=== PATIENT | female | born 1945 | race Caucasian/White ===

== ENCOUNTER → 2017-03-29 | Day surgery (SDC) | payer MEDICARE, BC ==
[~2017-03-29] MED LIST: AMLODIPINE BESYL5 MG PO; AZITHROMYCIN250 MG PO; BENADRYL25 M1 PO; BENZONATATE100 MG PO; BUPIVACAINE 0.25% 30ML SDV INJ ONE; CALCIUM 500+D1 EACH PO; CEFDINIR300 MG PO; CELEBREX100 MG PO; CHLORTHALIDONE25 MG; CLARITIN10 MG PO; CRESTOR10 MG PO; CYMBALTA60 MG PO; FENTANYL CITRATE/PF 100MCG/2 ML INJ ONE; GRALISE600 MG PO; HYDROCHLOROTHIA25 MG PO; HYDROCODON-ACE1 EA12 PO; IOPAMIDOL 200 MG/ML 20 ML VIAL IT ONE; IRON18 MG PO; LIDOCAINE HCL 1% 30ML-PF VIAL ONE; LISINOPRIL40 MG PO; LYRICA75 MG PO; MELOXICAM7.5 MG PO; METFORMIN HCL1000 MG PO; METHOCARBAMOL750 MG PO; MIDAZOLAM HCL 2 MG/2 ML VIAL ONE; MULTI-VITAMIN1 EACH PO; MULTIVITAMINS1 EAC8 PO; NEXIUM; NORCO 10-325 T1 EACH PO; NORCO 10MG-325MG1 EA PO; PANTOPRAZOLE SO40 MG PO; POTASSIUM GLUCONATE PO; PROPOFOL IV EMULSION 10 MG/ML 20 ML VIAL ONE; RANITIDINE HCL300 MG PO; REFLUX MEDICATION PO; ROPINIROLE HC0.25 MG PO; ROPINIROLE HCL1 MG PO; STOOL SOFTENER50 MG PO; SUCRALFATE1 GM PO; TIZANIDINE HCL4 MG PO; VITAMIN B12-FO1 EACH PO; VITAMIN C PO; VITAMIN D400 UNIT PO; VITAMIN D5000 UNIT PO; VOLTAREN100 GM TP; Z-PAK
--- OUTSIDE RECORDS SUMMARY | 2017-03-29 05:43 | XMS REPORT | Clinical Summary ---
Author Author [facility] Address Unknown Phone Unavailable Care Team Providers Care Regional Maintenance Manager Name Role Phone Peña Vela MD PCP Allergies Active Allergy Reactions Severity Noted Date Comments Sulfa (Sulfonamide Rash High 05/05/2015 Antibiotics) Tramadol Rash High 05/05/2015 Current Medications Prescription Sig. Disp. Refills Start End Date Status Date HYDROcodone-acetaminophen Take 1 tablet by mouth 4 0 05/17/19 Active (NORCO 10-325) 10-325 mg (four) times a day. 16 per tablet rOPINIRole (REQUIP) 1 MG Take 1 tablet by mouth 1 04/25/19 Active tablet daily. 16 multivitamin (THERAGRAN) Take 1 tablet by mouth Active tablet daily. rOPINIRole (REQUIP) 0.25 as needed. 1 05/02/19 Active MG tablet 17 ERGOCALCIFEROL, VITAMIN Take by mouth. 5,000 Active D2, (VITAMIN D2 ORAL) POTASSIUM ACETATE MISC 599 mg. Active esomeprazole (NexIUM) 40 Take 1 capsule by mouth 0 09/09/19 Active MG capsule daily. 17 LYRICA 75 mg capsule Take 1 capsule by mouth 2 1 08/15/19 Active (two) times a day. 17 tiZANidine (ZANAFLEX) 4 Take 1 tablet by mouth 2 0 11/03/19 Active MG tablet (two) times a day. 17 nystatin-triamcinolone 1 10/30/19 Active (MYCOLOG) 100,000-0.1 17 unit/gram-% ointment mupirocin (BACTROBAN) 2 % 1 10/06/19 Active ointment 17 rosuvastatin (CRESTOR) 10 Take 1 tablet (10 mg 90 tablet 1 11/08/19 Active MG tablet total) by mouth daily. 17 metFORMIN XR Take 1 tablet (750 mg 180 tablet 1 11/08/19 Active (GLUCOPHAGE-XR) 750 mg 24 total) by mouth 2 (two) 17 hr tablet times a day. lisinopril Take 1 tablet (40 mg 90 tablet 1 11/08/19 Active (PRINIVIL,ZESTRIL) 40 mg total) by mouth daily. 17 tablet VOLTAREN 1 % gel Apply topically 4 (four) 500 g 11 11/08/19 Active times a day. 17 chlorthalidone (HYGROTEN) Take 1 tablet (25 mg 90 tablet 0 01/18/20 01/18/20 Active 25 MG tablet total) by mouth daily. 17 18 fluocinolone acetonide 0 01/11/20 Active oil 0.01 % drops 17 ipratropium (ATROVENT) 0 01/10/20 Active 0.03 % nasal spray 17 amLODIPine (NORVASC) 5 mg TAKE ONE TABLET BY MOUTH 90 tablet 1 Active tabletIndications: ONCE DAILY 18 Essential hypertension DULoxetine (CYMBALTA) 60 TAKE ONE CAPSULE BY MOUTH 90 capsule 1 Active MG capsule TWICE DAILY 18 meloxicam (MOBIC) 15 mg Take 1 tablet (15 mg 90 tablet 1 03/16/19 Active tablet total) by mouth daily for 18 18 90 days. VOLTAREN 1 % gel 1 04/29/19 11/08/19 Discontin 16 17 ued lidocaine (XYLOCAINE) 5 % 0 10/25/19 11/08/19 Discontin ointment 16 17 ued baclofen (LIORESAL) 20 MG 0 10/21/19 11/08/19 Discontin tablet 16 17 ued PREGABALIN (LYRICA ORAL) Take 75 mg by mouth 2 11/08/19 Discontin (two) times a day. 17 ued amLODIPine (NORVASC) 5 MG Take 1 tablet (5 mg 90 tablet 1 11/18/19 05/16/19 Discontin tabletIndications: total) by mouth daily. 16 17 ued Essential hypertension DULoxetine (CYMBALTA) 60 Take 1 capsule (60 mg 90 capsule 1 11/18/19 05/16/19 Discontin MG capsule total) by mouth daily. 16 17 ued hydrochlorothiazide Take 1 tablet (25 mg 90 tablet 1 11/18/19 Discontin (HYDRODIURIL) 25 MG total) by mouth daily. 16 17 ued tabletIndications: Essential hypertension lisinopril Take 1 tablet (40 mg 90 tablet 1 11/18/19 05/16/19 Discontin (PRINIVIL,ZESTRIL) 40 MG total) by mouth daily. 16 17 ued tablet loratadine (CLARITIN) 10 Take 1 tablet (10 mg 90 tablet 1 11/18/19 11/08/19 Discontin mg tablet total) by mouth daily. 16 17 ued metFORMIN XR Take 1 tablet (750 mg 180 tablet 1 11/18/19 05/16/19 Discontin (GLUCOPHAGE-XR) 750 MG 24 total) by mouth 2 (two) 16 17 ued hr tablet times a day. rosuvastatin (CRESTOR) 10 Take 1 tablet (10 mg 90 tablet 1 11/18/19 05/16/19 Discontin MG tablet total) by mouth daily. 16 17 ued meloxicam (MOBIC) 7.5 MG Take 1 tablet (7.5 mg 180 tablet 1 11/18/19 05/19/19 Discontin tabletIndications: total) by mouth 2 (two) 16 17 ued Arthritis times a day. ranitidine (ZANTAC) 300 Take 1 tablet (300 mg 90 tablet 3 11/18/19 05/16/19 Discontin MG tablet total) by mouth nightly. 16 17 ued methocarbamol (ROBAXIN) Take 750 mg by mouth 11/08/19 Discontin 750 MG tablet daily. 17 ued amLODIPine (NORVASC) 2.5 Take 1 tablet (2.5 mg 90 tablet 1 05/16/19 11/08/19 Discontin mg tabletIndications: total) by mouth daily. 17 17 ued Essential hypertension hydroCHLOROthiazide Take 1 tablet (12.5 mg 90 tablet 1 05/16/1904/24 Discontin (HYDRODIURIL) 12.5 MG total) by mouth daily. 17 17 ued tabletIndications: Essential hypertension DULoxetine (CYMBALTA) 60 Take 1 capsule (60 mg 90 capsule 1 05/16/19 09/09/19 Discontin MG capsule total) by mouth 2 (two) 17 17 ued times a day. lisinopril Take 1 tablet (40 mg 90 tablet 1 05/16/19 05/19/19 Discontin (PRINIVIL,ZESTRIL) 40 mg total) by mouth daily. 17 17 ued tablet metFORMIN XR Take 1 tablet (750 mg 180 tablet 1 05/16/19 11/08/19 Discontin (GLUCOPHAGE-XR) 750 mg 24 total) by mouth 2 (two) 17 17 ued hr tablet times a day. rosuvastatin (CRESTOR) 10 Take 1 tablet (10 mg 90 tablet 1 05/16/19 11/08/19 Discontin MG tablet total) by mouth daily. 17 17 ued ranitidine (ZANTAC) 300 Take 1 tablet (300 mg 90 tablet 1 05/16/19 01/10/20 Discontin MG tablet total) by mouth nightly. 17 17 ued lisinopril Take 1 tablet (40 mg 90 tablet 1 05/23/19 11/08/19 Discontin (PRINIVIL,ZESTRIL) 40 mg total) by mouth daily. 17 17 ued tablet meloxicam (MOBIC) 7.5 mg Take 1 tablet (7.5 mg 180 tablet 1 05/23/19 11/08/19 Discontin tabletIndications: total) by mouth 2 (two) 17 17 ued Arthritis times a day. loratadine (CHILDREN'S Chew 1 tablet (5 mg 30 tablet 11 05/23/1904/24 Discontin CLARITIN) 5 mg chewable total) daily. 17 17 ued tablet meloxicam (MOBIC) 7.5 mg TAKE ONE TABLET BY MOUTH 180 tablet 0 11/08/19 Discontin tabletIndications: TWICE DAILY 17 17 ued Arthritis DULoxetine (CYMBALTA) 60 TAKE ONE CAPSULE BY MOUTH 90 capsule 1 11/08/19 Discontin MG capsule TWICE DAILY 17 17 ued cetirizine (ZyrTEC) 10 MG Take 10 mg by mouth 03/16/19 Discontin tablet daily. 18 ued hydroCHLOROthiazide Take 1 tablet (12.5 mg 90 tablet 1 11/08/1906/24 Discontin (HYDRODIURIL) 12.5 MG total) by mouth daily. 17 17 ued tabletIndications: Essential hypertension amLODIPine (NORVASC) 2.5 Take 1 tablet (2.5 mg 90 tablet 1 11/08/19 01/10/20 Discontin mg tabletIndications: total) by mouth daily. 17 17 ued Essential hypertension meloxicam (MOBIC) 7.5 mg Take 1 tablet (7.5 mg 180 tablet 1 11/08/19 11/25/19 Discontin tabletIndications: total) by mouth 2 (two) 17 17 ued Arthritis times a day. DULoxetine (CYMBALTA) 60 Take 1 capsule (60 mg 90 capsule 1 11/08/19 03/02/19 Discontin MG capsule total) by mouth 2 (two) 17 18 ued times a day. celecoxib (CeleBREX) 200 Take 1 capsule (200 mg 30 capsule 5 11/25/19 12/25/19 MG capsule total) by mouth daily for 17 17 30 days. celecoxib (CeleBREX) 200 2 01/10/20 02/23/19 Discontin MG capsule 17 18 ued QUEtiapine (SEROquel) 25 0 01/10/20 02/23/19 Discontin MG tablet 17 18 ued amLODIPine (NORVASC) 5 mg Take 1 tablet (5 mg 30 tablet 0 01/10/20 02/23/19 Discontin tablet total) by mouth daily. 17 18 ued hydroCHLOROthiazide Take 1 tablet (25 mg 30 tablet 0 01/10/20 Discontin (HYDRODIURIL) 25 MG total) by mouth daily. 17 17 ued tablet meloxicam (MOBIC) 7.5 mg Take 1 tablet (7.5 mg 90 tablet 0 02/23/19 03/16/19 Discontin tablet total) by mouth daily. 18 18 ued Active Problems Problem Noted Date BMI 30.0-30.9,adult 03/18/2017 Influenza vaccination administered at current visit 11/07/2016 Arthritis 11/07/2016 Overview: cont prn tx Mixed hyperlipidemia 05/14/2012 Recurrent major depressive episodes, in full remission 12/12/2010 Diabetes mellitus 10/25/2010 Essential hypertension 10/25/2010 Encounters Date Type Specialty Care Team Description 03/16/2017 Clinical Family Medicine Peña Vlea MD Blood pressure check Support (Primary Dx); BMI 30.0-30.9,adult 03/02/2017 Refill Family Medicine Peña Vela MD 02/23/2017 Office Visit Family Medicine Haley Sylvester NP Trigeminal neuralgia (Primary Dx) 02/22/2017 Telephone Family Medicine Merced Sumner MA 02/17/2017 Refill [facility] Peña Vela MD Essential hypertension 01/26/2017 Clinical [facility] Peña Vela MD Blood pressure check Support (Primary Dx) 01/17/2017 Office Visit [facility] Haley Sylvester, YAMEL Essential hypertension 01/17/2017 Telephone [facility] Peña Vela MD 01/09/2017 Office Visit [facility] Haley Sylvester, YAMEL Essential hypertension 11/27/2016 Office Visit [facility] Peña Vela MD Blood pressure check (Primary Dx) 11/24/2016 Clinical [facility] Peña Vela MD Essential hypertension Support (Primary Dx) 11/10/2016 Refill [facility] Alicia Biggs MA 11/07/2016 Office Visit [facility] Peña Vela MD Mixed hyperlipidemia (Primary Dx); Essential hypertension; Arthritis; Recurrent major depressive episodes, in full remission; Type 2 diabetes mellitus without complication, without long-term current use of insulin; Influenza vaccination administered at current visit; Elevated platelet count 09/08/2016 Refill [facility] Peña Gray MD 05/18/2016 Refill [facility] Peña Vela MD Arthritis 05/15/2016 Office Visit [facility] Peña Vela MD Type 2 diabetes mellitus without complication, without long-term current use of insulin (Primary Dx); Essential hypertension; Recurrent major depressive episodes, in full remission; Mixed hyperlipidemia; Arthritis after 03/28/2016 Immunizations Name Dates Previously Given Next Due DTaP 09/11/2014 FLUZONE HIGH-DOSE PF 11/07/2016, 11/18/2015 Influenza Trivalent 11/24/2014, 11/24/2012, 11/16/2011 Pneumococcal Conjugate 05/26/2014 13-Valent Family History Medical History Relation Name Comments Alzheimer's disease Father Arthritis Mother Heart disease Mother Relation Name Status Comments Father Mother Social History Tobacco Use Types Packs/Day Years Used Date Former Smoker Quit: 2001 Smokeless Tobacco: Never Used Alcohol Use Drinks/Week oz/Week Comments No Sex Assigned at Date Recorded Not on file Last Filed Vital Signs Vital Sign Reading Time Taken Blood Pressure 130/80 03/16/2017 1:22 PM [employer]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 Pulse 68 03/16/2017 1:22 PM [employer]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 Temperature 36.6 C (97.8 F) 03/16/2017 1:22 PM [employer]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 Respiratory Rate 18 02/23/2017 10:05 AM [employer]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 Oxygen Saturation 97% 03/16/2017 1:22 PM [employer]ART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 Inhaled Oxygen - - Concentration Weight 76.3 kg (168 lb 3.2 oz) 03/16/2017 1:22 PM [employer]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 Height 158.8 cm (5' 2.5") 03/16/2017 1:22 PM [employer]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 Body Mass Index 30.27 03/16/2017 1:22 PM [employer]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 Plan of Treatment Date Type Specialty Care Team Description 05/08/2017 Office Visit Family Medicine Peña Vela MD [address] [place] [address] [phone] Health Maintenance Due Date Last Done Comments FOOT EXAM 1957 OPHTHALMOLOGY EXAM 1957 COLONOSCOPY 1997 MAMMOGRAM 1997 ZOSTER VACCINE 2007 PNEUMOCOCCAL 02/04/2012 POLYSACCHARIDE VACCINE AGE 65 AND OVER URINE MICROALBUMIN 05/08/2017 05/08/2016, 11/08/2015, 05/06/2015 PNEUMOCOCCAL-13 Completed 05/26/2014 INFLUENZA VACCINE Completed 11/07/2016, 11/18/2015, 11/24/2014, Additional history exists Results * Urinalysis, automated with microscopy (10/31/2016 8:15 AM) Only the most recent of 2 results within the time period is included. Component Value Ref Range Color, UA YELLOW YELLOW Appearance CLEAR CLEAR Specific gravity, urine 1.015 1.001 - 1.035 pH, urine 5.5 5.0 - 8.0 Glucose, urine NEGATIVE NEGATIVE Bilirubin, UA NEGATIVE NEGATIVE Ketones, UA NEGATIVE NEGATIVE Occult blood, urine NEGATIVE NEGATIVE Protein, UA NEGATIVE NEGATIVE Nitrite, UA NEGATIVE NEGATIVE Leukocyte esterase, UA TRACE (A) NEGATIVE WBC, UA NONE SEEN < OR=5 /HPF RBC, UA NONE SEEN < OR=2 /HPF Squamous epithelial NONE SEEN < OR=5 /HPF cells, UA Bacteria, UA NONE SEEN NONE SEEN /HPF Hyaline casts, UA NONE SEEN NONE SEEN /LPF Specimen Performing Laboratory [facility] Narrative FASTING:YES * CBC with platelet and differential (10/31/2016 8:15 AM) Only the most recent of 2 results within the time period is included. Component Value Ref Range WBC 7.8 3.8 - 10.8 Thousand/uL RBC 4.34 3.80 - 5.10 Million/uL HGB 12.1 11.7 - 15.5 g/dL HCT 37.7 35.0 - 45.0 % MCV 86.9 80.0 - 100.0 fL MCH 27.9 27.0 - 33.0 pg MCHC 32.1 32.0 - 36.0 g/dL RDW 12.4 11.0 - 15.0 % Platelet count 412 (H) 140 - 400 Thousand/uL MPV 9.4 7.5 - 12.5 fL Neutrophils, absolute 3,463 1,500 - 7,800 cells/uL Lymphocytes, absolute 3,299 850 - 3,900 cells/uL Monocytes, absolute 757 200 - 950 cells/uL Eosinophils, absolute 211 15 - 500 cells/uL Basophils, absolute 70 0 - 200 cells/uL Neutrophils 44.4 % Lymphocytes 42.3 % Monocytes 9.7 % Eosinophils 2.7 % Basophils + RC 0.9 % Specimen Performing Laboratory Blood [facility] Narrative FASTING:YES * Hemoglobin A1c (10/31/2016 8:15 AM) Only the most recent of 2 results within the time period is included. Component Value Ref Range Hemoglobin A1C 6.2 (H) <5.7 % of total Hgb Comment: For someone without known diabetes, a hemoglobin A1c value between 5.7% and 6.4% is consistent with prediabetes and should be confirmed with a follow-up test. For someone with known diabetes, a value <7% indicates that their diabetes is well controlled. A1c targets should be individualized based on duration of diabetes, age, comorbid conditions, and other considerations. This assay result is consistent with an increased risk of diabetes. Currently, no consensus exists regarding use of hemoglobin A1c for diagnosis of diabetes for children. Specimen Performing Laboratory [facility] Narrative FASTING:YES * Hepatic function panel (10/31/2016 8:15 AM) Component Value Ref Range Protein 6.2 6.1 - 8.1 g/dL Albumin, S 4.0 3.6 - 5.1 g/dL Globulin, total 2.2 1.9 - 3.7 g/dL (calc) Albumin/globulin ratio 1.8 1.0 - 2.5 (calc) Total bilirubin 0.3 0.2 - 1.2 mg/dL Bilirubin direct 0.1 < OR=0.2 mg/dL Bilirubin, indirect 0.2 0.2 - 1.2 mg/dL (calc) Alkaline phosphatase 63 33 - 130 U/L AST 13 10 - 35 U/L ALT 11 6 - 29 U/L Specimen Performing Laboratory [facility] Narrative FASTING:YES * Lipid panel (10/31/2016 8:15 AM) Component Value Ref Range Cholesterol, total 132 <200 mg/dL HDL cholesterol 65 >50 mg/dL Triglycerides 114 <150 mg/dL LDL cholesterol 47 mg/dL (calc) calculated Comment: Reference range: <100 Desirable range <100 mg/dL for patients with CHD or diabetes and <70 mg/dL for diabetic patients with known heart disease. LDL-C is now calculated using the Francia calculation, which is a validated novel method providing better accuracy than the Friedewald equation in the estimation of LDL-C. Eduar SS et al. BRIAN. 2013;310(17): 8521-9874 (http://education.[employer]/faq/QAO750) Cholesterol/HDL ratio 2.0 <5.0 (calc) Non-HDL cholesterol 67 <130 mg/dL (calc) Comment: For patients with diabetes plus 1 major ASCVD risk factor, treating to a non-HDL-C goal of <100 mg/dL (LDL-C of <70 mg/dL) is considered a therapeutic option. Specimen Performing Laboratory [facility] Narrative FASTING:YES * Basic metabolic panel (10/31/2016 8:15 AM) Only the most recent of 2 results within the time period is included. Component Value Ref Range Glucose 116 (H) 65 - 99 mg/dL Comment: Fasting reference interval For someone without known diabetes, a glucose value between 100 and 125 mg/dL is consistent with prediabetes and should be confirmed with a follow-up test. BUN, whole blood 11 7 - 25 mg/dL Creatinine 0.84 0.50 - 0.99 mg/dL Comment: For patients >49 years of age, the reference limit for Creatinine is approximately 13% higher for people identified as -Cuban. EGFR Non-Afr. Cuban 71 > OR=60 mL/min/1.73m2 EGFR 82 > OR=60 mL/min/1.73m2 BUN/creatinine ratio NOT APPLICABLE 6 - 22 (calc) Sodium 137 135 - 146 mmol/L Potassium 4.6 3.5 - 5.3 mmol/L Chloride 96 (L) 98 - 110 mmol/L CO2 32 (H) 20 - 31 mmol/L Calcium 10.0 8.6 - 10.4 mg/dL Specimen Performing Laboratory [facility] Narrative FASTING:YES * Microalbumin / creatinine urine ratio (05/08/2016 10:17 AM) Component Value Ref Range Creatinine, urine, random 35 20 - 320 mg/dL Microalbumin, urine 0.2 See Note: mg/dL Comment: Reference Range: Reference Range Not established Microalbumin/creatinine 6 <30 mcg/mg creat ratio Comment: The ADA defines abnormalities in albumin excretion as follows: Category Result (mcg/mg creatinine) Normal <30 Microalbuminuria 30-299 Clinical albuminuria > [id number] The ADA recommends that at least two of three specimens collected within a 3-6 month period be abnormal before considering a patient to be within a diagnostic category. Specimen Performing Laboratory Urine [facility] Narrative FASTING:YES after 03/28/2016 Insurance Payer Benefit Subscriber ID Type Phone Address Plan / Group MEDICARE MEDICARE xxxxxxxxxx Medicare [place], [place] PART A AND B BCBS BCBS xxxxxxxxxxxx PPO CHOICE PPO/[place] [address]
--- OUTSIDE RECORDS SUMMARY | 2017-03-29 05:43 | XMS REPORT ---
Author Author [facility] Address Unknown Phone Unavailable Care Team Providers Care [place] [place] Name Role Phone RAMY MARK PP Unavailable DARIUS SKINNER Unavailable Unavailable Problems This patient has no known problems. Allergies, Adverse Reactions, Alerts This patient has no known allergies or adverse reactions. Medications This patient has no known medications. Encounters Start Date/Time End Date/Time Encounter Type Admission Type Attending Clinicians Care Facility Care Department Encounter ID 2016-08-01 11:05:00 2016-08-01 11:05:00 Outpatient C [facility] [id number] Results Test Description Test Time Test Comments Text Results Atomic Results Result Comments MRI SPINE CERVICAL WO [place] [address] Patient Name: ZAIDA GARZA MR #: [id number] : 1945 Age/Sex: 71/F Req #: [id number] Adm Physician: Ordered by: DARIUS SKINNER MD Report #: [id number] Location: MRI Room/Bed: Procedure: [id number] MRI/MRI SPINE CERVICAL WO Exam Date: 01/10/17 Exam Time: 909 REPORT STATUS: Signed EXAMINATION: MRI of the cervical spine without contrast HISTORY: Neck and shoulder pain, cervical radiculopathy COMPARISON: None available TECHNIQUE: Sagittal T1, T2 , STIR; axial T2, gradient echo. FINDINGS: Curvature: Normal lordosis. Vertebrae: No evidence of neoplasm, infection, or fracture. Diffuse increased T1 bone marrow signal intensity, likely related to osteopenia. Foramen magnum: No mass, Chiari malformation, or basilar invagination. Spinal Cord: Normal size and signal intensity. Soft Tissues: Unremarkable. Incidentally noted prominent perineural cysts along the bilateral C8 nerve root sleeves. Degenerative changes: C1-C2: Small amount of fluid in the right C1-C2 articular space. No canal or foraminal stenosis. C2-C3: Prominent facet arthrosis on the left. No canal or foraminal stenoses C3-C4: Facet arthrosis minimally on the left. No canal or foraminal stenoses C4-C5: Mild bilateral facet arthrosis without canal or foraminal stenoses C5-C6: Mild symmetric disc bulge and facet arthrosis without stenoses C6-C7: Unremarkable. C7-T1: Unremarkable. IMPRESSION: 1. Small amount of fluid in the right C1- C2 articular space, likely related to degenerative changes. 2. Multilevel mild facet arthrosis without canal or foraminal stenosis. Signed by: Dr. Zandra Sherman M.D. on 01/11/2017 7:09 AM Dictated By: ZANDRA SHERMAN MD 8 Transcribed By: HERSON on 01/11/17708 COPY TO: DARIUS SKINNER MD MRI BRAIN WO [place] [address] Patient Name: ZAIDA GARZA MR #: [id number] : 1945 Age/Sex: 71/F Req #: [id number] Adm Physician: Ordered by: DARIUS SKINNER MD Report #: [id number] Location: MRI Room/Bed: Procedure: [id number] MRI/MRI BRAIN WO Exam Date: 11/13/16 Exam Time: 1115 REPORT STATUS: Signed History: Trigeminal neuralgia, left facial pain and memory loss. Headaches Comparison studies: None Technique: Sagittal T2; axial DWI, FLAIR, MPGR, T1, Coronal FLAIR. Intravenous contrast: None Findings: Scalp: Normal in signal . No masses . Bone marrow: Normal in signal intensity. Extra-axial: No masses, no fluid collections. Normal appearance of the arts education teacher, Meckel's caves, and cavernous sinuses. Brain sulci: Appropriate for age. Ventricles: Normal in size . No hydrocephalus . Parenchyma: Scattered T2/FLAIR hyperintensities of the periventricular and the white matter. Similar changes at the level of the cristiane No masses, hemorrhage, acute or chronic vascular insults. Age expected volume loss at the level of the hippocampi and temporal lobes. Suprasellar region: No abnormalities. Craniocervical junction: No abnormalities. Patent foramen magnum. No Chiari one malformation. Vessels: Normal flow-voids in the arteries and sinuses. IMPRESSION: 1. No acute intracranial abnormalities. 2. Mild chronic microvascular ischemic changes of the white matter Signed by: DR Jason Harvey M.D. on 11/13/2016 1:47 PM Dictated By: JASON VIZCARRA MD 46 Transcribed By: HERSON on 11/13/161346 COPY TO: DARIUS SKINNER MD MRI SPINE LUMBAR WOW [place] [address] Patient Name: ZAIDA GARZA MR #: [id number] : 1945 Age/Sex: 71/F Req #: [id number] Adm Physician: Ordered by: DARIUS SKINNER MD Report #: [id number] Location: MRI Room/Bed: Procedure: [id number] MRI/MRI SPINE LUMBAR WOW Exam Date: Exam Time: REPORT STATUS: Signed History: Back pain. Comparison studies: None Technique: Sagittal, coronal and axial T2 , sagittal T1 and IR, axial spin density oblique. Intravenous contrast: None Findings: Number of lumbar vertebral bodies:5 Alignment: Normal lordosis.No scoliosis. Soft tissues: No T2 hyperintense inflammatory changes. 2.5 cm cortical renal cyst in the posterior aspect of the right interpolar region. 1 cm cortical renal cyst is seen in the lateral aspect of the right interpolar region. Paraspinal muscles: Mild fatty infiltration. Lower thoracic cord:Normal in signal and morphology. The tip of the conus is at L1. Cauda equina: No masses. No arachnoiditis. Vertebrae: Normal in height and signal intensity. No compression fractures, infection or neoplasm. Degenerative changes: L1-L2: Bilateral foraminal perineural cysts measuring up to 8 mm on the left side. Patent canal and foramina. L2-L3: Bilateral perineural cysts measuring up to 6 mm on the right side. Patent canal and foramina. L3-L4: Disc degeneration with loss of T2 signal. Mild bilateral facet hypertrophy with patent canal and foramina. Nonvisualization of the ligamentum flavum, could be related to previous intervention. L4-L5: Disc degeneration with loss of T2 signal. Moderate bilateral facet hypertrophy with patent canal and foramina. Trace of fluid of the bilateral facet joints. Nonvisualization of the ligamentum flavum secondary to previous intervention. L5-S1: Disc degeneration with loss of T2 signal. Right foraminal perineural cyst measuring 1 cm in transverse diameter. Patent canal and moderate left foraminal narrowing. Severe bilateral facet. Additional findings: Perineural cysts at the bilateral sacral nerve roots the largest one at the S3 on the right measuring 3 cm in transverse diameter. No abnormal enhancement. IMPRESSION: Laminectomy changes at L4-L5. Moderate left foraminal narrowing at L5-S1 secondary to severe facet hypertrophy. Moderate to severe facet hypertrophy at the lower lumbar spine without other significant areas of canal stenosis or foraminal narrowing. Multiple perineural cysts at the lumbar and sacral spine foramens the largest one at the right S3 nerve root. Signed by: DR Jason Harvey M.D. on 11/13/2016 1:37 PM Dictated By: JASON VIZCARRA MD 36 Transcribed By: HERSON on 11/13/161336 COPY TO: DARIUS SKINNER MD
[2017-03-29 06:36] LABS: BASOPHILS # (AUTO) 0.1 (0.0-0.1); BASOPHILS % 1.2 % (0.0-1.0); EOSINOPHILS # (AUTO) 0.2 (0.0-0.4); EOSINOPHILS % 2.6 % (0.0-6.0); HEMATOCRIT 35.6 % (34.2-44.1); HEMOGLOBIN 12.4 g/dL (12.0-16.0); LYMPHOCYTES # (AUTO) 2.6 (1.0-3.2); LYMPHOCYTES % 28.4 % (18.0-39.1); MEAN CORPUSCULAR HEMOGLOBIN 28.6 pg (28-32); MEAN CORPUSCULAR HGB CONC 34.8 g/dL (31-35); MEAN CORPUSCULAR VOLUME 82.2 fL (81-99); MONOCYTES # (AUTO) 0.9 (0.2-0.8); MONOCYTES % 10.1 % (4.4-11.3); NEUTROPHILS # (AUTO) 5.2 (2.1-6.9); NEUTROPHILS % 57.2 % (38.7-80.0); PLATELET COUNT 406 x10e3/uL (140-360); RED BLOOD COUNT 4.33 x10e6/uL (3.6-5.1); RED CELL DISTRIBUTION WIDTH 12.4 % (11.7-14.4)
== END | disposition home or self-care (01) ==
LOC: OR 05:38
PROVIDERS: ATTEND Physical Medicine & Rehabilitation Pain Medicine
DX: G50.0 Trigeminal neuralgia (principal); M54.81 Occipital neuralgia; M47.22 Other spondylosis with radiculopathy, cervical region; M54.16 Radiculopathy, lumbar region; M46.1 Sacroiliitis, not elsewhere classified; M70.61 Trochanteric bursitis, right hip; M70.62 Trochanteric bursitis, left hip; I10 Essential (primary) hypertension; K21.9 Gastro-esophageal reflux disease without esophagitis; E11.9 Type 2 diabetes mellitus without complications; Z79.82 Long term (current) use of aspirin; Z68.33 Body mass index [BMI] 33.0-33.9, adult; Z87.891 Personal history of nicotine dependence
CPT/HCPCS: 36415; 64510; 82948; 85025; 93005; J2001; J2250; Q9966; 77003

== ENCOUNTER → 2017-04-12 | Day surgery (SDC) | payer MEDICARE, BC ==
[~2017-04-12] MED LIST changes: -BUPIVACAINE 0.25% 30ML SDV INJ ONE; -IOPAMIDOL 200 MG/ML 20 ML VIAL IT ONE; -LIDOCAINE HCL 1% 30ML-PF VIAL ONE; +LIDOCAINE HCL 2% LOCAL INJ 5 ML SDV VIAL INJ ONE; +METOCLOPRAMIDE HCL 10 MG/2ML VIAL ONE; -NEXIUM; +NEXIUM PO; +ONDANSETRON HCL INJ 2 MG/ML VIAL ONE; +ROCURONIUM BROMIDE 10 MG/ML 5ML VIAL ONE; +SUCCINYLCHOLINE 200 MG/10 ML SYR ONE
--- OUTSIDE RECORDS SUMMARY | 2017-04-12 06:11 | XMS REPORT | Clinical Summary ---
Author Author [facility] Organization [facility] Address Unknown Phone Unavailable Care Team Providers Care Vp Clinical Name Role Phone Peña Vela MD PCP [...] 11 11/08/19 Active times a day. 17 fluocinolone acetonide 0 01/11/20 Active oil 0.01 [...] mouth daily for 18 18 90 days. chlorthalidone (HYGROTEN) TAKE ONE TABLET BY MOUTH 90 tablet 0 Active 25 MG tablet ONCE DAILY 18 sucralfate (CARAFATE) 1 Take 1 tablet (1 g total) 120 tablet 0 04/07/19 Active gram tablet by mouth 4 (four) times a 18 19 day. VOLTAREN 1 % gel 1 04/29/19 11/08/19 [...] by mouth daily. 17 17 ued tablet chlorthalidone (HYGROTEN) Take 1 tablet (25 mg 90 tablet 0 01/18/20 04/02/19 Discontin 25 MG tablet total) by mouth daily. 17 18 ued meloxicam (MOBIC) 7.5 mg Take 1 tablet [...] Encounters Date Type Specialty Care Team Description 04/06/2017 Office Visit Family Medicine Peña Vela MD Costochondritis (Primary Dx); Closed fracture of anatomical neck of left humerus, sequela 04/02/2017 Refill [facility] Haley Kent, YAMEL 03/16/2017 Clinical [facility] Peña Gray MD Blood pressure check Support (Primary Dx); BMI 30.0-30.9,adult 03/02/2017 Refill Peña Alaniz MD 02/23/2017 Office Visit [facility] Medicine Haley Sylvester, YAMEL Trigeminal neuralgia (Primary Dx) 02/22/2017 Telephone [facility] Merced Sumner MA 02/17/2017 Refill [facility] Peña Gray MD Essential hypertension 01/26/2017 Clinical [facility] Peña Gray MD Blood pressure check Support (Primary Dx) 01/17/2017 Office Visit [facility] Haley Kent NP Essential hypertension 01/17/2017 Telephone [facility] Peña Gray MD 01/09/2017 Office Visit [facility] Haley Kent, YAMEL Essential hypertension 11/27/2016 Office Visit [facility] Peña Gray MD Blood pressure check (Primary Dx) 11/24/2016 Clinical [facility] Peña Gray MD Essential hypertension Support (Primary Dx) 11/10/2016 Refill [facility] Alicia Biggs MA 11/07/2016 Office Visit [facility] Peña Gray MD Mixed hyperlipidemia (Primary Dx); Essential hypertension; Arthritis; Recurrent major depressive episodes, in full remission; Type 2 diabetes mellitus without complication, without long-term current use of insulin; Influenza vaccination administered at current visit; Elevated platelet count 09/08/2016 Peña Love MD 05/18/2016 Refill Peña Alaniz MD Arthritis 05/15/2016 Office Visit [facility] Peña Gray MD Type 2 diabetes mellitus without complication, without long-term current use of insulin (Primary Dx); Essential hypertension; Recurrent major depressive episodes, in full remission; Mixed hyperlipidemia; Arthritis after 04/11/2016 Immunizations Name Dates Previously Given Next Due [...] Vital Sign Reading Time Taken Blood Pressure 130/84 04/06/2017 11:29 AM EQUIP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 TECH Pulse 87 04/06/2017 11:29 AM EQUIP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 TECH Temperature 36.8 C (98.3 F) 04/06/2017 11:29 AM EQUIP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 TECH Respiratory Rate 18 02/23/2017 10:05 AM EQUIP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 TECH Oxygen Saturation 94% 04/06/2017 11:29 AM EQUIP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 TECH Inhaled Oxygen - - Concentration Weight 77.3 kg (170 lb 6.4 oz) 04/06/2017 11:29 AM EQUIP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 TECH Height 158.8 cm (5' 2.5") 04/06/2017 11:29 AM EQUIP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 TECH Body Mass Index 30.67 04/06/2017 11:29 AM EQUIP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 TECH Plan of Treatment Date Type Specialty Care Team Description 04/16/2017 Office Visit Physical Therapy Peña Vela MD [address] [place] [address] [phone] Katie Roth, PT 05/08/2017 Office Visit Family Medicine Peña Vela MD [address] [place] [address] [phone] Health Maintenance Due Date Last Done Comments [...] disease. LDL-C is now calculated using the Eduar-Zuniga calculation, which is a validated novel method providing better accuracy than the Friedewald equation in the estimation of LDL-C. Eduar GARZA et al. BRIAN. 2013;310(19): 5664-2021 (http://education.[employer]/faq/QJB849) Cholesterol/HDL ratio 2.0 <5.0 (calc) Non-HDL cholesterol [...] approximately 13% higher for people identified as -Panamanian. EGFR Non-Afr. Panamanian 71 > OR=60 mL/min/1.73m2 EGFR 82 > [...] Normal <30 Microalbuminuria 30-299 Clinical albuminuria > [place]=580 The ADA recommends that at least two of three specimens collected within a 3-6 month period be abnormal before considering a patient to be within a diagnostic category. Specimen Performing Laboratory Urine [facility] Narrative FASTING:YES after 04/11/2016 Insurance Payer Benefit Subscriber ID Type Phone Address Plan / Group MEDICARE MEDICARE xxxxxxxxxx Medicare [place], [place] PART A AND B BCBS BCBS xxxxxxxxxxxx PPO CHOICE PPO/[place] [address]
== END | disposition home or self-care (01) ==
LOC: OR 06:08
PROVIDERS: ATTEND Physical Medicine & Rehabilitation Pain Medicine
DX: M47.816 Spondylosis without myelopathy or radiculopathy, lumbar region (principal); M47.817 Spondylosis without myelopathy or radiculopathy, lumbosacral region; M47.812 Spondylosis without myelopathy or radiculopathy, cervical region; M54.16 Radiculopathy, lumbar region; M54.12 Radiculopathy, cervical region; M54.81 Occipital neuralgia; M46.1 Sacroiliitis, not elsewhere classified; M70.62 Trochanteric bursitis, left hip; M70.61 Trochanteric bursitis, right hip; I10 Essential (primary) hypertension; E11.9 Type 2 diabetes mellitus without complications; K21.9 Gastro-esophageal reflux disease without esophagitis; K27.9 Peptic ulcer, site unspecified, unspecified as acute or chronic, without hemorrhage or perforation; Z68.33 Body mass index [BMI] 33.0-33.9, adult; Z91.81 History of falling
CPT/HCPCS: 36415; 64493; 64494; 64495; 82948; J2001; J2250; J2405; J2765; 77003

== ENCOUNTER → 2017-04-26 | Day surgery (SDC) | payer MEDICARE, BC ==
[~2017-04-26] MED LIST changes: +IOPAMIDOL 200 MG/ML 20 ML VIAL IT ONE; +LIDOCAINE HCL 1% 30ML-PF VIAL ONE; -METOCLOPRAMIDE HCL 10 MG/2ML VIAL ONE; -ONDANSETRON HCL INJ 2 MG/ML VIAL ONE; -ROCURONIUM BROMIDE 10 MG/ML 5ML VIAL ONE; -SUCCINYLCHOLINE 200 MG/10 ML SYR ONE; +TRIAMCINOLONE ACET 40 MG/ML VIAL ONE
--- OUTSIDE RECORDS SUMMARY | 2017-04-26 05:29 | XMS REPORT | Clinical Summary ---
Author Author Alan [facility] Organization [facility] Address Unknown Phone Unavailable Care Team Providers Care Ticket Manager Name Role Phone Peña Vela MD [...] neck of left humerus, sequela 04/02/2017 Refill [facility] Haley Kent, YAMEL 03/16/2017 Clinical [facility] Peña Gray MD Blood pressure check Support (Primary Dx); BMI 30.0-30.9,adult 03/02/2017 Refill Peña Alaniz MD 02/23/2017 Office Visit [facility] Medicine Haley Sylvester, YAMEL Trigeminal neuralgia (Primary Dx) 02/22/2017 Telephone [facility] Merced Sumner MA 02/17/2017 Refill [facility] Peña Gray MD Essential hypertension 01/26/2017 Clinical [facility] Peña Gray MD Blood pressure check Support (Primary Dx) 01/17/2017 Office Visit [facility] Haley Kent NP Essential hypertension 01/17/2017 Telephone [facility] Peña Gray MD 01/09/2017 Office Visit [facility] Haley Kent, YAMEL Essential hypertension 11/27/2016 Office Visit [facility] Peña Gray MD Blood pressure check (Primary Dx) 11/24/2016 Clinical [facility] Peña Gray MD Essential hypertension Support (Primary Dx) 11/10/2016 Refill [facility] Alicia Biggs MA 11/07/2016 Office Visit [facility] Peña Gray MD Mixed hyperlipidemia (Primary Dx); Essential hypertension; Arthritis; Recurrent major depressive episodes, in full remission; Type 2 diabetes mellitus without complication, without long-term current use of insulin; Influenza vaccination administered at current visit; Elevated platelet count 09/08/2016 Peña Love MD 05/18/2016 Refill Peña Alaniz MD Arthritis 05/15/2016 Office Visit [facility] Peña Gray MD Type 2 diabetes mellitus without complication, without long-term current use of insulin (Primary Dx); Essential hypertension; Recurrent major depressive episodes, in full remission; Mixed hyperlipidemia; Arthritis after 04/25/2016 Immunizations Name Dates Previously Given Next Due [...] Taken Blood Pressure 130/84 04/06/2017 11:29 AM CAREER TECHNICAL EDUCATION INSTRUCTOR Pulse 87 04/06/2017 11:29 AM CAREER TECHNICAL EDUCATION INSTRUCTOR Temperature 36.8 C (98.3 F) 04/06/2017 11:29 AM CAREER TECHNICAL EDUCATION INSTRUCTOR Respiratory Rate 18 02/23/2017 10:05 AM CAREER TECHNICAL EDUCATION INSTRUCTOR Oxygen Saturation 94% 04/06/2017 11:29 AM CAREER TECHNICAL EDUCATION INSTRUCTOR Inhaled Oxygen - - Concentration Weight 77.3 kg (170 lb 6.4 oz) 04/06/2017 11:29 AM CAREER TECHNICAL EDUCATION INSTRUCTOR Height 158.8 cm (5' 2.5") 04/06/2017 11:29 AM CAREER TECHNICAL EDUCATION INSTRUCTOR Body Mass Index 30.67 04/06/2017 11:29 AM CAREER TECHNICAL EDUCATION INSTRUCTOR Plan of Treatment Date Type Specialty Care Team Description 05/08/2017 Office Visit Family Medicine Peña Vela MD [address] [place] [address] [phone] Health Maintenance Due Date Last Done Comments [...] of LDL-C. Eduar SS et al. BRIAN. 2013;310(19): 4533-8575 (http://education.[employer]/faq/ZME093) Cholesterol/HDL ratio 2.0 <5.0 (calc) Non-HDL cholesterol [...] approximately 13% higher for people identified as -English. EGFR Non-Afr. English 71 > OR=60 mL/min/1.73m2 EGFR 82 > [...] Normal <30 Microalbuminuria 30-299 Clinical albuminuria > IR=049 The ADA recommends that at least two of three specimens collected within a 3-6 month period be abnormal before considering a patient to be within a diagnostic category. Specimen Performing Laboratory Urine [facility] Narrative FASTING:YES after 04/25/2016 Insurance Payer Benefit Subscriber ID Type Phone Address Plan / Group MEDICARE MEDICARE xxxxxxxxxx Medicare [place], [place] PART A AND B BCBS BCBS xxxxxxxxxxxx PPO CHOICE PPO/[place] [address]
== END | disposition home or self-care (01) ==
LOC: OR 05:26
PROVIDERS: ATTEND Physical Medicine & Rehabilitation Pain Medicine
DX: M47.816 Spondylosis without myelopathy or radiculopathy, lumbar region (principal); M47.817 Spondylosis without myelopathy or radiculopathy, lumbosacral region; M47.812 Spondylosis without myelopathy or radiculopathy, cervical region; M54.16 Radiculopathy, lumbar region; M54.12 Radiculopathy, cervical region; M46.1 Sacroiliitis, not elsewhere classified; G50.0 Trigeminal neuralgia; M54.81 Occipital neuralgia; M70.62 Trochanteric bursitis, left hip; M70.61 Trochanteric bursitis, right hip; I45.2 Bifascicular block; I10 Essential (primary) hypertension; E11.9 Type 2 diabetes mellitus without complications; K21.9 Gastro-esophageal reflux disease without esophagitis; Z68.33 Body mass index [BMI] 33.0-33.9, adult; Z91.81 History of falling
CPT/HCPCS: 36415; 64493; 64494; 64495; 82948; J2001 ×2; J2250; J3301; Q9966; 77003

== ENCOUNTER → 2017-07-05 | Day surgery (SDC) | payer MEDICARE, BC ==
[2017-07-04 16:04] LABS: BASOPHILS # (AUTO) 0.1 (0.0-0.1); BASOPHILS % 1.3 % (0.0-1.0); EOSINOPHILS # (AUTO) 0.3 (0.0-0.4); EOSINOPHILS % 3.4 % (0.0-6.0); HEMATOCRIT 34.8 % (34.2-44.1); HEMOGLOBIN 11.5 g/dL (12.0-16.0); LYMPHOCYTES # (AUTO) 2.9 (1.0-3.2); LYMPHOCYTES % 38.6 % (18.0-39.1); MEAN CORPUSCULAR HEMOGLOBIN 28.1 pg (28-32); MEAN CORPUSCULAR VOLUME 85.1 fL (81-99); MONOCYTES # (AUTO) 0.9 (0.2-0.8); MONOCYTES % 12.1 % (4.4-11.3); NEUTROPHILS # (AUTO) 3.4 (2.1-6.9); NEUTROPHILS % 44.1 % (38.7-80.0); PLATELET COUNT 357 x10e3/uL (140-360); RED BLOOD COUNT 4.09 x10e6/uL (3.6-5.1); RED CELL DISTRIBUTION WIDTH 12.9 % (11.7-14.4)
[~2017-07-05] MED LIST changes: +FLUOCINOLONE AC20 ML EACH EAR; -IOPAMIDOL 200 MG/ML 20 ML VIAL IT ONE; +IPRATROPIUM BRO15 ML; -MIDAZOLAM HCL 2 MG/2 ML VIAL ONE
--- OUTSIDE RECORDS SUMMARY | 2017-07-05 07:24 | XMS REPORT | Clinical Summary ---
Author Author [facility] Organization [facility] Address Unknown Phone Unavailable Care Team Providers Care Manager Infusion Name Role Phone Peña Vela MD PCP [...] ORAL) POTASSIUM ACETATE MISC 599 mg. Active LYRICA 75 mg capsule Take 1 capsule by mouth 2 1 08/15/19 Active (two) times a day. 17 tiZANidine (ZANAFLEX) 4 Take 1 tablet by mouth 2 0 11/03/19 Active MG tablet (two) times a day. 17 nystatin-triamcinolone 1 10/30/19 Active (MYCOLOG) 100,000-0.1 17 unit/gram-% ointment mupirocin (BACTROBAN) 2 % 1 10/06/19 Active ointment 17 VOLTAREN 1 % gel Apply topically 4 (four) 500 g 11 11/08/19 Active times a day. 17 fluocinolone acetonide 0 01/11/20 Active oil 0.01 % drops 17 ipratropium (ATROVENT) 0 01/10/20 Active 0.03 % nasal spray 17 sucralfate (CARAFATE) 1 Take 1 tablet (1 g total) 120 tablet 0 04/07/19 Active gram tablet by mouth 4 (four) times a 18 19 day. ipratropium (ATROVENT) 42 0 05/08/19 Active mcg (0.06 %) nasal spray 18 amLODIPine (NORVASC) 5 mg Take 1 tablet (5 mg 90 tablet 1 05/09/19 Active tabletIndications: total) by mouth daily. 18 Essential hypertension DULoxetine (CYMBALTA) 60 Take 1 capsule (60 mg 90 capsule 1 05/09/19 Active MG capsule total) by mouth 2 (two) 18 times a day. esomeprazole (NexIUM) 40 Take 1 capsule (40 mg 90 capsule 3 05/09/19 Active MG capsule total) by mouth daily. 18 lisinopril Take 1 tablet (40 mg 90 tablet 1 05/09/19 Active (PRINIVIL,ZESTRIL) 40 mg total) by mouth daily. 18 tablet meloxicam (MOBIC) 15 mg Take 1 tablet (15 mg 90 tablet 1 05/09/19 Active tablet total) by mouth daily for 18 18 90 days. metFORMIN XR Take 1 tablet (750 mg 180 tablet 1 05/09/19 Active (GLUCOPHAGE-XR) 750 mg 24 total) by mouth 2 (two) 18 hr tablet times a day. rosuvastatin (CRESTOR) 10 Take 1 tablet (10 mg 90 tablet 1 05/09/19 Active MG tablet total) by mouth daily. 18 VOLTAREN 1 % gel 1 04/29/19 11/08/19 Discontin 16 17 ued lidocaine (XYLOCAINE) 5 % 0 10/25/19 11/08/19 Discontin ointment 16 17 ued baclofen (LIORESAL) 20 MG 0 10/21/19 11/08/19 Discontin tablet 16 17 ued PREGABALIN (LYRICA ORAL) Take 75 mg by mouth 2 11/08/19 Discontin (two) times a day. 17 ued loratadine (CLARITIN) 10 Take 1 tablet (10 mg 90 tablet 1 11/18/19 11/08/19 Discontin mg tablet total) by mouth daily. 16 17 ued methocarbamol (ROBAXIN) Take 750 [...] (two) 17 17 ued times a day. metFORMIN XR Take 1 tablet (750 mg [...] mouth 03/16/19 Discontin tablet daily. 18 ued esomeprazole (NexIUM) 40 Take 1 capsule by mouth 0 09/09/19 05/09/19 Discontin MG capsule daily. 17 18 ued rosuvastatin (CRESTOR) 10 Take 1 tablet (10 mg 90 tablet 1 11/08/19 05/09/19 Discontin MG tablet total) by mouth daily. 17 18 ued metFORMIN XR Take 1 tablet (750 mg 180 tablet 1 11/08/19 05/09/19 Discontin (GLUCOPHAGE-XR) 750 mg 24 total) by mouth 2 (two) 17 18 ued hr tablet times a day. lisinopril Take 1 tablet (40 mg 90 tablet 1 11/08/19 05/09/19 Discontin (PRINIVIL,ZESTRIL) 40 mg total) by mouth daily. 17 18 ued tablet hydroCHLOROthiazide Take 1 tablet (12.5 mg 90 [...] total) by mouth daily. 17 18 ued amLODIPine (NORVASC) 5 mg TAKE ONE TABLET BY MOUTH 90 tablet 1 05/09/19 Discontin tabletIndications: ONCE DAILY 18 18 ued Essential hypertension meloxicam (MOBIC) 7.5 mg Take 1 tablet (7.5 mg 90 tablet 0 02/23/19 03/16/19 Discontin tablet total) by mouth daily. 18 18 ued DULoxetine (CYMBALTA) 60 TAKE ONE CAPSULE BY MOUTH 90 capsule 1 05/09/19 Discontin MG capsule TWICE DAILY 18 18 ued meloxicam (MOBIC) 15 mg Take 1 tablet (15 mg 90 tablet 1 03/16/19 Discontin tablet total) by mouth daily for 18 18 ued 90 days. chlorthalidone (HYGROTEN) TAKE ONE TABLET BY MOUTH 90 tablet 0 05/09/19 Discontin 25 MG tablet ONCE DAILY 18 18 ued Active Problems Problem Noted Date Pneumococcal vaccination administered at current visit 05/10/2017 Hyponatremia 05/08/2017 BMI 30.0-30.9,adult 03/18/2017 Influenza vaccination administered at current visit 11/07/2016 Arthritis 11/07/2016 Overview: cont prn tx Mixed hyperlipidemia 05/14/2012 Recurrent major depressive episodes, in full remission 12/12/2010 Diabetes mellitus 10/25/2010 Essential hypertension 10/25/2010 Encounters Date Type Specialty Care Team Description 06/22/2017 Telephone Family Medicine Alicia Biggs MA 06/21/2017 Orders Only Family Medicine Haley Sylvester NP Perineural cysts (Primary Dx) 06/21/2017 Documentation Family Medicine Haley Sylvester NP 06/20/2017 Telephone Family Medicine Alicia Biggs MA 06/18/2017 Orders Only Family Medicine Haley Sylvester NP 06/18/2017 Orders Only Family Medicine Alicia Biggs MA 06/15/2017 [facility] Peña Vela MD Abnormal CT scan, neck Encounter 06/12/2017 Procedure Pass Radiology 06/12/2017 Orders Only Family Medicine Alicia Biggs MA Abnormal CT scan, neck (Primary Dx) 06/12/2017 Orders Only Family Medicine Haley Sylvester NP Abnormal CT scan, neck (Primary Dx) 06/08/2017 [facility] Haley Sylvestre NP Fall, initial encounter; Encounter Concussion without loss of consciousness, initial encounter; Acute post-traumatic headache, not intractable; Neck pain 06/08/2017 [facility] Peña Vela MD Fall, initial encounter; Encounter Concussion without loss of consciousness, initial encounter; Acute post-traumatic headache, not intractable; Neck pain 06/06/2017 Office Visit Family Haley Kent NP Fall , initial encounter (Primary Dx); Concussion without loss of consciousness, initial encounter; Acute post-traumatic headache, not intractable; Neck pain 05/16/2017 Clinical Family Haley Kent NP Essential hypertension Support (Primary Dx); Tachycardia 05/08/2017 Office Visit Family Peña Gray MD Mixed hyperlipidemia (Primary Dx); Recurrent major depressive episodes, in full remission; Type 2 diabetes mellitus without complication, without long-term current use of insulin; Essential hypertension; Hyponatremia; Essential hypertension; Pneumococcal vaccination administered at current visit 04/06/2017 Office Visit Family Peña Gray MD Costochondritis (Primary Dx); Closed fracture of anatomical neck of left humerus, sequela 04/02/2017 Refill Family Haley Kent NP 03/16/2017 Clinical Family Peña Gray MD Blood pressure check Support (Primary Dx); BMI 30.0-30.9,adult 03/02/2017 Refill Family Peña Gray MD 02/23/2017 Office Visit Family Haley Kent NP Trigeminal neuralgia (Primary Dx) 02/22/2017 Telephone Family Medicine Merced Sumner MA 02/17/2017 Refill [facility] Peña Vela MD Essential hypertension 01/26/2017 Clinical [facility] Peña Vela MD Blood pressure check Support (Primary Dx) 01/17/2017 Office Visit [facility] Haley Sylvester, YAMEL Essential hypertension 01/17/2017 Telephone [facility] Peña Vela MD 01/09/2017 Office Visit [facility] Haley Sylvester, YAMEL Essential hypertension 11/27/2016 Office Visit [facility] Peña Vela MD Blood pressure check (Primary Dx) 11/24/2016 Clinical [facility] Peña Vela MD Essential hypertension Support (Primary Dx) 11/10/2016 Refill [facility] Alicia Biggs MA 11/07/2016 Office Visit [facility] Peña Vela MD Mixed hyperlipidemia (Primary Dx); Essential hypertension; Arthritis; Recurrent major depressive episodes, in full remission; Type 2 diabetes mellitus without complication, without long-term current use of insulin; Influenza vaccination administered at current visit; Elevated platelet count 09/08/2016 Refill [facility] Peña Vela MD after 07/04/2016 Immunizations Name Dates Previously Given Next Due DTaP 09/11/2014 FLUZONE HIGH-DOSE PF 11/07/2016, 11/18/2015 Influenza Trivalent 11/24/2014, 11/24/2012, 11/16/2011 Pneumococcal Conjugate 05/26/2014 13-Valent Pneumococcal 05/08/2017 Polysaccharide Family History Medical History Relation Name Comments Alzheimer's disease Father Arthritis Mother Heart disease Mother Relation Name Status Comments Father Mother Social History Tobacco Use Types Packs/Day Years Used Date Former Smoker Quit: 2001 Smokeless Tobacco: Never Used Alcohol Use Drinks/Week oz/Week Comments No Sex Assigned at Date Recorded Not on file Last Filed Vital Signs Vital Sign Reading Time Taken Blood Pressure 130/82 06/06/2017 3:50 PM CDT Pulse 87 06/06/2017 3:50 PM CDT Temperature 36.7 C (98 F) 06/06/2017 3:50 PM CDT Respiratory Rate 18 05/16/2017 1:31 PM CDT Oxygen Saturation 98% 06/06/2017 3:50 PM CDT Inhaled Oxygen - - Concentration Weight 77.6 kg (171 lb) 06/06/2017 3:50 PM CDT Height 158.8 cm (5' 2.5") 06/06/2017 3:50 PM CDT Body Mass Index 30.78 06/06/2017 3:50 PM CDT Plan of Treatment Date Type Specialty Care Team Description 11/12/2017 Office Visit Family Medicine Peña Vela MD [address] [place] [address] [phone] Health Maintenance Due Date Last Done Comments BREAST CANCER SCREENING 1997 SHINGRIX VACCINE (#1) 1997 ZOSTER VACCINE 2007 INFLUENZA VACCINE 09/05/2017 11/07/2016, 11/18/2015, 11/24/2014, Additional history exists URINE MICROALBUMIN 05/01/2018 05/01/2017, 05/08/2016, 11/08/2015, Additional history exists DIABETIC FOOT EXAM 05/08/2018 05/08/2017, 05/08/2017 DIABETIC RETINAL EYE EXAM 05/09/2018 05/09/2016 COLON CANCER SCREENING 01/05/2021 01/05/2011 PNEUMOCOCCAL-13 Completed 05/26/2014 PNEUMOCOCCAL Completed 05/08/2017, 05/08/2017 POLYSACCHARIDE VACCINE AGE 65 AND OVER Results * MRI Cervical Spine W Wo Contrast (06/15/2017 1:39 PM) Specimen Performing Laboratory [address] [address] Narrative EXAMINATION:MRI CERVICAL SPINE W WO CONTRAST CLINICAL HISTORY:R93.8 Abnormal findings on diagnostic imaging of other specified body structures, Abnormal CT Neck Prominent Soft Tissue Density T1-T2 COMPARISON:June 08, 2017 FINDINGS: Cervical spine alignment is within normal limits. Disc spaces are preserved. No suspicious focal bone marrow lesions. Visualized spinal cord is normal in appearance. C2-3: No central canal or foraminal narrowing. C3-4: No central canal or foraminal narrowing. C4-5: Bilateral facet arthropathy and uncal arthrosis causes mild left foraminal narrowing. No central canal narrowing. Small posterior central disc fusion. C5-C6: Mild facet and uncal arthrosis. No canal or foraminal narrowing. C6-C7: No canal or foraminal narrowing. C7-T1: No canal or foraminal narrowing. Bilateral perineural sleeve cysts. Nerve roots are seen within the cysts. No abnormal postcontrast enhancement. T1-T2: Prominent bilateral perineural sleeve cysts without postcontrast enhancement. Nerve roots are present within the cysts. No abnormal postcontrast enhancement. IMPRESSION: No canal narrowing. Mild left C4-5 foraminal narrowing. 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 [facility]-[id number] Procedure Note Hm Interface, Radiology Results Incoming - 06/15/2017 4:08 PM CDT EXAMINATION: MRI CERVICAL SPINE W WO CONTRAST CLINICAL HISTORY: R93.8 Abnormal findings on diagnostic imaging of other specified body structures, Abnormal CT Neck Prominent Soft Tissue Density T1-T2 COMPARISON: June 08, 2017 FINDINGS: Cervical spine alignment is within normal limits. Disc spaces are preserved. No suspicious focal bone marrow lesions. Visualized spinal cord is normal in appearance. C2-3: No central canal or foraminal narrowing. C3-4: No central canal or foraminal narrowing. C4-5: Bilateral facet arthropathy and uncal arthrosis causes mild left foraminal narrowing. No central canal narrowing. Small posterior central disc fusion. C5-C6: Mild facet and uncal arthrosis. No canal or foraminal narrowing. C6-C7: No canal or foraminal narrowing. C7-T1: No canal or foraminal narrowing. Bilateral perineural sleeve cysts. Nerve roots are seen within the cysts. No abnormal postcontrast enhancement. T1-T2: Prominent bilateral perineural sleeve cysts without postcontrast enhancement. Nerve roots are present within the cysts. No abnormal postcontrast enhancement. IMPRESSION: No canal narrowing. Mild left C4-5 foraminal narrowing. 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 [facility]-[id number] * POC creatinine (06/15/2017 12:45 PM) Component Value Ref Range POC creatinine 0.8 0.5 - 0.9 mg/dl Specimen Performing Laboratory Blood [facility] OF [facility]OLOGY [facility] GENOMIC MEDICINE [address] [place] [address] * CT Cervical Spine Wo Contrast (06/08/2017 2:20 PM) Specimen Performing Laboratory [facility] [address] [place] [address] Narrative EXAMINATION: CT CERVICAL SPINE WO CONTRAST CLINICAL HISTORY: W19.XXXA Unspecified fallinitial encounter, S06.0X0A Concussion without loss of consciousnessinitial encounter, fall neck pain headache COMPARISON:None TECHNIQUE: Axial noncontrast enhanced images of the cervical spine were obtained with coronal and sagittal reconstructed algorithms. CT imaging was performed with iterative reconstruction technique and/or automated exposure control to reduce radiation dose. FINDINGS: No fracture identified. Craniocervical junction appears intact. Metallic plate noted posterior to the right mastoid. Alignment is within normal limits without evidence of acute subluxation. No suspicious osseous lesion identified. Axial images through the disc spaces demonstrate the following: C1-C2: No significant spinal canal stenosis. C2-C3: No significant posterior disc disease, spinal canal or neural foraminal stenosis. Moderate bilateral facet arthrosis, left greater than right. C3-C4: No significant posterior disc disease or spinal canal stenosis. Marked right and moderate left facet arthrosis with mild right neural foraminal narrowing. Patent left neural foramen. C4-C5: Bulky left facet arthrosis indents the lateral aspect of the thecal sac contributing to mild left lateral recess narrowing. Patent bilateral foramina. No significant posterior disc disease or spinal canal stenosis. C5-C6: No significant posterior disc disease or spinal canal stenosis. Left- sided uncovertebral facet hypertrophy injury to mild left neural foraminal narrowing. Patent right neural foramen. C6-C7: No significant posterior disc disease, spinal canal or neural foraminal stenosis. C7-T1: No significant posterior disc disease, spinal canal or neural foraminal stenosis. Question of bilateral perineural root sleeve cysts, left greater than right. Prominent soft tissue density extending from the bilateral neural foramina at T1 -T2 which may reflect masses or perineural root sleeve cysts. Enlargement of the thyroid with calcifications noted laterally on the right. Arteriosclerosis of the carotid bifurcations. IMPRESSION: 1. No CT evidence of acute traumatic injury to the cervical spine. 2. Prominent soft tissue density extending from the bilateral neural foramina at T1-T2 which may reflect masses or perineural root sleeve cysts. Clarification could be obtained with contrast-enhanced MRI. [id number] Procedure Note Hm Interface, Radiology Results 06/08/2017 6:38 PM CDT EXAMINATION: CT CERVICAL SPINE WO CONTRAST CLINICAL HISTORY: W19.XXXA Unspecified fall initial encounter, S06.0X0A Concussion without loss of consciousness initial encounter, fall neck pain headache COMPARISON: None TECHNIQUE: Axial noncontrast enhanced images of the cervical spine were obtained with coronal and sagittal reconstructed algorithms. CT imaging was performed with iterative reconstruction technique and/or automated exposure control to reduce radiation dose. FINDINGS: No fracture identified. Craniocervical junction appears intact. Metallic plate noted posterior to the right mastoid. Alignment is within normal limits without evidence of acute subluxation. No suspicious osseous lesion identified. Axial images through the disc spaces demonstrate the following: C1-C2: No significant spinal canal stenosis. C2-C3: No significant posterior disc disease, spinal canal or neural foraminal stenosis. Moderate bilateral facet arthrosis, left greater than right. C3-C4: No significant posterior disc disease or spinal canal stenosis. Marked right and moderate left facet arthrosis with mild right neural foraminal narrowing. Patent left neural foramen. C4-C5: Bulky left facet arthrosis indents the lateral aspect of the thecal sac contributing to mild left lateral recess narrowing. Patent bilateral foramina. No significant posterior disc disease or spinal canal stenosis. C5-C6: No significant posterior disc disease or spinal canal stenosis. Left- sided uncovertebral facet hypertrophy injury to mild left neural foraminal narrowing. Patent right neural foramen. C6-C7: No significant posterior disc disease, spinal canal or neural foraminal stenosis. C7-T1: No significant posterior disc disease, spinal canal or neural foraminal stenosis. Question of bilateral perineural root sleeve cysts, left greater than right. Prominent soft tissue density extending from the bilateral neural foramina at T1 -T2 which may reflect masses or perineural root sleeve cysts. Enlargement of the thyroid with calcifications noted laterally on the right. Arteriosclerosis of the carotid bifurcations. IMPRESSION: 1. No CT evidence of acute traumatic injury to the cervical spine. 2. Prominent soft tissue density extending from the bilateral neural foramina at T1-T2 which may reflect masses or perineural root sleeve cysts. Clarification could be obtained with contrast-enhanced MRI. [id number] * CT Head Wo Contrast (06/08/2017 2:20 PM) Specimen Performing Laboratory [address] [address] Narrative EXAMINATION: CT HEAD WO CONTRAST COMPARISON: None CLINICAL HISTORY W19.XXXA Unspecified fallinitial encounter, S06.0X0A Concussion without loss of consciousnessinitial encounter, fall headache. TECHNIQUE: Non-contrast CT scan of the head with thin-section contiguous transaxial images from the skull base to the vertex. CT scans are performed using radiation dose reduction techniques. Technical factors are evaluated and adjusted to ensure appropriate moderation of exposure. Automated dose management technology is applied to adjust radiation exposure while achieving a highly diagnostic quality image. FINDINGS: Nonenhanced emergency cranial CT was performed at approximately 1401 hours. There is generalized atrophic ventricular and sulcal dilatation. There are chronic microvascular ischemic changes in the centrum semiovale and basal ganglia bilaterally and in the cristiane bilaterally. There is no acute hemorrhage or extra-axial mass or fluid collection. IMPRESSION: Generalized involutional changes with dilated ventricles and sulci and chronic microvascular disease in the deep white matter. No acute hemorrhage or hyperdense vessels. [facility]-[id number] Procedure Note Hm Interface, Radiology Results Incoming - 06/08/2017 2:25 PM CDT EXAMINATION: CT HEAD WO CONTRAST COMPARISON: None CLINICAL HISTORY W19.XXXA Unspecified fall initial encounter, S06.0X0A Concussion without loss of consciousness initial encounter, fall headache. TECHNIQUE: Non-contrast CT scan of the head with thin-section contiguous transaxial images from the skull base to the vertex. CT scans are performed using radiation dose reduction techniques. Technical factors are evaluated and adjusted to ensure appropriate moderation of exposure. Automated dose management technology is applied to adjust radiation exposure while achieving a highly diagnostic quality image. FINDINGS: Nonenhanced emergency cranial CT was performed at approximately 1401 hours. There is generalized atrophic ventricular and sulcal dilatation. There are chronic microvascular ischemic changes in the centrum semiovale and basal ganglia bilaterally and in the cristiane bilaterally. There is no acute hemorrhage or extra-axial mass or fluid collection. IMPRESSION: Generalized involutional changes with dilated ventricles and sulci and chronic microvascular disease in the deep white matter. No acute hemorrhage or hyperdense vessels. [facility]-[id number] * ECG 12 lead (05/16/2017 1:42 PM) Component Value Ref Range Ventricular rate 93 Atrial rate 93 MI interval 164 QRSD interval 128 QT interval 386 QTC interval 479 P axis 1 59 QRS axis 1 -56 T wave axis 30 EKG impression Normal sinus rhythm-Right bundle branch block-Left anterior fascicular block-^^^ Bifascicular block ^^^-Abnormal ECG-In automated comparison with ECG of 29-OCT-2015 14:36,-No significant change was found- Specimen Performing Laboratory [facility] [address] [place] [address] * Microalbumin / creatinine urine ratio (05/01/2017 8:13 AM) Component Value Ref Range Creatinine, urine, random 36 20 - 320 mg/dL Microalbumin, urine <0.2 See Note: mg/dL Comment: Reference Range: Reference Range Not established Microalbumin/creatinine NOTE <30 mcg/mg creat ratio Comment: The microalbumin value is less than 0.2 mg/dL therefore we are unable to calculate excretion and/or creatinine ratio. The ADA defines abnormalities in albumin excretion as follows: Category Result (mcg/mg creatinine) Normal <30 Microalbuminuria 30-299 Clinical albuminuria > IH=443 The ADA recommends that at least two of three specimens collected within a 3-6 month period be abnormal before considering a patient to be within a diagnostic category. Specimen Performing Laboratory U[facility] Narrative FASTING:YES FASTING: YES * Urinalysis, automated with microscopy (05/01/2017 8:13 AM) Only the most recent of 2 results within the time period is included. Component Value Ref Range Color, UA YELLOW YELLOW Appearance CLEAR CLEAR Specific gravity, urine < OR=1.005 1.001 - 1.035 pH, urine 6.5 5.0 - 8.0 Glucose, urine NEGATIVE NEGATIVE Bilirubin, UA NEGATIVE NEGATIVE Ketones, UA NEGATIVE NEGATIVE Occult blood, urine NEGATIVE NEGATIVE Protein, UA NEGATIVE NEGATIVE Nitrite, UA NEGATIVE NEGATIVE Leukocyte esterase, UA NEGATIVE NEGATIVE WBC, UA NONE SEEN < OR=5 /HPF RBC, UA NONE SEEN < OR=2 /HPF Squamous epithelial NONE SEEN < OR=5 /HPF cells, UA Bacteria, UA NONE SEEN NONE SEEN /HPF Hyaline casts, UA NONE SEEN NONE SEEN /LPF Specimen Performing Laboratory [facility] Narrative FASTING:YES FASTING: YES * CBC with platelet and differential (05/01/2017 8:13 AM) Only the most recent of 2 results within the time period is included. Component Value Ref Range WBC 11.0 (H) 3.8 - 10.8 Thousand/uL RBC 4.44 3.80 - 5.10 Million/uL HGB 12.4 11.7 - 15.5 g/dL HCT 37.7 35.0 - 45.0 % MCV 84.9 80.0 - 100.0 fL MCH 27.9 27.0 - 33.0 pg MCHC 32.9 32.0 - 36.0 g/dL RDW 12.4 11.0 - 15.0 % Platelet count 483 (H) 140 - 400 Thousand/uL MPV 8.6 7.5 - 12.5 fL Neutrophils, absolute 6,534 1,500 - 7,800 cells/uL Lymphocytes, absolute 3,234 850 - 3,900 cells/uL Monocytes, absolute 1,100 (H) 200 - 950 cells/uL Eosinophils, absolute 66 15 - 500 cells/uL Basophils, absolute 66 0 - 200 cells/uL Neutrophils 59.4 % Lymphocytes 29.4 % Monocytes 10.0 % Eosinophils 0.6 % Basophils + RC 0.6 % Specimen Performing Laboratory Blood [facility] Narrative FASTING:YES FASTING: YES * Hemoglobin A1c (05/01/2017 8:13 AM) Only the most recent of 2 results within the time period is included. Component Value Ref Range Hemoglobin A1C 6.6 (H) <5.7 % of total Hgb Comment: For someone without known diabetes, a hemoglobin A1c value of 6.5% or greater indicates that they may have diabetes and this should be confirmed with a follow-up test. For someone with known diabetes, a value <7% indicates that their diabetes is well controlled and a value greater than or equal to 7% indicates suboptimal control. A1c targets should be individualized based on duration of diabetes, age, comorbid conditions, and other considerations. Currently, no consensus exists regarding use of hemoglobin A1c for diagnosis of diabetes for children. Specimen Performing Laboratory Blood [facility] Narrative FASTING:YES FASTING: YES * Hepatic function panel (05/01/2017 8:13 AM) Only the most recent of 2 results within the time period is included. Component Value Ref Range Protein 6.9 6.1 - 8.1 g/dL Albumin, S 4.4 3.6 - 5.1 g/dL Globulin, total 2.5 1.9 - 3.7 g/dL (calc) Albumin/globulin ratio 1.8 1.0 - 2.5 (calc) Total bilirubin 0.6 0.2 - 1.2 mg/dL Bilirubin direct 0.2 < OR=0.2 mg/dL Bilirubin, indirect 0.4 0.2 - 1.2 mg/dL (calc) Alkaline phosphatase 57 33 - 130 U/L AST 11 10 - 35 U/L ALT 12 6 - 29 U/L Specimen Performing Laboratory [facility] Narrative FASTING:YES FASTING: YES * Basic metabolic panel (05/01/2017 8:13 AM) Only the most recent of 2 results within the time period is included. Component Value Ref Range Glucose 131 (H) 65 - 99 mg/dL Comment: Fasting reference interval For someone without known diabetes, a glucose value >125 mg/dL indicates that they may have diabetes and this should be confirmed with a follow-up test. BUN, whole blood 14 7 - 25 mg/dL Creatinine 0.94 (H) 0.60 - 0.93 mg/dL Comment: For patients >49 years of age, the reference limit for Creatinine is approximately 13% higher for people identified as -Scottish. EGFR Non-Afr. [place] 61 > OR=60 mL/min/1.73m2 EGFR 71 > OR=60 mL/min/1.73m2 BUN/creatinine ratio 15 6 - 22 (calc) Sodium 126 (L) 135 - 146 mmol/L Comment: Verified by repeat analysis. Potassium 4.8 3.5 - 5.3 mmol/L Chloride 84 (L) 98 - 110 mmol/L Comment: Verified by repeat analysis. CO2 34 (H) 20 - 31 mmol/L Calcium 10.5 (H) 8.6 - 10.4 mg/dL Specimen Performing Laboratory [facility] Narrative FASTING:YES FASTING: YES * Lipid panel (10/31/2016 8:15 AM) Component Value Ref Range Cholesterol, total 132 <200 mg/dL HDL cholesterol 65 >50 mg/dL Triglycerides 114 <150 mg/dL LDL cholesterol 47 mg/dL (calc) calculated Comment: Reference range: <100 Desirable range <100 mg/dL for patients with CHD or diabetes and <70 mg/dL for diabetic patients with known heart disease. LDL-C is now calculated using the Eduar-Efrain calculation, which is a validated novel method providing better accuracy than the Friedewald equation in the estimation of LDL-C. Eduar SS et al. BRIAN. 2013;310(19): 4780-9743 (http://education.[employer]/faq/SUM039) Cholesterol/HDL ratio 2.0 <5.0 (calc) Non-HDL cholesterol 67 <130 mg/dL (calc) Comment: For patients with diabetes plus 1 major ASCVD risk factor, treating to a non-HDL-C goal of <100 mg/dL (LDL-C of <70 mg/dL) is considered a therapeutic option. Specimen Performing Laboratory Blood [facility] Narrative FASTING:YES after 07/04/2016 Insurance Payer Benefit Subscriber ID Type Phone Address Plan / Group MEDICARE MEDICARE xxxxxxxxxx Medicare [place], [place] PART A AND B BCBS BCBS xxxxxxxxxxxx PPO CHOICE PPO/FEDER[place] L EMPL PPO BCBS BCBS xxxxxxxxxxx Indemnity PAR/TRAD PLAN
== END | disposition home or self-care (01) ==
LOC: OR 07:22
PROVIDERS: ATTEND Physical Medicine & Rehabilitation Pain Medicine
DX: M47.22 Other spondylosis with radiculopathy, cervical region (principal); M54.16 Radiculopathy, lumbar region; M46.1 Sacroiliitis, not elsewhere classified; M54.81 Occipital neuralgia; M47.817 Spondylosis without myelopathy or radiculopathy, lumbosacral region; M47.816 Spondylosis without myelopathy or radiculopathy, lumbar region; I10 Essential (primary) hypertension; E11.9 Type 2 diabetes mellitus without complications; I45.10 Unspecified right bundle-branch block; F32.9 Major depressive disorder, single episode, unspecified; Z88.2 Allergy status to sulfonamides; Z91.048 Other nonmedicinal substance allergy status; Z01.810 Encounter for preprocedural cardiovascular examination; Z01.812 Encounter for preprocedural laboratory examination; Z79.84 Long term (current) use of oral hypoglycemic drugs; Z68.32 Body mass index [BMI] 32.0-32.9, adult; Z91.81 History of falling
CPT/HCPCS: 36415 ×2; 64490; 64491; 64492; 82948; 85025; 93005; J2001 ×2; J3301; 77003

== ENCOUNTER → 2017-10-25 | Day surgery (SDC) | payer MEDICARE, BC ==
[~2017-10-25] MED LIST changes: +ASPIR-LOW81 MG; +CLONIDINE HCL0.1 MG PO; +DEXAMETHASONE SOD PHOS 10 MG/1 ML VIAL ONE; +DOXAZOSIN MESYLA2 MG PO; +HYDROCHLOROTH12.5 MG; +IOPAMIDOL 200 MG/ML 20 ML VIAL IT ONE; -LIDOCAINE HCL 1% 30ML-PF VIAL ONE; +LOSARTAN POTAS100 MG PO; +MELOXICAM15 MG; +METOPROLOL PO; +MIDAZOLAM HCL 2 MG/2 ML VIAL ONE; +MULTI-VITAMIN1 EACH; +POTASSIUM; -TRIAMCINOLONE ACET 40 MG/ML VIAL ONE; +VENTOLIN HFA18 GM
[2017-10-25 07:15] VITALS: BP 105/62
== END | disposition home or self-care (01) ==
LOC: OR 05:13
PROVIDERS: ATTEND Physical Medicine & Rehabilitation Pain Medicine
DX: M47.26 Other spondylosis with radiculopathy, lumbar region (principal); M47.22 Other spondylosis with radiculopathy, cervical region; M54.81 Occipital neuralgia; G50.0 Trigeminal neuralgia; M70.62 Trochanteric bursitis, left hip; M70.61 Trochanteric bursitis, right hip; I10 Essential (primary) hypertension; I45.10 Unspecified right bundle-branch block; E11.9 Type 2 diabetes mellitus without complications; F41.9 Anxiety disorder, unspecified; F32.9 Major depressive disorder, single episode, unspecified; Z91.81 History of falling; Z88.2 Allergy status to sulfonamides; Z91.048 Other nonmedicinal substance allergy status; Z01.810 Encounter for preprocedural cardiovascular examination; Z79.82 Long term (current) use of aspirin; Z68.32 Body mass index [BMI] 32.0-32.9, adult; Z87.81 Personal history of (healed) traumatic fracture
CPT/HCPCS: 36415; 77003; 82948; 93005; J1100; J2001; J2250; Q9966

== ENCOUNTER → 2017-12-06 | Day surgery (SDC) | payer MEDICARE, BC ==
[~2017-12-06] MED LIST changes: -DEXAMETHASONE SOD PHOS 10 MG/1 ML VIAL ONE; +LIDOCAINE HCL 1% 30ML-PF VIAL ONE; +TRIAMCINOLONE ACET 40 MG/ML VIAL ONE
--- OUTSIDE RECORDS SUMMARY | 2017-12-06 05:17 | XMS REPORT | Clinical Summary ---
Author Author Alan [facility] Organization [facility] Address Unknown Phone Unavailable Care Team Providers Care Psychologist Personnel Name Role Phone Peña Vela MD PCP [...] 2 % 1 10/06/19 Active ointment 17 fluocinolone acetonide 0 01/11/20 Active oil 0.01 % drops 17 ipratropium (ATROVENT) 0 01/10/20 Active 0.03 % nasal spray 17 sucralfate (CARAFATE) 1 Take 1 tablet (1 g total) 120 tablet 0 04/07/19 04/07/19 Active gram tablet by mouth 4 (four) times a 18 19 day. ipratropium (ATROVENT) 42 0 05/08/19 Active mcg (0.06 %) nasal spray 18 esomeprazole (NexIUM) 40 Take 1 capsule (40 mg 90 capsule 3 05/09/19 Active MG capsule total) by mouth daily. 18 metFORMIN XR Take 1 tablet (750 mg 180 tablet 1 05/09/19 Active (GLUCOPHAGE-XR) 750 mg 24 total) by mouth 2 (two) 18 hr tablet times a day. valsartan (DIOVAN) 160 MG Take 320 mg by mouth Active tablet daily. aspirin (ECOTRIN) 81 MG Take 81 mg by mouth Active enteric coated tablet daily. NIFEdipine XL (PROCARDIA Take 60 mg by mouth Active XL) 60 MG 24 hr tablet daily. DULoxetine (CYMBALTA) 60 TAKE 1 CAPSULE BY MOUTH 90 capsule 1 09/04/19 Active MG capsule TWICE DAILY 18 rosuvastatin (CRESTOR) 10 TAKE 1 TABLET BY MOUTH 90 tablet 1 11/13/19 Active MG tablet ONCE DAILY 18 diclofenac (VOLTAREN) 1 % APPLY 2 GRAMS TO THE 4 Tube 11 12/05/19 Active gel AFFECTED AREA FOUR TIMES 18 DAILY ranitidine (ZANTAC) 300 Take 1 tablet (300 mg 90 tablet 1 05/16/19 01/10/20 Discontin MG tablet total) by mouth nightly. 17 17 ued cetirizine (ZyrTEC) 10 MG [...] 1 tablet (12.5 mg 90 tablet 1 11/08/19 01/10/20 Discontin (HYDRODIURIL) 12.5 MG total) by mouth daily. 17 17 ued tabletIndications: Essential hypertension amLODIPine (NORVASC) 2.5 Take 1 tablet (2.5 mg 90 tablet 1 11/08/19 01/10/20 Discontin mg tabletIndications: total) by mouth daily. 17 17 ued Essential hypertension DULoxetine (CYMBALTA) 60 Take 1 capsule (60 mg 90 capsule 1 11/08/19 03/02/19 Discontin MG capsule total) by mouth 2 (two) 17 18 ued times a day. VOLTAREN 1 % gel Apply topically 4 (four) 500 g 11 11/08/19 12/04/19 Discontin times a day. 17 18 ued celecoxib (CeleBREX) 200 Take 1 capsule (200 [...] tablet (25 mg 30 tablet 0 01/10/20 01/18/20 Discontin (HYDRODIURIL) 25 MG total) by mouth daily. 17 17 ued tablet chlorthalidone (HYGROTEN) Take 1 tablet (25 mg 90 tablet 0 01/18/20 04/02/19 Discontin 25 MG tablet total) by mouth daily. 17 18 ued amLODIPine (NORVASC) 5 mg TAKE ONE TABLET BY MOUTH 90 tablet 1 02/19/19 05/09/19 Discontin tabletIndications: ONCE DAILY 18 18 ued Essential hypertension meloxicam (MOBIC) 7.5 mg Take 1 tablet (7.5 mg 90 tablet 0 02/23/19 03/16/19 Discontin tablet total) by mouth daily. 18 18 ued DULoxetine (CYMBALTA) 60 TAKE ONE CAPSULE BY MOUTH 90 capsule 1 03/04/19 05/09/19 Discontin MG capsule TWICE DAILY 18 18 ued meloxicam (MOBIC) 15 mg Take 1 tablet (15 mg 90 tablet 1 03/16/19 05/09/19 Discontin tablet total) by mouth daily for 18 18 ued 90 days. chlorthalidone (HYGROTEN) TAKE ONE TABLET BY MOUTH 90 tablet 0 04/02/19 05/09/19 Discontin 25 MG tablet ONCE DAILY 18 18 ued amLODIPine (NORVASC) 5 mg Take 1 tablet (5 mg 90 tablet 1 05/09/19 08/01/19 Discontin tabletIndications: total) by mouth daily. 18 18 ued Essential hypertension DULoxetine (CYMBALTA) 60 Take 1 capsule (60 mg 90 capsule 1 05/09/19 09/02/19 Discontin MG capsule total) by mouth 2 (two) 18 18 ued times a day. lisinopril Take 1 tablet (40 mg 90 tablet 1 05/09/19 08/01/19 Discontin (PRINIVIL,ZESTRIL) 40 mg total) by mouth daily. 18 18 ued tablet meloxicam (MOBIC) 15 mg Take 1 tablet (15 mg 90 tablet 1 05/09/19 08/07/19 tablet total) by mouth daily for 18 18 90 days. rosuvastatin (CRESTOR) 10 Take 1 tablet (10 mg 90 tablet 1 05/09/19 11/13/19 Discontin MG tablet total) by mouth daily. 18 18 ued Active Problems Problem Noted Date Pneumococcal vaccination administered at current visit 05/10/2017 Hyponatremia 05/08/2017 BMI 30.0-30.9,adult 03/18/2017 Influenza vaccination administered at current visit 11/07/2016 Arthritis 11/07/2016 Overview: cont prn tx Mixed hyperlipidemia 05/14/2012 Recurrent major depressive episodes, in full remission (HCC) 12/12/2010 Diabetes mellitus (HCC) 10/25/2010 Essential hypertension 10/25/2010 Encounters Date Type Specialty Care Team Description 12/03/2017 Refill Family Medicine Peña Vela MD 11/12/2017 Refill Family Medicine Peña Vela MD 09/01/2017 Refill Family Medicine Peña Vela MD 07/31/2017 Hospital Procedural Cardiology Hussain Bird MD Abnormal adenosine Encounter sestamibi study 07/31/2017 Procedure Pass Procedural Cardiology 07/31/2017 Surgery Procedural Cardiology Hussain Bird MD Cv left heart cath [13518 (CPT)] 06/22/2017 Telephone Family Medicine Alicia Biggs, MA 06/21/2017 Orders Only Family Medicine Haley Sylvester NP Perineural cysts (Primary Dx) 06/21/2017 Documentation Family Medicine Haley Sylvester NP 06/20/2017 Telephone [facility] Medicine Alicia Biggs, MA 06/18/2017 Orders Only Family Medicine Haley Sylvester NP 06/18/2017 Orders Only Family Medicine Alicia Biggs MA 06/15/2017 [facility] Radiology Peña Vela MD Abnormal CT scan, neck Encounter 06/12/2017 Procedure Pass Radiology 06/12/2017 Orders Only [facility] Medicine Alicia Biggs MA Abnormal CT scan, neck (Primary Dx) 06/12/2017 Orders Only [facility] Medicine Haley Sylvester NP Abnormal CT scan, neck (Primary Dx) 06/08/2017 [facility] Radiology Haley Sylvester NP Fall, initial encounter; Encounter Concussion without loss of consciousness, initial encounter; Acute post-traumatic headache, not intractable; Neck pain 06/08/2017 [facility] Radiology Peña Vela MD Fall, initial encounter; Encounter Concussion without loss of consciousness, initial encounter; Acute post-traumatic headache, not intractable; Neck pain 06/06/2017 Office Visit [facility] Haley Kent NP Fall, initial encounter (Primary Dx); Concussion without loss of consciousness, initial encounter; Acute post-traumatic headache, not intractable; Neck pain 05/16/2017 Clinical [facility] Haley Kent NP Essential hypertension Support (Primary Dx); Tachycardia 05/08/2017 Office Visit Peña Alaniz MD Mixed hyperlipidemia (Primary Dx); Recurrent major depressive episodes, in full remission; Type 2 diabetes mellitus without complication, without long-term current use of insulin; Essential hypertension; Hyponatremia; Essential hypertension; Pneumococcal vaccination administered at current visit 04/06/2017 Office Visit Peña Alaniz MD Costochondritis (Primary Dx); Closed fracture of anatomical neck of left humerus, sequela 04/02/2017 Refill Family Medicine Haley Sylvester, YAMEL 03/16/2017 Clinical [facility] Medicine Peña Vela MD Blood pressure check Support (Primary Dx); BMI 30.0-30.9,adult 03/02/2017 Refill [facility] Medicine Peña Vela MD 02/23/2017 Office Visit [facility] Medicine Haley Sylvester NP Trigeminal neuralgia (Primary Dx) 02/22/2017 Telephone [facility] Merced Sumner MA 02/17/2017 Refill [facility] Peña Vela MD Essential hypertension 01/26/2017 Clinical [facility] Peña Vela MD Blood pressure check Support (Primary Dx) 01/17/2017 Office Visit [facility] Haley Sylvester NP Essential hypertension 01/17/2017 Telephone [facility] Peña Vela MD 01/09/2017 Office Visit [facility] Haley Sylvester NP Essential hypertension after 12/05/2016 Immunizations Name Dates Previously Given Next Due [...] Sign Reading Time Taken Blood Pressure 130/80 07/31/2017 5:16 PM CDT Pulse 66 07/31/2017 5:16 PM CDT Temperature 36.7 C (98 F) 06/06/2017 3:50 PM CDT Respiratory Rate 22 07/31/2017 5:16 PM CDT Oxygen Saturation 91% 07/31/2017 5:16 PM CDT Inhaled Oxygen - - Concentration Weight 76.3 kg (168 lb 2 oz) 07/31/2017 10:18 AM CDT Height 158.8 cm (5' 2.5") 07/31/2017 10:18 AM CDT Body Mass Index 30.26 07/31/2017 10:18 AM CDT Plan of Treatment Health Maintenance Due Date Last Done Comments BREAST CANCER SCREENING 1997 SHINGRIX VACCINE (#1) 1997 ZOSTER VACCINE 2007 DIABETIC RETINAL EYE EXAM 05/09/2017 05/09/2016 INFLUENZA VACCINE 09/05/2017 11/07/2016, 11/18/2015, 11/24/2014, Additional history exists URINE MICROALBUMIN 05/01/2018 05/01/2017, 05/08/2016, 11/08/2015, Additional history exists DIABETIC FOOT EXAM 05/08/2018 05/08/2017, 05/08/2017 COLON CANCER SCREENING 01/05/2021 01/05/2011 PNEUMOCOCCAL-13 Completed 05/26/2014 PNEUMOCOCCAL Completed 05/08/2017, 05/08/2017 POLYSACCHARIDE VACCINE AGE 65 AND OVER Procedures Procedure Name Priority Date/Time Associated Diagnosis Comments ECG PRE/POST OP Routine 07/31/2017 Results for this 2:12 PM CDT procedure are in the results section. CV LEFT HEART CATH Routine 07/31/2017 Abnormal adenosine 12:10 PM CDT sestamibi study ZZESTIMATED GFR STAT 07/31/2017 Results for this 10:20 AM CDT procedure are in the results section. PROTHROMBIN TIME WITH INR STAT 07/31/2017 Results for this 10:20 AM CDT procedure are in the results section. BASIC METABOLIC PANEL STAT 07/31/2017 Results for this 10:20 AM CDT procedure are in the results section. MRI CERVICAL SPINE W WO Routine 06/15/[address] scan, neck Results for this CONTRAST 1:39 PM CDT procedure are in the results section. POC CREATININE Routine 06/15/2017 Results for this 12:45 PM CDT procedure are in the results section. CT CERVICAL SPINE WO Routine 06/08/2017 Fall, initial encounter Results for this CONTRAST 2:20 PM CDT Concussion without loss procedure are in the of consciousness, initial results section. encounter Acute post-traumatic headache, not intractable Neck pain CT HEAD WO CONTRAST Routine 06/08/2017 Fall, initial encounter Results for this 2:20 PM CDT Concussion without loss procedure are in the of consciousness, initial results section. encounter Acute post-traumatic headache, not intractable Neck pain ECG 12-LEAD Routine 05/16/2017 Tachycardia Results for this 1:42 PM CDT procedure are in the results section. URINALYSIS, AUTOMATED Routine 05/01/2017 Results for this WITH MICROSCOPY 8:13 AM CDT procedure are in the results section. HEPATIC FUNCTION PANEL Routine 05/01/2017 Results for this 8:13 AM CDT procedure are in the results section. CBC WITH PLATELET AND Routine 05/01/2017 Recurrent major Results for this DIFFERENTIAL 8:13 AM CDT depressive episodes, in procedure are in the full remission results section. HEMOGLOBIN A1C Routine 05/01/2017 Type 2 diabetes mellitus Results for this 8:13 AM CDT without complication, procedure are in the without long-term current results section. use of insulin MICROALBUMIN / CREATININE Routine 05/01/2017 Type 2 diabetes mellitus Results for this URINE RATIO 8:13 AM CDT without complication, procedure are in the without long-term current results section. use of insulin BASIC METABOLIC PANEL Routine 05/01/2017 Essential hypertension Results for this 8:13 AM CDT procedure are in the results section. after 12/05/2016 Results * ECG Pre/Post Op (07/31/2017 2:12 PM) Ventricular rate 74 [facility] Atrial rate 74 [facility] PA interval 172 [facility] QRSD interval 138 [facility] QT interval 432 [facility] QTC interval 479 [facility] P axis 1 58 [facility] QRS axis 1 -52 [facility] T wave axis 41 [facility] EKG impression Normal sinus rhythm with sinus [facility] arrhythmia-Right bundle branch block-Left anterior fascicular block-^^^ Bifascicular block ^^^-Abnormal ECG-In automated comparison with ECG of 16-MAY-2017 13:42,-No significant change was found- Performing Organization Address City/[facility]/Zipcode Phone Number [facility] MUSE [address] [place] [address] * Cv cath lab manager procedure (07/31/2017 12:10 PM) Narrative Performed At Performing Organization Address City/[facility]/Zipcode Phone Number [facility] [address] [place] [address] * Estimated GFR (07/31/2017 10:20 AM) GFR Non Af Amer 62 mL/min/1.73 m2 [facility] PATHOLOGY AND [facility] GFR Af Amer 75 mL/min/1.73 m2 [facility] DEPARTMENT OF Comment: PATHOLOGY AND Chronic kidney disease: <60 GENOMIC MEDICINE mL/min/1.73m2 Kidney failure: <15 mL/min/1.73m2 The estimated GFR is calculated from the IDMS-traceable Modification of Diet in Renal Disease Equation. The accuracy of the calculation is poor when the creatinine is normal. Calculated values >90 mL/min/1.73m2 are not reported. This equation has not been validated in children (<18 years), women, the elderly (>70 years), or ethnic groups other than Caucasians and Americans. Specimen Plasma specimen Performing Organization Address City/[facility]/Zipcode Phone Number [address] [place], [place] [phone] [place] [address] AND [facility] * Prothrombin time with INR (07/31/2017 10:20 AM) Prothrombin time 12.7 12.0 - 15.0 sec [facility] PATHOLOGY AND [facility] INR 0.94 0.92 - 1.12 [facility] DEPARTMENT OF Comment: PATHOLOGY AND For patients on anticoagulant [facility]ICINE therapy, reference ranges below: Indication: INR Value Treatment of Venous Thrombosis, 2.0-3.0 pulmonary emboli, or prophylaxis of a venous thrombosis, or systemic emboli. High dose, high risk patients 3.0-4.5 with mechanical valves. NOTE:INR values over 3.0 are sometimes associated with gastrointestinal hemorrhage, especially values over 4.0. Specimen Blood Performing Organization Address City/[facility]/Zipcode Phone Number [address] [place] [place] [address] PATHOLOGY [facility] * Basic metabolic panel (07/31/2017 10:20 AM) Only the most recent of 2 results within the time period is included. Sodium 136 135 - 150 mEq/L [facility] DEPARTMENT OF PATHOLOGY AND [facility]INE Potassium 4.6 3.5 - 5.0 mEq/L [facility] DEPARTMENT OF PATHOLOGY AND [facility]ICINE Chloride 96 (L) 98 - 112 mEq/L [facility] DEPARTMENT OF PATHOLOGY AND [facility]INE CO2 28 24 - 31 mmol/L [facility] DEPARTMENT OF PATHOLOGY AND [facility]ICINE Anion gap 12@ANIO 7 - 15 mEq/L [facility] DEPARTMENT OF PATHOLOGY AND [facility] BUN 13 7 - 18 mg/dL [facility] DEPARTMENT OF PATHOLOGY AND GENOMIC MEDICINE Creatinine 0.90 0.50 - 0.90 mg/dL [facility] DEPARTMENT OF PATHOLOGY AND GENOMIC MEDICINE Glucose 139 (H) 65 - 100 mg/dL [facility] DEPARTMENT OF PATHOLOGY AND GENOMIC MEDICINE Calcium 10.1 8.8 - 10.2 mg/dL [facility] DEPARTMENT OF PATHOLOGY AND GENOMIC MEDICINE Specimen Plasma specimen Performing Organization Address City/State/Zipcode Phone Number [facility] DEPARTMENT OF [address] [place] [address] PATHOLOGY AND GENOMIC MEDICINE * MRI Cervical Spine W Wo Contrast (06/15/2017 1:39 PM) Narrative Performed At EXAMINATION:MRI CERVICAL SPINE W WO CONTRAST [facility] CLINICAL HISTORY:R93.8 Abnormal findings on diagnostic imaging [...] and T1-T2 perineural sleeve cysts, incidental findings. [facility]-[id number] Procedure Note Interface, Radiology Results Incoming - 06/15/2017 4:08 [...] and T1-T2 perineural sleeve cysts, incidental findings. [facility]-[id number] Performing Organization Address City/State/Zipcode Phone Number [facility] [address] [place] [address] * POC creatinine (06/15/2017 12:45 PM) POC creatinine 0.8 0.5 - 0.9 mg/dl [facility] DEPARTMENT OF PATHOLOGY AND GENOMIC MEDICINE Specimen Blood Performing Organization Address City/[facility]/Zipcode Phone Number [facility] DEPARTMENT OF [address] [place] [address] PATHOLOGY AND GENOMIC MEDICINE * CT Cervical Spine Wo Contrast (06/08/2017 2:20 PM) Narrative Performed At EXAMINATION: CT CERVICAL SPINE WO CONTRAST [facility] CLINICAL HISTORY: W19.XXXA Unspecified fallinitial encounter, S06.0X0A Concussion without loss of consciousnessinitial encounter, fall neck painheadache COMPARISON:None TECHNIQUE: Axial noncontrast enhanced images of [...] posterior disc disease or spinal canal stenosis. Left-sided uncovertebral facet hypertrophy injury to mild left [...] Clarification could be obtained with contrast-enhanced MRI. [id number] Procedure Note Hm Interface, Radiology Results Incoming - 06/08/2017 6:38 PM CDT EXAMINATION: CT CERVICAL [...] Clarification could be obtained with contrast-enhanced MRI. [id number] Performing Organization Address City/State/Zipcode Phone Number [facility] [address] [place] [address] * CT Head Wo Contrast (06/08/2017 2:20 PM) Narrative Performed At EXAMINATION: CT HEAD WO CONTRAST [facility] COMPARISON: None CLINICAL HISTORY W19.XXXA Unspecified fallinitial [...] matter. No acute hemorrhage or hyperdense vessels. [facility]-[id number] Procedure Note Hm Interface, Radiology Results Incoming [...] matter. No acute hemorrhage or hyperdense vessels. [facility]-[id number] Performing Organization Address [facility] Phone Number [facility] [address] [place] [address] * ECG 12 lead (05/16/2017 1:42 PM) Ventricular rate 93 [facility]USE Atrial rate 93 [facility] PA interval 164 [facility] QRSD interval 128 [facility] QT interval 386 HM MUSE QTC interval 479 [facility] P axis 1 59 [facility] QRS axis 1 -56 [facility] T wave axis 30 [facility] EKG impression Normal sinus rhythm-Right [facility] MUSE bundle branch block-Left anterior fascicular block-^^^ Bifascicular block ^^^-Abnormal ECG-In automated comparison with ECG of 29-OCT-2015 14:36,-No significant change was found- Performing Organization Address [facility] Phone Number [employer] [address] [place] [address] * Microalbumin / creatinine urine ratio (05/01/2017 8:13 AM) Creatinine, urine, random 36 20 - 320 mg/dL [facility] AMERY Microalbumin, urine <0.2 See Note: mg/dL [facility] Comment: AMERY Reference Range: Reference Range Not established Microalbumin/creatinine NOTE <30 mcg/mg creat [facility] ratio Comment: AMERY The microalbumin value is less than 0.2 mg/dL therefore we are unable to calculate excretion and/or creatinine ratio. The ADA defines abnormalities in albumin excretion as follows: Category Result (mcg/mg creatinine) Normal <30 Microalbuminuria 30-299 Clinical albuminuria > VN=413 The ADA recommends that at least two of three specimens collected within a 3-6 month period be abnormal before considering a patient to be within a diagnostic category. Specimen Urine Narrative Performed At FASTING:YES [facility] FASTING: YES Other Results Text Performing Organization Information: Site ID: [id number] Name: [facility] Address: [address] [place] [id number] Director: Vannessa Vences MD Performing Organization Address City/State/Zipcode Phone Number [email or web address] [address] [address] * Urinalysis, automated with microscopy (05/01/2017 8:13 AM) Color, UA YELLOW YELLOW [facility] AMERY Appearance CLEAR CLEAR [facility] AMERY Specific gravity, urine < OR=1.005 1.001 - 1.035 [facility] AMERY pH, urine 6.5 5.0 - 8.0 [facility] AMERY Glucose, urine NEGATIVE NEGATIVE [facility] AMERY Bilirubin, UA NEGATIVE NEGATIVE [facility] AMERY Ketones, UA NEGATIVE NEGATIVE [facility] AMERY Occult blood, urine NEGATIVE NEGATIVE [facility] AMERY Protein, UA NEGATIVE NEGATIVE [facility] AMERY Nitrite, UA NEGATIVE NEGATIVE [facility] AMERY Leukocyte esterase, UA NEGATIVE NEGATIVE [facility] AMERY WBC, UA NONE SEEN < OR=5 /HPF [facility] AMERY RBC, UA NONE SEEN < OR=2 /HPF [facility] AMERY Squamous epithelial NONE SEEN < OR=5 /HPF [facility] cells, UA AMERY Bacteria, UA NONE SEEN NONE SEEN /HPF [facility] AMERY Hyaline casts, UA NONE SEEN NONE SEEN /LPF [facility] AMERY Narrative Performed At FASTING:YES [facility] FASTING: YES Other Results Text Performing Organization Information: Site ID: [id number] Name: [facility] Address: [address] [place] [id number] Director: Vannessa Vences MD Performing Organization Address [facility] Corporation[facility] Phone Number [email or web address] [address] [address] * CBC with platelet and differential (05/01/2017 8:13 AM) WBC 11.0 (H) 3.8 - 10.8 Thousand/uL [facility] AMERY RBC 4.44 3.80 - 5.10 Million/uL [facility] AMERY HGB 12.4 11.7 - 15.5 g/dL [facility] AMERY HCT 37.7 35.0 - 45.0 % [facility] AMERY MCV 84.9 80.0 - 100.0 fL [facility] AMERY MCH 27.9 27.0 - 33.0 pg [facility] AMERY MCHC 32.9 32.0 - 36.0 g/dL [facility] AMERY RDW 12.4 11.0 - 15.0 % [facility] AMERY Platelet count 483 (H) 140 - 400 Thousand/uL [facility] AMERY MPV 8.6 7.5 - 12.5 fL [facility] AMERY Neutrophils, absolute 6,534 1,500 - 7,800 cells/uL [facility] AMERY Lymphocytes, absolute 3,234 850 - 3,900 cells/uL [facility] AMERY Monocytes, absolute 1,100 (H) 200 - 950 cells/uL [facility] AMERY Eosinophils, absolute 66 15 - 500 cells/uL [facility] AMERY Basophils, absolute 66 0 - 200 cells/uL [facility] AMERY Neutrophils 59.4 % [facility] AMERY Lymphocytes 29.4 % [facility] AMERY Monocytes 10.0 % [facility] AMERY Eosinophils 0.6 % [facility] AMERY Basophils + RC 0.6 % [facility] AMERY Specimen Blood Narrative Performed At FASTING:YES [facility] FASTING: YES Other Results Text Performing Organization Information: Site ID: [id number] Name: [facility] Address: [address] [place] [id number] Director: Vannessa Vences MD Performing Organization Address [facility]/Zipcode Phone Number [email or web address] [address] [address] * Hemoglobin A1c (05/01/2017 8:13 AM) Hemoglobin A1C 6.6 (H) <5.7 % of total Hgb [facility] Comment: AMERY For someone without known diabetes, a hemoglobin [...] for diagnosis of diabetes for children. Specimen Blood Narrative Performed At FASTING:YES [facility] FASTING: YES Other Results Text Performing Organization Information: Site ID: [id number] Name: [facility] Address: [address] [place] [phone] Director: Vannessa Vences MD Performing Organization Address City/State/[facility] Corporationcode Phone Number [email or web address] [address] [address] * Hepatic function panel (05/01/2017 8:13 AM) Protein 6.9 6.1 - 8.1 g/dL [facility] Albumin, S 4.4 3.6 - 5.1 g/dL [facility] Globulin, total 2.5 1.9 - 3.7 g/dL (calc) [facility] Albumin/globulin ratio 1.8 1.0 - 2.5 (calc) [facility] Total bilirubin 0.6 0.2 - 1.2 mg/dL [facility] Bilirubin direct 0.2 < OR=0.2 mg/dL [facility] AM[facility] Bilirubin, indirect 0.4 0.2 - 1.2 mg/dL (calc) [facility] Alkaline phosphatase 57 33 - 130 U/L [facility] AST 11 10 - 35 U/L [facility] ALT 12 6 - 29 U/L [facility] AMERY Narrative Performed At FASTING:YES [facility] FASTING: YES Other Results Text Performing Organization Information: Site ID: [id number] Name: [facility] Address: [address] [place] [phone] Director: Vannessa Vences MD Performing Organization Address City/State/[facility] Corporation[facility] Phone Number [email or web address] [address] [address] after 12/05/2016 Insurance Payer Benefit Subscriber ID Type Phone Address Plan / Group MEDICARE MEDICARE xxxxxxxxxx Medicare [place] PART A [place] B BCBS BCBS xxxxxxxxxxxx Indemnity [place] [address]
[2017-12-06 07:15] VITALS: BP 115/69
== END | disposition home or self-care (01) ==
LOC: OR 05:14
PROVIDERS: ATTEND Physical Medicine & Rehabilitation Pain Medicine
DX: M47.26 Other spondylosis with radiculopathy, lumbar region (principal); M47.896 Other spondylosis, lumbar region; M50.122 Cervical disc disorder at C5-C6 level with radiculopathy; M54.81 Occipital neuralgia; G50.0 Trigeminal neuralgia; M70.62 Trochanteric bursitis, left hip; M70.61 Trochanteric bursitis, right hip; I10 Essential (primary) hypertension; S42.302D Unspecified fracture of shaft of humerus, left arm, subsequent encounter for fracture with routine healing; E66.9 Obesity, unspecified; Z68.32 Body mass index [BMI] 32.0-32.9, adult; I25.10 Atherosclerotic heart disease of native coronary artery without angina pectoris; F32.9 Major depressive disorder, single episode, unspecified; Z88.2 Allergy status to sulfonamides; Z91.048 Other nonmedicinal substance allergy status
CPT/HCPCS: 36415; 64493; 64494; 64495; 77003; 82948; J2001 ×2; J2250; J2704; J3301; Q9967

== ENCOUNTER → 2018-01-03 | Day surgery (SDC) | payer MEDICARE, BC ==
[~2018-01-03] MED LIST changes: +BUPROPION HCL100 MG PO; +DEXAMETHASONE SOD PHOS 10 MG/1 ML VIAL ONE; +METOPROLOL SUCC25 MG PO; +NEXIUM40 MG PO; -TRIAMCINOLONE ACET 40 MG/ML VIAL ONE
--- OUTSIDE RECORDS SUMMARY | 2018-01-03 06:14 | XMS REPORT | Clinical Summary ---
Author Author [facility] Organization [place] [facility] Address Unknown Phone Unavailable Care Team Providers Care Business Objects Consultant Name Role Phone Peña Vela MD PCP Allergies Comments Active Allergy Reactions Severity Noted Date Sulfa (Sulfonamide Rash High 05/05/2015 Antibiotics) Tramadol Rash High 05/05/2015 Medications End Date Status Medication Sig Dispensed Refills Start Date Active HYDROcodone-acetaminophen Take 1 tablet 0 (NORCO 10-325) 10-325 mg by mouth 4 6 per tablet (four) times a day. Active rOPINIRole (REQUIP) 1 MG Take 1 tablet 1 tablet by mouth 6 daily. Active multivitamin (THERAGRAN) Take 1 tablet 0 tablet by mouth daily. Active rOPINIRole (REQUIP) 0.25 as needed. 1 MG tablet 7 Active ERGOCALCIFEROL, VITAMIN Take by 0 D2, (VITAMIN D2 ORAL) mouth. 5,000 Active POTASSIUM ACETATE MISC 599 mg. 0 Active LYRICA 75 mg capsule Take 1 1 capsule by 7 mouth 2 (two) times a day. Active tiZANidine (ZANAFLEX) 4 Take 1 tablet 0 MG tablet by mouth 2 7 (two) times a day. Active nystatin-triamcinolone 1 (MYCOLOG) 100,000-0.1 7 unit/gram-% ointment Active mupirocin (BACTROBAN) 2 % 1 ointment 7 Active fluocinolone acetonide 0 oil 0.01 % drops 7 Active ipratropium (ATROVENT) 0 0.03 % nasal spray 7 04/06/2018 Active sucralfate (CARAFATE) 1 Take 1 tablet 120 tablet 0 gram tablet (1 g total) 8 by mouth 4 (four) times a day. Active ipratropium (ATROVENT) 42 0 mcg (0.06 %) nasal spray 8 Active esomeprazole (NexIUM) 40 Take 1 90 capsule 3 MG capsule capsule (40 8 mg total) by mouth daily. Active metFORMIN XR Take 1 tablet 180 tablet 1 (GLUCOPHAGE-XR) 750 mg 24 (750 mg 8 hr tablet total) by mouth 2 (two) times a day. Active valsartan (DIOVAN) 160 MG Take 320 mg 0 tablet by mouth daily. Active aspirin (ECOTRIN) 81 MG Take 81 mg by 0 enteric coated tablet mouth daily. Active NIFEdipine XL (PROCARDIA Take 60 mg by 0 XL) 60 MG 24 hr tablet mouth daily. Active DULoxetine (CYMBALTA) 60 TAKE 1 90 capsule 1 MG capsule CAPSULE BY 8 MOUTH TWICE DAILY Active rosuvastatin (CRESTOR) 10 TAKE 1 TABLET 90 tablet 1 MG tablet BY MOUTH ONCE 8 DAILY Active diclofenac (VOLTAREN) 1 % APPLY 2 GRAMS 4 Tube 11 gel TO THE 8 AFFECTED AREA FOUR TIMES DAILY 01/09/2017 Discontinued ranitidine (ZANTAC) 300 Take 1 tablet 90 tablet 1 MG tablet (300 mg 7 total) by mouth nightly. 03/16/2017 Discontinued cetirizine (ZyrTEC) 10 MG Take 10 mg by 0 tablet mouth daily. 05/08/2017 Discontinued esomeprazole (NexIUM) 40 Take 1 0 MG capsule capsule by 7 mouth daily. 05/08/2017 Discontinued rosuvastatin (CRESTOR) 10 Take 1 tablet 90 tablet 1 MG tablet (10 mg total) 7 by mouth daily. 05/08/2017 Discontinued metFORMIN XR Take 1 tablet 180 tablet 1 (GLUCOPHAGE-XR) 750 mg 24 (750 mg 7 hr tablet total) by mouth 2 (two) times a day. 05/08/2017 Discontinued lisinopril Take 1 tablet 90 tablet 1 (PRINIVIL,ZESTRIL) 40 mg (40 mg total) 7 tablet by mouth daily. 01/09/2017 Discontinued hydroCHLOROthiazide Take 1 tablet 90 tablet 1 (HYDRODIURIL) 12.5 MG (12.5 mg 7 tabletIndications: total) by Essential hypertension mouth daily. 01/09/2017 Discontinued amLODIPine (NORVASC) 2.5 Take 1 tablet 90 tablet 1 mg tabletIndications: (2.5 mg 7 Essential hypertension total) by mouth daily. 03/02/2017 Discontinued DULoxetine (CYMBALTA) 60 Take 1 90 capsule 1 MG capsule capsule (60 7 mg total) by mouth 2 (two) times a day. 12/03/2017 Discontinued VOLTAREN 1 % gel Apply 500 g 11 topically 4 7 (four) times a day. 02/23/2017 Discontinued celecoxib (CeleBREX) 200 2 MG capsule 7 02/23/2017 Discontinued QUEtiapine (SEROquel) 25 0 MG tablet 7 02/23/2017 Discontinued amLODIPine (NORVASC) 5 mg Take 1 tablet 30 tablet 0 tablet (5 mg total) 7 by mouth daily. 01/17/2017 Discontinued hydroCHLOROthiazide Take 1 tablet 30 tablet 0 (HYDRODIURIL) 25 MG (25 mg total) 7 tablet by mouth daily. 04/02/2017 Discontinued chlorthalidone (HYGROTEN) Take 1 tablet 90 tablet 0 25 MG tablet (25 mg total) 7 by mouth daily. 05/08/2017 Discontinued amLODIPine (NORVASC) 5 mg TAKE ONE 90 tablet 1 tabletIndications: TABLET BY 8 Essential hypertension MOUTH ONCE DAILY 03/16/2017 Discontinued meloxicam (MOBIC) 7.5 mg Take 1 tablet 90 tablet 0 tablet (7.5 mg 8 total) by mouth daily. 05/08/2017 Discontinued DULoxetine (CYMBALTA) 60 TAKE ONE 90 capsule 1 MG capsule CAPSULE BY 8 MOUTH TWICE DAILY 05/08/2017 Discontinued meloxicam (MOBIC) 15 mg Take 1 tablet 90 tablet 1 tablet (15 mg total) 8 by mouth daily for 90 days. 05/08/2017 Discontinued chlorthalidone (HYGROTEN) TAKE ONE 90 tablet 0 25 MG tablet TABLET BY 8 MOUTH ONCE DAILY 07/31/2017 Discontinued amLODIPine (NORVASC) 5 mg Take 1 tablet 90 tablet 1 tabletIndications: (5 mg total) 8 Essential hypertension by mouth daily. 09/01/2017 Discontinued DULoxetine (CYMBALTA) 60 Take 1 90 capsule 1 MG capsule capsule (60 8 mg total) by mouth 2 (two) times a day. 07/31/2017 Discontinued lisinopril Take 1 tablet 90 tablet 1 (PRINIVIL,ZESTRIL) 40 mg (40 mg total) 8 tablet by mouth daily. 08/06/2017 meloxicam (MOBIC) 15 mg Take 1 tablet 90 tablet 1 tablet (15 mg total) 8 by mouth daily for 90 days. 11/12/2017 Discontinued rosuvastatin (CRESTOR) 10 Take 1 tablet 90 tablet 1 MG tablet (10 mg total) 8 by mouth daily. Active Problems Problem Noted Date Pneumococcal vaccination administered at current visit 05/10/2017 Hyponatremia 05/08/2017 BMI 30.0-30.9,adult 03/18/2017 Influenza vaccination administered at current visit 11/07/2016 Arthritis 11/07/2016 Overview: cont prn tx Mixed hyperlipidemia 05/14/2012 Recurrent major depressive episodes, in full remission 12/12/2010 Diabetes mellitus 10/25/2010 Essential hypertension 10/25/2010 Encounters Care Team Description Date Type Specialty Peña Vela MD 12/03/2017 Refill Family Medicine Peña Vela MD 11/12/2017 Refill Family Medicine Peña Vela MD 09/01/2017 Refill Family Medicine Hussain Bird MD Cv left heart cath [25613 (CPT)] 07/31/2017 Surgery Procedural Cardiology Hussain Bird MD Abnormal adenosine sestamibi study 07/31/2017 Hospital Procedural Cardiology Encounter Alicia Biggs MA 06/22/2017 Telephone Family Medicine Haley Sylvester NP Perineural cysts (Primary Dx) 06/21/2017 Orders Only Family Medicine Haley Sylvester NP 06/21/2017 Documentation Family Medicine Alicia Biggs MA 06/20/2017 Telephone Family Medicine Haley Sylvester NP 06/18/2017 Orders Only Family Medicine Alicia Biggs MA 06/18/2017 Orders Only Family Medicine Peña Vela MD Abnormal CT scan, neck 06/15/2017 Hospital Radiology Encounter Alicia Biggs MA Abnormal CT scan, neck (Primary Dx) 06/12/2017 Orders Only Family Medicine Haley Sylvester NP Abnormal CT scan, neck (Primary Dx) 06/12/2017 Orders Only Family Medicine Haley Sylvester NP Fall, initial encounter; Concussion without loss of consciousness, initial encounter; Acute post-traumatic headache, not intractable; Neck pain 06/08/2017 Hospital Radiology Encounter Peña Vela MD Fall, initial encounter; Concussion without loss of consciousness, initial encounter; Acute post-traumatic headache, not intractable; Neck pain 06/08/2017 Hospital Radiology Encounter Haley Sylvester NP Fall, initial encounter (Primary Dx); Concussion without loss of consciousness, initial encounter; Acute post-traumatic headache, not intractable; Neck pain 06/06/2017 Office Visit Family Medicine Haley Sylvester NP Essential hypertension (Primary Dx); Tachycardia 05/16/2017 Clinical [facility] Support Peña Vela MD Mixed hyperlipidemia (Primary Dx); Recurrent major depressive episodes, in full remission; Type 2 diabetes mellitus without complication, without long-term current use of insulin; Essential hypertension; Hyponatremia; Essential hypertension; Pneumococcal vaccination administered at current visit 05/08/2017 Office Visit Family Peña Gray MD Costochondritis (Primary Dx); Closed fracture of anatomical neck of left humerus, sequela 04/06/2017 Office Visit Family Haley Kent NP 04/02/2017 Refill Family Medicine Peña Vela MD Blood pressure check (Primary Dx); BMI 30.0-30.9,adult 03/16/2017 Clinical Family Medicine Peña Anne MD 03/02/2017 Refill Family Medicine Haley Sylvester NP Trigeminal neuralgia (Primary Dx) 02/23/2017 Office Visit Family Medicine Merced Sumner MA 02/22/2017 Telephone [facility] Peña Gray MD Essential hypertension 02/17/2017 Refill Family Medicine Peña Vela MD Blood pressure check (Primary Dx) 01/26/2017 Clinical Family Medicine Support Haley Sylvester NP Essential hypertension 01/17/2017 Office Visit Family Medicine Peña Vela MD 01/17/2017 Telephone Family Medicine Haley Sylvester NP Essential hypertension 01/09/2017 Office Visit Family Medicine after 01/02/2017 Immunizations Name Dates Previously Given Next Due DTaP 09/11/2014 FLUZONE HIGH-DOSE PF 11/07/2016, 11/18/2015 Influenza Trivalent 11/24/2014, 11/24/2012, 11/16/2011 Pneumococcal Conjugate 05/26/2014 13-Valent Pneumococcal 05/08/2017 Polysaccharide Family History Medical History Relation Name Comments Alzheimer's disease Father Arthritis Mother Heart disease Mother Relation Name Status Comments Father Mother Social History Date Tobacco Use Types Packs/Day Years Used Quit: 2001 Former Smoker Smokeless Tobacco: Never Used Alcohol Use Drinks/Week oz/Week Comments No Sex Assigned at Date Recorded Not on file Industry Job Start Date Occupation Not on file Not on file Not on file Travel End Travel History Travel Start No recent travel history available. Last Filed Vital Signs Time Taken Vital Sign Reading 07/31/2017 5:16 PM CDT Blood Pressure 130/80 07/31/2017 5:16 PM CDT Pulse 66 06/06/2017 3:50 PM CDT Temperature 36.7 C (98 F) 07/31/2017 5:16 PM CDT Respiratory Rate 22 07/31/2017 5:16 PM CDT Oxygen Saturation 91% - Inhaled Oxygen - Concentration 07/31/2017 10:18 AM CDT Weight 76.3 kg (168 lb 2 oz) 07/31/2017 10:18 AM CDT Height 158.8 cm (5' 2.5") 07/31/2017 10:18 AM CDT Body Mass Index 30.26 Plan of Treatment Health Maintenance Due Date Last Done Comments BREAST CANCER SCREENING 1997 SHINGRIX VACCINE (1 of 2) 1997 ZOSTER VACCINE 2007 DIABETIC RETINAL EYE EXAM 05/09/2017 05/09/2016 INFLUENZA VACCINE 09/05/2017 11/07/2016, 11/18/2015, 11/24/2014, Additional history exists URINE MICROALBUMIN 05/01/2018 05/01/2017, 05/08/2016, 11/08/2015, Additional history exists DIABETIC FOOT EXAM 05/08/2018 05/08/2017, 05/08/2017 COLON CANCER SCREENING 01/05/2021 01/05/2011 PNEUMOCOCCAL-13 Completed 05/26/2014 PNEUMOCOCCAL Completed 05/08/2017, 05/08/2017 POLYSACCHARIDE VACCINE AGE 65 AND OVER Procedures Comments Procedure Name Priority Date/Time Associated Diagnosis ECG PRE/POST OP Routine 07/31/2017 2:12 PM CDT CV LEFT HEART CATH Routine 07/31/2017 Abnormal adenosine 12:10 PM CDT sestamibi study ZZESTIMATED GFR STAT 07/31/2017 10:20 AM CDT PROTHROMBIN TIME WITH INR STAT 07/31/2017 10:20 AM CDT BASIC METABOLIC PANEL STAT 07/31/2017 10:20 AM CDT MRI CERVICAL SPINE W WO Routine 06/15/[address] scan, neck CONTRAST 1:39 PM CDT POC CREATININE Routine 06/15/2017 12:[address] CERVICAL SPINE WO Routine 06/08/2017 Fall, initial encounter CONTRAST 2:20 PM CDT Concussion without loss of consciousness, initial encounter Acute post-traumatic headache, not intractable Neck pain CT HEAD WO CONTRAST Routine 06/08/2017 Fall, initial encounter 2:20 PM CDT Concussion without loss of consciousness, initial encounter Acute post-traumatic headache, not intractable Neck pain ECG 12-LEAD Routine 05/16/2017 Tachycardia 1:42 PM CDT URINALYSIS, AUTOMATED Routine 05/01/2017 WITH MICROSCOPY 8:13 AM CDT HEPATIC FUNCTION PANEL Routine 05/01/2017 8:13 AM CDT CBC WITH PLATELET AND Routine 05/01/2017 Recurrent major DIFFERENTIAL 8:13 AM CDT depressive episodes, in full remission HEMOGLOBIN A1C Routine 05/01/2017 Type 2 diabetes mellitus 8:13 AM CDT without complication, without long-term current use of insulin MICROALBUMIN / CREATININE Routine 05/01/2017 Type 2 diabetes mellitus URINE RATIO 8:13 AM CDT without complication, without long-term current use of insulin BASIC METABOLIC PANEL Routine 05/01/2017 Essential hypertension 8:13 AM CDT after 01/02/2017 Results * ECG Pre/Post Op (07/31/2017 2:12 PM CDT) Ventricular rate 74 [facility] Atrial rate 74 [facility] DE interval 172 [facility] QRSD interval 138 [...] significant change was found- Performing Organization Address City/State/Zipcode Phone Number [facility] M[facility] [address] [place] [address] * 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 Specimen Plasma specimen Performing Organization Address City/[facility] Phone Number [address] [place] [address] PATHOLOGY AND [facility] * Prothrombin time with INR (07/31/2017 10:20 AM CDT) Prothrombin time 12.7 12.0 - 15.0 sec [facility] PATHOLOGY AND [facility] INR 0.94 0.92 - 1.12 [facility] Comment: PATHOLOGY AND For patients on anticoagulant GENOMIC MEDICINE therapy, reference ranges below: Indication: INR Value Treatment of Venous Thrombosis, 2.0-3.0 pulmonary emboli, or prophylaxis of a venous thrombosis, or systemic emboli. High dose, high risk patients 3.0-4.5 with mechanical valves. NOTE:INR values over 3.0 are sometimes associated with gastrointestinal hemorrhage, especially values over 4.0. Specimen Blood Performing Organization Address [facility] Phone Number [address] [place] [address] PATHOLOGY AND [facility] * Basic metabolic panel (07/31/2017 10:20 AM CDT) Only the most recent of 2 results within the time period is included. Sodium 136 135 - 150 mEq/L [facility] PATHOLOGY AND [facility] MEDICINE Potassium 4.6 3.5 - 5.0 mEq/L [facility] PATHOLOGY AND [facility] MEDICINE Chloride 96 (L) 98 - 112 mEq/L [facility] PATHOLOGY AND [facility] MEDICINE CO2 28 24 - 31 mmol/L [facility] PATHOLOGY AND [facility] MEDICINE Anion gap 12@ANIO 7 - 15 mEq/L [facility] OF PATHOLOGY AND GENOMIC MEDICINE BUN 13 7 - 18 mg/dL [facility] PATHOLOGY AND [facility] MEDICINE Creatinine 0.90 0.50 - 0.90 mg/dL [facility] PATHOLOGY AND [facility] MEDICINE Glucose 139 (H) 65 - 100 mg/dL [facility] PATHOLOGY AND [facility] MEDICINE Calcium 10.1 8.8 - 10.2 mg/dL [facility] PATHOLOGY AND [facility] MEDICINE Specimen Plasma specimen Performing Organization Address City/[facility] Phone Number [address] [place] [address] PATHOLOGY AND GENOMIC MEDICINE * MRI Cervical Spine W Wo Contrast (06/15/2017 1:39 PM CDT) Narrative Performed At EXAMINATION:MRI CERVICAL SPINE W WO CONTRAST [facility] CLINICAL HISTORY:R93.8 Abnormal findings on diagnostic [...] and T1-T2 perineural sleeve cysts, incidental findings. [facility]-[id number] Procedure Note Interface, Radiology Results Incoming - [...] and T1-T2 perineural sleeve cysts, incidental findings. [facility]-[id number] Performing Organization Address City/State/Zipcode Phone Number [facility] [address] [place] [address] * POC creatinine (06/15/2017 12:45 PM CDT) POC creatinine 0.8 0.5 - 0.9 mg/dl [facility]OLOGY AND GENOMIC MEDICINE Specimen Blood Performing Organization Address City/[facility] Phone Number [facility] OF [address] [place] [address] PATHOLOGY AND GENOMIC MEDICINE * CT Cervical Spine Wo Contrast (06/08/2017 2:20 PM CDT) Narrative Performed At EXAMINATION: CT CERVICAL SPINE [...] Clarification could be obtained with contrast-enhanced MRI. [id number] Procedure Note Hm Interface, Radiology Results - 06/08/2017 6:38 PM CDT EXAMINATION: CT [...] Clarification could be obtained with contrast-enhanced MRI. [facility]-[id number] Performing Organization Address City/State/Zipcode Phone Number [facility] [address] [place] [address] * CT Head Wo Contrast (06/08/2017 2:20 PM CDT) Narrative Performed At EXAMINATION: CT HEAD WO [...] matter. No acute hemorrhage or hyperdense vessels. [facility]-[id number] Procedure Note Interface, Radiology Results Incoming - 06/08/2017 2:25 [...] matter. No acute hemorrhage or hyperdense vessels. [facility]-[id number] Performing Organization Address [facility] Phone Number [facility] [place] [address] * ECG 12 lead (05/16/2017 1:42 PM CDT) Ventricular rate 93 [facility] Atrial rate 93 [facility] DE interval 164 [facility] QRSD interval 128 [facility] QT interval 386 [facility] QTC interval 479 [facility] P axis 1 59 [facility] QRS axis 1 -56 [facility] T wave axis 30 [facility] EKG impression Normal sinus rhythm-Right [facility] bundle branch block-Left anterior fascicular block-^^^ Bifascicular block ^^^-Abnormal ECG-In automated comparison with ECG of 29-OCT-2015 14:36,-No significant change was found- Performing Organization Address [facility] Phone Number [employer] [facility] [address] [place] [address] * Microalbumin / creatinine urine ratio (05/01/2017 8:13 AM CDT) Creatinine, urine, random 36 20 - 320 mg/dL [facility] [place] Microalbumin, urine <0.2 See Note: mg/dL [facility] Comment: [place] Reference Range: Reference Range Not established Microalbumin/creatinine NOTE <30 mcg/mg creat [facility] ratio Comment: ALAN The microalbumin value is less than 0.2 mg/dL therefore we are unable to calculate excretion and/or creatinine ratio. The ADA defines abnormalities in albumin excretion as follows: Category Result (mcg/mg creatinine) Normal <30 Microalbuminuria 30-299 Clinical albuminuria > KG=200 The ADA recommends that at least two of three specimens collected within a 3-6 month period be abnormal before considering a patient to be within a diagnostic category. Specimen Urine Narrative Performed At FASTING:YES [facility] FASTING: YES Resulting Agency Comment Performing Organization Information: Site ID: [id number] Name: [facility] Address: [address] [place] [phone] Director: Vannessa Vences MD Performing Organization Address City/[facility] Phone Number [facility] [address] [address] * Urinalysis, automated with microscopy (05/01/2017 8:13 AM CDT) Color, UA YELLOW YELLOW [facility] [place] Appearance CLEAR CLEAR [facility] [place] Specific gravity, urine < OR=1.005 1.001 - 1.035 [facility] [place] pH, urine 6.5 5.0 - 8.0 [facility] [place] Glucose, urine NEGATIVE NEGATIVE [facility] [place] Bilirubin, UA NEGATIVE NEGATIVE [facility] [place] Ketones, UA NEGATIVE NEGATIVE [facility] [place] Occult blood, urine NEGATIVE NEGATIVE [facility] [place] Protein, UA NEGATIVE NEGATIVE [facility] [place] Nitrite, UA NEGATIVE NEGATIVE [facility] [place] Leukocyte esterase, UA NEGATIVE NEGATIVE [facility] [place] WBC, UA NONE SEEN < OR=5 /HPF [facility] [place] RBC, UA NONE SEEN < OR=2 /HPF [facility] [place] Squamous epithelial NONE SEEN < OR=5 /HPF [facility] cells, [facility] [place] Bacteria, UA NONE SEEN NONE SEEN /HPF [facility] [place] Hyaline casts, UA NONE SEEN NONE SEEN /LPF [facility] [place] Narrative Performed At FASTING:YES [facility] FASTING: YES Resulting Agency Comment Performing Organization Information: Site ID: [id number] Name: [facility] Address: [address] [place] [phone] Director: Vannessa Vences MD Performing Organization Address City/[facility] Phone Number [employer] [facility] [address] [address] * CBC with platelet and differential (05/01/2017 8:13 AM CDT) WBC 11.0 (H) 3.8 - 10.8 Thousand/uL [facility] [place] RBC 4.44 3.80 - 5.10 Million/uL [facility] HGB 12.4 11.7 - 15.5 g/dL [facility] HCT 37.7 35.0 - 45.0 % [facility] [place] MCV 84.9 80.0 - 100.0 fL [facility] [place] MCH 27.9 27.0 - 33.0 pg [facility] [place] MCHC 32.9 32.0 - 36.0 g/dL [facility] [place] RDW 12.4 11.0 - 15.0 % [facility] [place] Platelet count 483 (H) 140 - 400 Thousand/uL [facility] [place] MPV 8.6 7.5 - 12.5 fL [facility] [place] Neutrophils, absolute 6,534 1,500 - 7,800 cells/uL [facility] [place] Lymphocytes, absolute 3,234 850 - 3,900 cells/uL [facility] [place] Monocytes, absolute 1,100 (H) 200 - 950 cells/uL [facility] [place] Eosinophils, absolute 66 15 - 500 cells/uL [facility] [place] Basophils, absolute 66 0 - 200 cells/uL [facility] [place] Neutrophils 59.4 % [facility] [place] Lymphocytes 29.4 % [facility] [place] Monocytes 10.0 % [facility] [place] Eosinophils 0.6 % [facility] [place] Basophils + RC 0.6 % [facility] [place] Specimen Blood Narrative Performed At FASTING:YES [facility] FASTING: YES Resulting Agency Comment Performing Organization Information: Site ID: [id number] Name: [facility] Address: [address] [place] [phone] Director: Vannessa Vences MD Performing Organization Address City/State/Zipcode Phone Number [facility] [place] [place] [phone] * Hemoglobin A1c (05/01/2017 8:13 AM CDT) Hemoglobin A1C 6.6 (H) <5.7 % of total Hgb [facility] Comment: [place] For someone without known diabetes, a hemoglobin [...] Narrative Performed At FASTING:YES [facility] FASTING: YES Resulting Agency Comment Performing Organization Information: Site ID: [id number] Name: [facility] Address: [address] [place] [phone] Director: Vannessa Vences MD Performing Organization Address City/[facility] Phone [place] [address] * Hepatic function panel (05/01/2017 8:13 AM CDT) Protein 6.9 6.1 - 8.1 g/dL [facility] [place] Albumin, S 4.4 3.6 - 5.1 g/dL [facility] [place] Globulin, total 2.5 1.9 - 3.7 g/dL (calc) [facility] [place] Albumin/globulin ratio 1.8 1.0 - 2.5 (calc) [facility] [place] Total bilirubin 0.6 0.2 - 1.2 mg/dL [facility] [place] Bilirubin direct 0.2 < OR=0.2 mg/dL [facility] [place] Bilirubin, indirect 0.4 0.2 - 1.2 mg/dL (calc) [facility] [place] Alkaline phosphatase 57 33 - 130 U/L [facility] [place] AST 11 10 - 35 U/L [facility] [place] ALT 12 6 - 29 U/L [facility] [place] Narrative Performed At FASTING:YES [facility] FASTING: YES Resulting Agency Comment Performing Organization Information: Site ID: [id number] Name: [facility] Address: [address] [place] [phone] Director: Vannessa Vences MD Performing Organization Address City/State/[facility] Phone Number [employer] [address] [phone] after 01/02/2017 Insurance Payer Benefit Subscriber ID Type Phone Address Plan / Group MEDICARE MEDICARE xxxxxxxxxx Medicare [place] PART A [place] B BCBS BCBS xxxxxxxxxxxx Indemnity PAR/TRAD PLAN Advance Directives Patient has advance care planning documents, and code status on file. For more i nformation, please contact: Waqas Almeida [address] [place] [address] Date Inactivated Comments Code Status Date Activated 07/31/2017 9:16 PM Full Code 07/31/2017 1:27 PM Code Status decision reached by: Patient
--- NOTE | 2018-01-03 07:10 | NUR ---
SPIRITUAL CARE - Pre-Surgery Assessment: Pt in bed. Pt's at bedside. Pt reported supportive attention from family and friends. Intervention: I provided pastoral presence, hospitality, and sympathetic listening. I acquainted pt with availability of capacity management specialist while hospitalized. Outcome: Pt expressed appreciation for visit. No need for follow up indicated at this time. MAIDA [facility] Spiritual Care Department O: [phone] Pager: [phone] ([phone] number calling from)
[2018-01-03 08:50] VITALS: BP 148/89
== END | disposition home or self-care (01) ==
LOC: OR 06:11
PROVIDERS: ATTEND Physical Medicine & Rehabilitation Pain Medicine
DX: M47.892 Other spondylosis, cervical region (principal); M47.26 Other spondylosis with radiculopathy, lumbar region; M54.12 Radiculopathy, cervical region; M54.81 Occipital neuralgia; M46.1 Sacroiliitis, not elsewhere classified; M70.62 Trochanteric bursitis, left hip; M70.61 Trochanteric bursitis, right hip; E11.9 Type 2 diabetes mellitus without complications; I10 Essential (primary) hypertension; F32.9 Major depressive disorder, single episode, unspecified; Z88.6 Allergy status to analgesic agent; Z88.2 Allergy status to sulfonamides; Z79.84 Long term (current) use of oral hypoglycemic drugs; Z91.81 History of falling
CPT/HCPCS: 36415; 64490; 64491; 64492; 82948; J1100; J2001 ×2; J2250; J2704; Q9967; 77003

== ENCOUNTER → 2018-02-21 | Day surgery (SDC) | payer MEDICARE, BC ==
[~2018-02-21] MED LIST changes: -DEXAMETHASONE SOD PHOS 10 MG/1 ML VIAL ONE; +TRIAMCINOLONE ACET 40 MG/ML VIAL ONE
--- OUTSIDE RECORDS SUMMARY | 2018-02-21 05:22 | XMS REPORT | Clinical Summary ---
Author Author [facility] Organization [facility] Address Unknown Phone Unavailable Care Team Providers Care Vascular Specialists Name Role Phone Peña Vela MD PCP [...] THE 8 AFFECTED AREA FOUR TIMES DAILY 03/16/2017 Discontinued cetirizine (ZyrTEC) 10 MG Take [...] mg total) 7 tablet by mouth daily. 03/02/2017 Discontinued DULoxetine (CYMBALTA) [...] (5 mg total) 7 by mouth daily. 04/02/2017 Discontinued chlorthalidone (HYGROTEN) [...] Hussain Bird MD Cv left heart cath [41796 (CPT)] 07/31/2017 Surgery Procedural Cardiology Hussain Bird [...] Essential hypertension (Primary Dx); Tachycardia 05/16/2017 Clinical Family Medicine Support Peña Vela MD Mixed hyperlipidemia (Primary Dx); Recurrent major depressive episodes, in full remission; Type 2 diabetes mellitus without complication, without long-term current use of insulin; Essential hypertension; Hyponatremia; Essential hypertension; Pneumococcal vaccination administered at current visit 05/08/2017 Office Visit Family Medicine Peña Vela MD Costochondritis (Primary Dx); Closed fracture of anatomical neck of left humerus, sequela 04/06/2017 Office Visit Family Medicine Haley Sylvester NP 04/02/2017 Refill Family Medicine Peña Vela MD Blood pressure check (Primary Dx); BMI 30.0-30.9,adult 03/16/2017 Clinical Family Medicine Support Peña Vela MD 03/02/2017 Refill Family Medicine Haley Sylvester NP Trigeminal neuralgia (Primary Dx) 02/23/2017 Office Visit Family Medicine Merced Sumner MA 02/22/2017 Telephone Family Medicine after 02/20/2017 Immunizations Name Dates Previously Given Next Due [...] Last Done Comments BREAST CANCER SCREENING 1997 SHINGLES VACCINES (1 of 1997 2) DIABETIC RETINAL EYE EXAM 05/09/2017 05/09/2016 INFLUENZA [...] 05/01/2017 Essential hypertension 8:13 AM CDT after 02/20/2017 Results * ECG Pre/Post Op (07/31/2017 2:12 PM CDT) Ventricular rate 74 [facility] Atrial rate 74 [facility] MA interval 172 [facility] QRSD interval 138 [...] found- Performing Organization Address City/State/Zipcode Phone Number [facility] [address] [place] [address] * Cv pathology laboratory director procedure (07/31/2017 12:10 PM CDT) Narrative Performed At Performing Organization Address City/State/Zipcode Phone Number [facility] [address] [place] [address] * Estimated GFR (07/31/2017 10:20 AM CDT) GFR Non Af Amer 62 mL/min/1.73 m2 [facility] AND [facility] GFR Af Amer 75 mL/min/1.73 m2 [facility] OF Comment: PATHOLOGY AND Chronic kidney [...] Americans. Specimen Plasma specimen Performing Organization Address [facility] Phone Number [place] [address] [place] [phone] PATHOLOGY AND [facility] * Prothrombin time with INR (07/31/2017 10:20 AM CDT) Prothrombin time 12.7 12.0 - 15.0 sec [facility] AND GENOMIC MEDICINE INR 0.94 0.92 - 1.12 [facility] OF Comment: PATHOLOGY AND For patients on anticoagulant GENOMIC MEDICINE therapy, reference ranges below: Indication: INR Value Treatment of Venous Thrombosis, 2.0-3.0 pulmonary emboli, or prophylaxis of a venous thrombosis, or systemic emboli. High dose, high risk patients 3.0-4.5 with mechanical valves. NOTE:INR values over 3.0 are sometimes associated with gastrointestinal hemorrhage, especially values over 4.0. Specimen Blood Performing Organization Address City/State/Zipcode Phone Number [facility] [address] [facility] [place] [address] PATHOLOGY AND [facility] * Basic metabolic panel (07/31/2017 10:20 AM CDT) Only the most recent of 2 results within the time period is included. Sodium 136 135 - 150 mEq/L [facility] OF PATHOLOGY AND GENOMIC MEDICINE Potassium 4.6 3.5 - 5.0 mEq/L [facility] OF PATHOLOGY AND GENOMIC MEDICINE Chloride 96 (L) 98 - 112 mEq/L [facility] OF PATHOLOGY AND GENOMIC MEDICINE CO2 28 24 - 31 mmol/L [facility] OF PATHOLOGY AND GENOMIC MEDICINE Anion gap 12@ANIO 7 - 15 mEq/L [facility] OF PATHOLOGY AND GENOMIC MEDICINE BUN 13 7 - 18 mg/dL [facility] OF PATHOLOGY AND GENOMIC MEDICINE Creatinine 0.90 0.50 - 0.90 mg/dL [facility] OF PATHOLOGY AND GENOMIC MEDICINE Glucose 139 (H) 65 - 100 mg/dL [facility] OF PATHOLOGY AND GENOMIC MEDICINE Calcium 10.1 8.8 - 10.2 mg/dL [facility] OF PATHOLOGY AND GENOMIC MEDICINE Specimen Plasma specimen Performing Organization Address City/State/Zipcode Phone Number [place] [phone] [place] [address] PATHOLOGY AND GENOMIC MEDICINE * MRI Cervical [...] and T1-T2 perineural sleeve cysts, incidental findings. [facility]-[id number] Procedure Note Hm Interface, Radiology Results - 06/15/2017 4:08 PM CDT EXAMINATION: MRI [...] and T1-T2 perineural sleeve cysts, incidental findings. [id number] Performing Organization Address City/State/Zipcode Phone Number [facility] [address] [place] [address] * POC creatinine (06/15/2017 12:45 PM CDT) POC creatinine 0.8 0.5 - 0.9 mg/dl [facility] PATHOLOGY AND GENOMIC MEDICINE Specimen Blood Performing Organization Address City/State/Zipcode Phone Number [facility] [address] [place] [address] PATHOLOGY AND GENOMIC MEDICINE * CT Cervical [...] Clarification could be obtained with contrast-enhanced MRI. [id number] Procedure Note Hm Interface, Radiology Results Incoming [...] Clarification could be obtained with contrast-enhanced MRI. [id number] Performing Organization Address City/State/Zipcode Phone Number [facility] [address] [place] [address] * CT Head Wo Contrast (06/08/2017 2:20 [...] matter. No acute hemorrhage or hyperdense vessels. [facility]-[id number] Procedure Note Interface, Radiology Results Incoming - [...] matter. No acute hemorrhage or hyperdense vessels. [facility]-[id number] Performing Organization Address City/State/Zipcode Phone Number [facility] [address] [place] [address] * ECG 12 lead (05/16/2017 1:42 PM CDT) Ventricular rate 93 [facility] Atrial rate 93 [facility] MA interval 164 [facility] QRSD interval 128 [facility] QT interval 386 [facility] QTC interval 479 [facility] P axis 1 59 [facility] QRS axis 1 -56 [facility] T wave axis 30 [facility] EKG impression Normal sinus rhythm-Right [facility] bundle branch block-Left anterior fascicular block-^^^ Bifascicular block ^^^-Abnormal ECG-In automated comparison with ECG of 29-OCT-2015 14:36,-No significant change was found- Performing Organization Address [facility] Phone Number [facility] [address] [place] [address] * Microalbumin / creatinine urine ratio (05/01/2017 8:13 AM CDT) Creatinine, urine, random 36 20 - 320 mg/dL [facility] Microalbumin, urine <0.2 See Note: mg/dL [facility] Comment: [facility] Reference Range: Reference Range Not established Microalbumin/creatinine NOTE <30 mcg/mg creat [facility] ratio Comment: [facility] The microalbumin value is less than 0.2 mg/dL therefore we are unable to calculate excretion and/or creatinine ratio. The ADA defines abnormalities in albumin excretion as follows: Category Result (mcg/mg creatinine) Normal <30 Microalbuminuria 30-299 Clinical albuminuria > UV=799 The ADA recommends that at least two of three specimens collected within a 3-6 month period be abnormal before considering a patient to be within a diagnostic category. Specimen Urine Narrative Performed At FASTING:YES [facility] FASTING: YES Resulting Agency Comment Performing Organization Information: Site ID: [id number] Name: [facility] Address: [address] [place] [phone] Director: Vannessa Vences MD Performing Organization Address [facility] Phone Number [facility] [address] [place], [place] [phone] * Urinalysis, automated with microscopy (05/01/2017 8:13 AM CDT) Color, UA YELLOW YELLOW [facility] Appearance CLEAR CLEAR [facility] Specific gravity, urine < OR=1.005 1.001 - 1.035 [facility] pH, urine 6.5 5.0 - 8.0 [facility] Glucose, urine NEGATIVE NEGATIVE [facility] Bilirubin, UA NEGATIVE NEGATIVE [facility] Ketones, UA NEGATIVE NEGATIVE [facility] Occult blood, urine NEGATIVE NEGATIVE [facility] Protein, UA NEGATIVE NEGATIVE [facility] Nitrite, UA NEGATIVE NEGATIVE [facility] [place] Leukocyte esterase, UA NEGATIVE NEGATIVE [facility] WBC, UA NONE SEEN < OR=5 /HPF [facility] [place] RBC, UA NONE SEEN < OR=2 /HPF [facility] [place] Squamous epithelial NONE SEEN < OR=5 /HPF [facility] cells, UA [place] Bacteria, UA NONE SEEN NONE SEEN /HPF [facility] [place] Hyaline casts, UA NONE SEEN NONE SEEN /LPF [facility] Narrative Performed At FASTING:YES [facility] FASTING: YES Resulting Agency Comment Performing Organization Information: Site ID: [id number] Name: [facility] Address: [address] [place] [address] Director: Vannessa Vences MD Performing Organization Address City/State/Zipcode Phone Number [facility] [address] [place] [phone] * CBC with platelet and differential (05/01/2017 8:13 AM CDT) WBC 11.0 (H) 3.8 - 10.8 Thousand/uL [facility] RBC 4.44 3.80 - 5.10 Million/uL [facility] HGB 12.4 11.7 - 15.5 g/dL [facility] HCT 37.7 35.0 - 45.0 % [facility] MCV 84.9 80.0 - 100.0 fL [facility] MCH 27.9 27.0 - 33.0 pg [facility] MCHC 32.9 32.0 - 36.0 g/dL [facility] RDW 12.4 11.0 - 15.0 % [facility] Platelet count 483 (H) 140 - 400 Thousand/uL [facility] MPV 8.6 7.5 - 12.5 fL [facility] Neutrophils, absolute 6,534 1,500 - 7,800 cells/uL [facility] Lymphocytes, absolute 3,234 850 - 3,900 cells/uL [facility] Monocytes, absolute 1,100 (H) 200 - 950 cells/uL [facility] Eosinophils, absolute 66 15 - 500 cells/uL [facility] Basophils, absolute 66 0 - 200 cells/uL [facility] Neutrophils 59.4 % [facility] Lymphocytes 29.4 % [facility] Monocytes 10.0 % [facility] Eosinophils 0.6 % [facility] Basophils + RC 0.6 % [facility] Specimen Blood Narrative Performed At FASTING:YES [facility] FASTING: YES Resulting Agency Comment Performing Organization Information: Site ID: [id number] Name: [facility] Address: [address] [place] [phone] Director: Vannessa Vences MD Performing Organization Address [facility] Phone Number [facility] [address] [address] * Hemoglobin A1c (05/01/2017 8:13 AM CDT) Hemoglobin A1C 6.6 (H) <5.7 % of total Hgb [facility] Comment: [facility] For someone without known diabetes, a hemoglobin [...] Performing Organization Information: Site ID: [id number] Name: [facility] Address: [address] [place] [phone] Director: Vannessa Vences MD Performing Organization Address [facility] Phone Number [facility] [address] [address] * Hepatic function panel (05/01/2017 8:13 AM CDT) Protein 6.9 6.1 - 8.1 g/dL [facility] Albumin, S 4.4 3.6 - 5.1 g/dL [facility] Globulin, total 2.5 1.9 - 3.7 g/dL (calc) [facility] Albumin/globulin ratio 1.8 1.0 - 2.5 (calc) [facility] Total bilirubin 0.6 0.2 - 1.2 mg/dL [facility] Bilirubin direct 0.2 < OR=0.2 mg/dL [facility] Bilirubin, indirect 0.4 0.2 - 1.2 mg/dL (calc) [facility] Alkaline phosphatase 57 33 - 130 U/L [facility] AST 11 10 - 35 U/L [facility] [place] ALT 12 6 - 29 U/L [facility] Narrative Performed At FASTING:YES [facility] FASTING: YES Resulting Agency Comment Performing Organization Information: Site ID: [id number] Name: [facility] Address: [address] [place] [address] Director: Vannessa Vences MD Performing Organization Address City/State/Zipcode Phone Number [facility] [address] [place] [address] after 02/20/2017 Insurance Payer Benefit Subscriber ID Type Phone Address Plan / Group MEDICARE MEDICARE xxxxxxxxxx Medicare [place], [place] PART A AND B BCBS BCBS xxxxxxxxxxxx Indemnity PAR/TRAD PLAN Advance Directives Patient has advance care planning documents, and code status on file. For more i nformation, please contact: Waqas Almeida [address] [place] [address] Date Inactivated Comments Code Status Date Activated 07/31/2017 9:16 PM Full Code 07/31/2017 1:27 PM Code Status decision reached by: Patient
[2018-02-21 06:15] LABS: BASOPHILS # (AUTO) 0.1 (0.0-0.1); EOSINOPHILS # (AUTO) 0.4 (0.0-0.4); EOSINOPHILS % 4.2 % (0.0-6.0); HEMATOCRIT 34.9 % (34.2-44.1); HEMOGLOBIN 11.7 g/dL (12.0-16.0); LYMPHOCYTES # (AUTO) 2.8 (1.0-3.2); LYMPHOCYTES % 34.1 % (18.0-39.1); MEAN CORPUSCULAR HGB CONC 33.5 g/dL (31-35); MEAN CORPUSCULAR VOLUME 83.5 fL (81-99); MONOCYTES # (AUTO) 0.9 (0.2-0.8); MONOCYTES % 10.9 % (4.4-11.3); NEUTROPHILS % 48.8 % (38.7-80.0); PLATELET COUNT 276 x10e3/uL (140-360); RED BLOOD COUNT 4.18 x10e6/uL (3.6-5.1); RED CELL DISTRIBUTION WIDTH 13.2 % (11.7-14.4)
[2018-02-21 07:20] VITALS: BP 154/77
== END | disposition home or self-care (01) ==
LOC: OR 05:18
PROVIDERS: ATTEND Physical Medicine & Rehabilitation Pain Medicine
DX: M47.896 Other spondylosis, lumbar region (principal); M47.812 Spondylosis without myelopathy or radiculopathy, cervical region; M54.16 Radiculopathy, lumbar region; M54.12 Radiculopathy, cervical region; M54.81 Occipital neuralgia; M70.62 Trochanteric bursitis, left hip; M70.61 Trochanteric bursitis, right hip; I10 Essential (primary) hypertension; E11.9 Type 2 diabetes mellitus without complications; Z91.048 Other nonmedicinal substance allergy status; I45.10 Unspecified right bundle-branch block; R06.02 Shortness of breath; K21.9 Gastro-esophageal reflux disease without esophagitis; F32.9 Major depressive disorder, single episode, unspecified; Z88.6 Allergy status to analgesic agent; Z88.2 Allergy status to sulfonamides; Z79.84 Long term (current) use of oral hypoglycemic drugs; Z68.32 Body mass index [BMI] 32.0-32.9, adult; Z91.81 History of falling; Z87.81 Personal history of (healed) traumatic fracture; Z87.891 Personal history of nicotine dependence
CPT/HCPCS: 36415; 64493; 64494; 64495; 82948; 85025; J2001 ×2; J2250; J2704; J3301; Q9967; 77003

== ENCOUNTER → 2018-04-25 | Day surgery (SDC) | payer MEDICARE, BC ==
[~2018-04-25] MED LIST changes: +AJOVY INJ; +DEXAMETHASONE SOD PHOS 10 MG/1 ML VIAL ONE; -LIDOCAINE HCL 2% LOCAL INJ 5 ML SDV VIAL INJ ONE; -PROPOFOL IV EMULSION 10 MG/ML 20 ML VIAL ONE; -TRIAMCINOLONE ACET 40 MG/ML VIAL ONE
--- OUTSIDE RECORDS SUMMARY | 2018-04-25 06:18 | XMS REPORT | Clinical Summary ---
Author Author [facility] Address Unknown Phone Unavailable Care Team Providers Care Solar Energy Technician Name Role Phone Peña Vela MD PCP Unavailable Allergies Comments Active Allergy Reactions Severity Noted [...] (ATROVENT) 0 0.03 % nasal spray 7 Active ipratropium (ATROVENT) 42 0 mcg (0.06 [...] THE 8 AFFECTED AREA FOUR TIMES DAILY 05/08/2017 Discontinued esomeprazole (NexIUM) 40 Take 1 [...] mg total) 7 tablet by mouth daily. 12/03/2017 Discontinued VOLTAREN 1 % gel Apply 500 g 11 topically 4 7 (four) times a day. 05/08/2017 Discontinued amLODIPine (NORVASC) 5 mg TAKE ONE 90 tablet 1 tabletIndications: TABLET BY 8 Essential hypertension MOUTH ONCE DAILY 05/08/2017 Discontinued DULoxetine (CYMBALTA) 60 TAKE ONE 90 capsule 1 MG capsule CAPSULE BY 8 MOUTH TWICE DAILY 05/08/2017 Discontinued meloxicam (MOBIC) 15 mg Take 1 tablet 90 tablet 1 tablet (15 mg total) 8 by mouth daily for 90 days. 05/08/2017 Discontinued chlorthalidone (HYGROTEN) TAKE ONE 90 tablet 0 25 MG tablet TABLET BY 8 MOUTH ONCE DAILY 04/06/2018 sucralfate (CARAFATE) 1 Take 1 tablet 120 tablet 0 gram tablet (1 g total) 8 by mouth 4 (four) times a day. 07/31/2017 Discontinued amLODIPine (NORVASC) 5 mg Take [...] Hussain Bird MD Cv left heart cath [53482 (CPT)] 07/31/2017 Surgery Procedural Cardiology Hussain Bird MD Abnormal adenosine sestamibi study 07/31/2017 Hospital Procedural Cardiology Encounter Alicia Biggs, SUMIT 06/22/2017 Telephone Family Medicine Haley Sylvester NP Perineural cysts (Primary Dx) 06/21/2017 Orders Only Family Medicine Haley Sylvester NP 06/21/2017 Documentation Family Medicine Alicia Biggs, [facility] 06/20/2017 Telephone Family Medicine Haley Sylvester NP [...] current visit 05/08/2017 Office Visit Family Medicine after 04/24/2017 Immunizations Name Dates Previously Given Next Due [...] Comments BREAST CANCER SCREENING 1997 SHINGLES VACCINES (#1) 1997 INFLUENZA VACCINE 09/05/2017 11/07/2016, 11/18/2015, 11/24/2014, Additional history exists URINE MICROALBUMIN 05/01/2018 05/01/2017, 05/08/2016, 11/08/2015, Additional history exists DIABETIC FOOT EXAM 05/08/2018 05/08/2017, 05/08/2017 DIABETIC RETINAL EYE EXAM 05/09/2018 05/09/2016 COLON CANCER SCREENING 01/05/2021 01/05/2011 65+ PNEUMOCOCCAL VACCINE Completed 05/08/2017, 05/26/2014 PNEUMOCOCCAL Completed 05/08/2017, 05/08/2017 POLYSACCHARIDE VACCINE [...] 05/01/2017 Essential hypertension 8:13 AM CDT after 04/24/2017 Results * ECG Pre/Post Op (07/31/2017 2:12 PM CDT) Ventricular rate 74 [facility] Atrial rate 74 [facility] AR interval 172 [facility] QRSD interval 138 [facility] QT interval 432 [facility] QTC interval 479 [facility] P axis 1 58 [facility] QRS axis 1 -52 [facility] T wave axis 41 [facility] EKG impression Normal sinus rhythm with sinus [facility] arrhythmia-Right bundle branch block-Left anterior fascicular block-^^^ Bifascicular block ^^^-Abnormal ECG-In automated comparison with ECG of 16-MAY-2017 13:42,-No significant change was found- Performing Organization Address City/State/Zipcode Phone Number [facility] [address] [place] [address] * Cv collaborating supervising physician procedure (07/31/2017 12:10 PM CDT) Narrative Performed At Performing Organization Address City/State/Zipcode Phone Number [facility] [address] [place] [address] * Estimated GFR (07/31/2017 10:20 AM CDT) GFR Non Af Amer 62 mL/min/1.73 m2 [facility] AND GENOMIC MEDICINE GFR Af Amer 75 mL/min/1.73 m2 [facility] OF Comment: PATHOLOGY AND Chronic kidney [...] Americans. Specimen Plasma specimen Performing Organization Address City/State/Zipcode Phone Number [facility] [address] [place] [address] PATHOLOGY AND GENOMIC MEDICINE * Prothrombin time with INR (07/31/2017 10:20 AM CDT) Prothrombin time 12.7 12.0 - 15.0 sec [facility] AND GENOMIC MEDICINE INR 0.94 0.92 - 1.12 [facility] Comment: PATHOLOGY AND For patients on anticoagulant GENOMIC MEDICINE therapy, reference ranges below: Indication: INR Value Treatment of Venous Thrombosis, 2.0-3.0 pulmonary emboli, or prophylaxis of a venous thrombosis, or systemic emboli. High dose, high risk patients 3.0-4.5 with mechanical valves. NOTE:INR values over 3.0 are sometimes associated with gastrointestinal hemorrhage, especially values over 4.0. Specimen Blood Performing Organization Address City/[facility] Phone Number [facility] [address] [place] [address] PATHOLOGY AND GENOMIC MEDICINE * Basic metabolic panel (07/31/2017 10:20 AM CDT) Only the most recent of 2 results within the time period is included. Sodium 136 135 - 150 mEq/L [facility]OLOGY AND GENOMIC MEDICINE Potassium 4.6 3.5 - 5.0 mEq/L [facility]OLOGY AND GENOMIC MEDICINE Chloride 96 (L) 98 - 112 mEq/L [facility]OLOGY AND GENOMIC MEDICINE CO2 28 24 - 31 mmol/L [facility] PATHOLOGY AND GENOMIC MEDICINE Anion gap 12@ANIO 7 - 15 mEq/L [facility]OLOGY AND GENOMIC MEDICINE BUN 13 7 - 18 mg/dL [facility]OLOGY AND GENOMIC MEDICINE Creatinine 0.90 0.50 - 0.90 mg/dL [facility]OLOGY AND GENOMIC MEDICINE Glucose 139 (H) 65 - 100 mg/dL [facility]OLOGY AND GENOMIC MEDICINE Calcium 10.1 8.8 - 10.2 mg/dL [facility]OLOGY AND GENOMIC MEDICINE Specimen Plasma specimen Performing Organization Address City/[facility] Phone Number [place] [phone] [place] [address] PATHOLOGY AND GENOMIC MEDICINE * MRI Cervical [...] and T1-T2 perineural sleeve cysts, incidental findings. [facility]-[id number] Procedure Note Hm Interface, Radiology Results Incoming [...] and T1-T2 perineural sleeve cysts, incidental findings. [facility]-[id number] Performing Organization Address City/State/Zipcode Phone Number [facility] [address] [place] [address] * POC creatinine (06/15/2017 12:45 PM CDT) POC creatinine 0.8 0.5 - 0.9 mg/dl [facility]Y AND GENOMIC MEDICINE Specimen Blood Performing Organization Address City/State/Zipcode Phone Number [facility] OF [address] [place] [address] PATHOLOGY AND GENOMIC MEDICINE * CT Cervical Spine Wo Contrast (06/08/2017 2:20 PM CDT) Narrative Performed At EXAMINATION: CT CERVICAL SPINE WO CONTRAST [facility] CLINICAL HISTORY: W19.XXXA Unspecified fallinitial encounter, [...] Clarification could be obtained with contrast-enhanced MRI. [id number] Procedure Note Hm Interface, Radiology Results - [...] Clarification could be obtained with contrast-enhanced MRI. [id number] Performing Organization Address City/State/Zipcode Phone Number [facility] [address] [place] [address] * CT Head Wo Contrast (06/08/2017 2:20 [...] acute hemorrhage or hyperdense vessels. [facility]-[id number] Procedure Note Interface, Radiology Results Incoming - [...] acute hemorrhage or hyperdense vessels. [facility]-[id number] Performing Organization Address [facility] Phone Number [facility] [address] [place] [address] * ECG 12 lead (05/16/2017 1:42 PM CDT) Ventricular rate 93 [facility] Atrial rate 93 [facility] AR interval 164 [facility] QRSD interval 128 [facility] QT interval 386 [facility] QTC interval 479 [facility] P axis 1 59 [facility] QRS axis 1 -56 [facility] T wave axis 30 [facility] EKG impression Normal sinus rhythm-Right [facility] bundle branch block-Left anterior fascicular block-^^^ Bifascicular block ^^^-Abnormal ECG-In automated comparison with ECG of 29-OCT-2015 14:36,-No significant change was found- Performing Organization Address [facility] Phone Number [facility] [address] [place] [address] * Microalbumin / creatinine urine ratio (05/01/2017 8:13 AM CDT) Creatinine, urine, random 36 20 - 320 mg/dL [facility] [place] Microalbumin, urine <0.2 See Note: mg/dL [facility] Comment: [place] Reference Range: Reference Range Not established Microalbumin/creatinine NOTE <30 mcg/mg creat [facility] ratio Comment: [place] The microalbumin value is less than 0.2 mg/dL therefore we are unable to calculate excretion and/or creatinine ratio. The ADA defines abnormalities in albumin excretion as follows: Category Result (mcg/mg creatinine) Normal <30 Microalbuminuria 30-299 Clinical albuminuria > [id number] The ADA recommends that at least two of three specimens collected within a 3-6 month period be abnormal before considering a patient to be within a diagnostic category. Specimen Urine Narrative Performed At FASTING:YES [facility] FASTING: YES Resulting Agency Comment Performing Organization Information: Site ID: [id number] Name: [facility] Address: [address] [place] [phone] Director: Vannessa Vences MD Performing Organization Address [facility] Phone Number [facility] [place] [phone] * Urinalysis, automated with microscopy (05/01/2017 8:13 AM CDT) Color, UA YELLOW YELLOW [facility] [place] Appearance CLEAR CLEAR [facility] [place] Specific gravity, urine < OR=1.005 1.001 - 1.035 [facility] [place] pH, urine 6.5 5.0 - 8.0 [facility] [place] Glucose, urine NEGATIVE NEGATIVE [facility] [place] Bilirubin, UA NEGATIVE NEGATIVE [facility] [place] Ketones, UA NEGATIVE NEGATIVE [facility] [place] Occult blood, urine NEGATIVE NEGATIVE [facility] [place] Protein, UA NEGATIVE NEGATIVE [facility] [place] Nitrite, UA NEGATIVE NEGATIVE [facility] [place] Leukocyte esterase, UA NEGATIVE NEGATIVE [facility] [place] WBC, UA NONE SEEN < OR=5 /HPF [facility] [place] RBC, UA NONE SEEN < OR=2 /HPF [facility] [place] Squamous epithelial NONE SEEN < OR=5 /HPF [facility] cells, [facility]A [place] Bacteria, UA NONE SEEN NONE SEEN /HPF [facility] [place] Hyaline casts, UA NONE SEEN NONE SEEN /LPF [facility] [place] Narrative Performed At FASTING:YES [facility] FASTING: YES Resulting Agency Comment Performing Organization Information: Site ID: [id number] Name: [facility] Address: [address] [place] [phone] Director: Vannessa Vences MD Performing Organization Address City/State/Zipcode Phone Number [facility] [place] [phone] * CBC with platelet and differential (05/01/2017 8:13 AM CDT) WBC 11.0 (H) 3.8 - 10.8 Thousand/uL [facility] [place] RBC 4.44 3.80 - 5.10 Million/uL [facility] [place] HGB 12.4 11.7 - 15.5 g/dL [facility] [place] HCT 37.7 35.0 - 45.0 % [facility] [place] MCV 84.9 80.0 - 100.0 fL [facility] [place] MCH 27.9 27.0 - 33.0 pg [facility] [place] MCHC 32.9 32.0 - 36.0 g/dL [facility] [place] RDW 12.4 11.0 - 15.0 % [facility] [place] Platelet count 483 (H) 140 - 400 Thousand/uL [facility] [place] MPV 8.6 7.5 - 12.5 fL [facility] [place] Neutrophils, absolute 6,534 1,500 - 7,800 cells/uL [facility] Lymphocytes, absolute 3,234 850 - 3,900 cells/uL [facility] [place] Monocytes, absolute 1,100 (H) 200 - 950 cells/uL [facility] [place] Eosinophils, absolute 66 15 - 500 cells/uL [facility] [place] Basophils, absolute 66 0 - 200 cells/uL [facility] [place] Neutrophils 59.4 % [facility] [place] Lymphocytes 29.4 % [facility] [place] Monocytes 10.0 % [facility] [place] Eosinophils 0.6 % [facility] [place] Basophils + RC 0.6 % [facility] [place] Specimen Blood Narrative Performed At FASTING:YES [facility] FASTING: YES Resulting Agency Comment Performing Organization Information: Site ID: [id number] Name: [facility] Address: [address] [place] [phone] Director: Vannessa Vences MD Performing Organization Address [facility] Phone Number [employer] [place] [address] * Hemoglobin A1c (05/01/2017 8:13 AM CDT) Hemoglobin A1C 6.6 (H) <5.7 % of total Hgb [facility] Comment: [place] For someone without known diabetes, a hemoglobin [...] Performing Organization Information: Site ID: [id number] Name: [facility] Address: [address] [place] [phone] Director: Vannessa Vences MD Performing Organization Address [facility] Phone Number [facility] [address] [address] * Hepatic function panel (05/01/2017 8:13 AM CDT) Protein 6.9 6.1 - 8.1 g/dL [facility] [place] Albumin, S 4.4 3.6 - 5.1 g/dL [facility] [place] Globulin, total 2.5 1.9 - 3.7 g/dL (calc) [facility] [place] Albumin/globulin ratio 1.8 1.0 - 2.5 (calc) [facility] [place] Total bilirubin 0.6 0.2 - 1.2 mg/dL [facility] [place] Bilirubin direct 0.2 < OR=0.2 mg/dL [facility] [place] Bilirubin, indirect 0.4 0.2 - 1.2 mg/dL (calc) [facility] [place] Alkaline phosphatase 57 33 - 130 U/L [facility] [place] AST 11 10 - 35 U/L [facility] [place] ALT 12 6 - 29 U/L [facility] [place] Narrative Performed At FASTING:YES [facility] FASTING: YES Resulting Agency Comment Performing Organization Information: Site ID: [id number] Name: [facility] Address: [address] [place] [phone] Director: Vannessa Vences MD Performing Organization Address City/State/Zipcode Phone Number [facility] [place] [address] [place] [address] after 04/24/2017 Insurance Payer Benefit Subscriber ID Type Phone Address Plan / Group MEDICARE MEDICARE xxxxxxxxxx Medicare [place] PART A AND B BCBS BCBS xxxxxxxxxxxx Indemnity PAR/TRAD PLAN Advance Directives Patient has advance care planning documents, and code status on file. For more i nformation, please contact: Waqas Almeida [address] [place] [address] Date Inactivated Comments Code Status Date Activated 07/31/2017 9:16 PM Full Code 07/31/2017 1:27 PM Code Status decision reached by: Patient
[2018-04-25 06:49] LABS: BASOPHILS # (AUTO) 0.1 (0.0-0.1); EOSINOPHILS # (AUTO) 0.2 (0.0-0.4); EOSINOPHILS % 2.8 % (0.0-6.0); HEMATOCRIT 38.7 % (34.2-44.1); HEMOGLOBIN 13.1 g/dL (12.0-16.0); LYMPHOCYTES # (AUTO) 2.1 (1.0-3.2); LYMPHOCYTES % 29.3 % (18.0-39.1); MEAN CORPUSCULAR HEMOGLOBIN 29.6 pg (28-32); MEAN CORPUSCULAR HGB CONC 33.9 g/dL (31-35); MEAN CORPUSCULAR VOLUME 87.4 fL (81-99); MONOCYTES % 14.2 % (4.4-11.3); NEUTROPHILS # (AUTO) 3.8 (2.1-6.9); NEUTROPHILS % 51.9 % (38.7-80.0); PLATELET COUNT 278 x10e3/uL (140-360); RED BLOOD COUNT 4.43 x10e6/uL (3.6-5.1); RED CELL DISTRIBUTION WIDTH 12.8 % (11.7-14.4)
[2018-04-25 08:10] VITALS: BP 115/83
== END | disposition home or self-care (01) ==
LOC: OR 06:15
PROVIDERS: ATTEND Physical Medicine & Rehabilitation Pain Medicine
DX: M47.26 Other spondylosis with radiculopathy, lumbar region (principal); M47.896 Other spondylosis, lumbar region; M47.892 Other spondylosis, cervical region; G50.0 Trigeminal neuralgia; M54.81 Occipital neuralgia; M79.18 Myalgia, other site; G44.209 Tension-type headache, unspecified, not intractable; I10 Essential (primary) hypertension; J45.909 Unspecified asthma, uncomplicated; E11.9 Type 2 diabetes mellitus without complications; K21.9 Gastro-esophageal reflux disease without esophagitis; I45.10 Unspecified right bundle-branch block; R00.1 Bradycardia, unspecified; Z88.6 Allergy status to analgesic agent; Z88.2 Allergy status to sulfonamides; Z79.84 Long term (current) use of oral hypoglycemic drugs; Z91.81 History of falling
CPT/HCPCS: 36415; 64483; 64484; 82948; 85025; 93005; J1100; J2001; J2250; Q9967; 77003

== ENCOUNTER → 2018-09-05 | Day surgery (SDC) | payer MEDICARE, BC ==
[2018-09-04 16:17] LABS: BASOPHILS # (AUTO) 0.1 (0.0-0.1); BASOPHILS % 0.9 % (0.0-1.0); EOSINOPHILS # (AUTO) 0.2 (0.0-0.4); EOSINOPHILS % 2.9 % (0.0-6.0); HEMATOCRIT 37.1 % (34.2-44.1); HEMOGLOBIN 12.3 g/dL (12.0-16.0); LYMPHOCYTES # (AUTO) 1.8 (1.0-3.2); LYMPHOCYTES % 24.2 % (18.0-39.1); MEAN CORPUSCULAR HEMOGLOBIN 29.6 pg (28-32); MEAN CORPUSCULAR HGB CONC 33.2 g/dL (31-35); MEAN CORPUSCULAR VOLUME 89.2 fL (81-99); MONOCYTES # (AUTO) 0.8 (0.2-0.8); MONOCYTES % 10.3 % (4.4-11.3); NEUTROPHILS # (AUTO) 4.6 (2.1-6.9); PLATELET COUNT 280 x10e3/uL (140-360); RED BLOOD COUNT 4.16 x10e6/uL (3.6-5.1); RED CELL DISTRIBUTION WIDTH 12.8 % (11.7-14.4)
[~2018-09-05] MED LIST changes: +BUPIVACAINE HCL 0.5% INJ 30 ML VIAL INJ ONE; -DEXAMETHASONE SOD PHOS 10 MG/1 ML VIAL ONE; +IRON PO; +LIDOCAINE HCL 2% LOCAL INJ 5 ML SDV VIAL INJ ONE; +NYSTATIN-TRIAMC15 GM TOP; +PROPOFOL IV EMULSION 10 MG/ML 20 ML VIAL ONE; +TERCONAZOLE20 GM TOP; +TRIAMCINOLONE ACET 40 MG/ML VIAL ONE; +VITAMIN B-121000 MC2 PO
--- OUTSIDE RECORDS SUMMARY | 2018-09-05 05:29 | XMS REPORT | Clinical Summary ---
Author Author [facility] Address Unknown Phone Unavailable Care Team Providers Care Regulator Operator Name Role Phone Peña Vela MD PCP [...] THE 8 AFFECTED AREA FOUR TIMES DAILY 12/03/2017 Discontinued VOLTAREN 1 % gel Apply 500 g 11 topically 4 7 (four) times a day. 04/06/2018 sucralfate (CARAFATE) 1 Take 1 tablet 120 tablet 0 gram tablet (1 g total) 8 by mouth 4 (four) times a day. 11/12/2017 Discontinued rosuvastatin (CRESTOR) 10 Take 1 [...] Peña Vela MD 11/12/2017 Refill Family Medicine after 09/04/2017 Immunizations Name Dates Previously Given Next Due [...] travel history available. Last Filed Vital Signs Not on file Plan of Treatment Health Maintenance Due Date Last Done Comments BREAST CANCER SCREENING 1997 SHINGLES VACCINES (#1) 1997 URINE MICROALBUMIN 05/01/2018 05/01/2017, 05/08/2016, 11/08/2015, Additional history exists DIABETIC FOOT EXAM 05/08/2018 05/08/2017, 05/08/2017 DIABETIC RETINAL EYE EXAM 05/09/2018 05/09/2016 INFLUENZA VACCINE 09/05/2018 11/07/2016, 11/18/2015, 11/24/2014, Additional history exists COLONOSCOPY SCREENING 01/05/2021 01/05/2011 65+ PNEUMOCOCCAL VACCINE Completed 05/08/2017, 05/26/2014 Results Not on fileafter 09/04/2017 Insurance Type Payer Benefit Subscriber ID Effective Phone Address Plan / Dates Group Medicare MEDICARE MEDICARE xxxxxxxxxx 2012- [place], PART A AND Present [place] B Indemnity BCBS BCBS xxxxxxxxxxxx 2017- PAR/TRAD Present PLAN Advance Directives Patient has advance care planning documents, and code status on file. For more i nformation, please contact: Waqas Almeida [address] [place] [address] Date Inactivated Comments Code Status Date Activated 07/31/2017 9:16 PM Full Code 07/31/2017 1:27 PM Code Status decision reached by: Patient
[2018-09-05 07:28] VITALS: BP 117/79
== END | disposition home or self-care (01) ==
LOC: OR 05:23
PROVIDERS: ATTEND Physical Medicine & Rehabilitation Pain Medicine
DX: M46.1 Sacroiliitis, not elsewhere classified (principal); G57.01 Lesion of sciatic nerve, right lower limb; M60.80 Other myositis, unspecified site; M47.816 Spondylosis without myelopathy or radiculopathy, lumbar region; M25.561 Pain in right knee; M25.512 Pain in left shoulder; M47.812 Spondylosis without myelopathy or radiculopathy, cervical region; G50.0 Trigeminal neuralgia; E11.9 Type 2 diabetes mellitus without complications; I10 Essential (primary) hypertension; I45.10 Unspecified right bundle-branch block; Z88.6 Allergy status to analgesic agent; Z88.2 Allergy status to sulfonamides; Z91.048 Other nonmedicinal substance allergy status; Z01.810 Encounter for preprocedural cardiovascular examination; Z01.812 Encounter for preprocedural laboratory examination; Z79.84 Long term (current) use of oral hypoglycemic drugs; Z68.32 Body mass index [BMI] 32.0-32.9, adult
CPT/HCPCS: 20552; G0260; 36415; 77003; 82948; 85025; 93005; J2001; J2250; J3010; J3301; Q9967

== ENCOUNTER → 2018-12-19 | Day surgery (SDC) | payer MEDICARE, BC ==
[2018-12-18 12:51] LABS: BASOPHILS # (AUTO) 0.1 (0.0-0.1); BASOPHILS % 1.1 % (0.0-1.0); EOSINOPHILS # (AUTO) 0.2 (0.0-0.4); EOSINOPHILS % 3.1 % (0.0-6.0); HEMATOCRIT 34.6 % (34.2-44.1); HEMOGLOBIN 11.4 g/dL (12.0-16.0); LYMPHOCYTES # (AUTO) 1.4 (1.0-3.2); LYMPHOCYTES % 22.9 % (18.0-39.1); MEAN CORPUSCULAR HEMOGLOBIN 29.2 pg (28-32); MEAN CORPUSCULAR HGB CONC 32.9 g/dL (31-35); MEAN CORPUSCULAR VOLUME 88.5 fL (81-99); MONOCYTES # (AUTO) 0.7 (0.2-0.8); MONOCYTES % 11.4 % (4.4-11.3); NEUTROPHILS # (AUTO) 3.7 (2.1-6.9); NEUTROPHILS % 60.7 % (38.7-80.0); PLATELET COUNT 308 x10e3/uL (140-360); RED BLOOD COUNT 3.91 x10e6/uL (3.6-5.1); RED CELL DISTRIBUTION WIDTH 12.4 % (11.7-14.4)
[~2018-12-19] MED LIST changes: -BUPIVACAINE HCL 0.5% INJ 30 ML VIAL INJ ONE; +DEXAMETHASONE SOD PHOS 10 MG/1 ML VIAL ONE; +HYDRALAZINE HCL10 MG PO; -IOPAMIDOL 200 MG/ML 20 ML VIAL IT ONE; +IOPAMIDOL 300 MG/ML 15ML VIAL IT ONE; -LIDOCAINE HCL 2% LOCAL INJ 5 ML SDV VIAL INJ ONE; +OXTELLAR XR150 MG PO; -TRIAMCINOLONE ACET 40 MG/ML VIAL ONE
[2018-12-19 08:00] VITALS: BP 148/78
== END | disposition home or self-care (01) ==
LOC: OR 05:24
PROVIDERS: ATTEND Physical Medicine & Rehabilitation Pain Medicine
DX: M54.16 Radiculopathy, lumbar region (principal); M47.896 Other spondylosis, lumbar region; M46.1 Sacroiliitis, not elsewhere classified; M70.62 Trochanteric bursitis, left hip; M70.61 Trochanteric bursitis, right hip; M47.812 Spondylosis without myelopathy or radiculopathy, cervical region; M54.12 Radiculopathy, cervical region; M50.222 Other cervical disc displacement at C5-C6 level; M54.81 Occipital neuralgia; I45.10 Unspecified right bundle-branch block; I25.10 Atherosclerotic heart disease of native coronary artery without angina pectoris; I10 Essential (primary) hypertension; E11.9 Type 2 diabetes mellitus without complications; Z88.6 Allergy status to analgesic agent; Z88.2 Allergy status to sulfonamides; Z91.048 Other nonmedicinal substance allergy status; Z01.810 Encounter for preprocedural cardiovascular examination; Z01.812 Encounter for preprocedural laboratory examination; Z79.84 Long term (current) use of oral hypoglycemic drugs; Z87.81 Personal history of (healed) traumatic fracture; Z91.81 History of falling
CPT/HCPCS: 36415 ×2; 64483; 64484 ×2; 82948; 85025; 93005; J1100; J2001; J2250; J2704; J3010; Q9967; 77003

== ENCOUNTER → 2019-01-16 | Day surgery (SDC) | payer MEDICARE, BC ==
[~2019-01-16] MED LIST changes: -DEXAMETHASONE SOD PHOS 10 MG/1 ML VIAL ONE; +LIDOCAINE HCL 2% LOCAL INJ 5 ML SDV VIAL INJ ONE; +TRIAMCINOLONE ACET 40 MG/ML VIAL ONE
[2019-01-16 08:55] VITALS: BP 131/77
== END | disposition home or self-care (01) ==
LOC: OR 06:20
PROVIDERS: ATTEND Physical Medicine & Rehabilitation Pain Medicine
DX: M47.896 Other spondylosis, lumbar region (principal); M54.16 Radiculopathy, lumbar region; M46.1 Sacroiliitis, not elsewhere classified; M47.812 Spondylosis without myelopathy or radiculopathy, cervical region; M54.12 Radiculopathy, cervical region; M54.81 Occipital neuralgia; M70.62 Trochanteric bursitis, left hip; M70.61 Trochanteric bursitis, right hip; E11.9 Type 2 diabetes mellitus without complications; I10 Essential (primary) hypertension; K21.9 Gastro-esophageal reflux disease without esophagitis; Z88.6 Allergy status to analgesic agent; Z88.2 Allergy status to sulfonamides; Z79.84 Long term (current) use of oral hypoglycemic drugs; Z87.81 Personal history of (healed) traumatic fracture; Z91.81 History of falling; Z98.84 Bariatric surgery status
CPT/HCPCS: 36415; 64493; 64494; 64495; 82948; J2001 ×2; J2250; J2704; J3010; J3301; Q9967; 77003

== ENCOUNTER → 2019-04-10 | Day surgery (SDC) | payer MEDICARE, BC ==
[2019-04-09 10:43] LABS: BASOPHILS # (AUTO) 0.1 (0.0-0.1); BASOPHILS % 1.1 % (0.0-1.0); EOSINOPHILS # (AUTO) 0.1 (0.0-0.4); EOSINOPHILS % 1.6 % (0.0-6.0); HEMATOCRIT 36.9 % (34.2-44.1); HEMOGLOBIN 12.4 g/dL (12.0-16.0); LYMPHOCYTES # (AUTO) 1.9 (1.0-3.2); LYMPHOCYTES % 22.3 % (18.0-39.1); MEAN CORPUSCULAR HEMOGLOBIN 28.9 pg (28-32); MEAN CORPUSCULAR HGB CONC 33.6 g/dL (31-35); MONOCYTES # (AUTO) 0.9 (0.2-0.8); MONOCYTES % 10.8 % (4.4-11.3); NEUTROPHILS # (AUTO) 5.3 (2.1-6.9); NEUTROPHILS % 63.4 % (38.7-80.0); PLATELET COUNT 344 x10e3/uL (140-360); RED BLOOD COUNT 4.29 x10e6/uL (3.6-5.1); RED CELL DISTRIBUTION WIDTH 13.1 % (11.7-14.4)
[~2019-04-10] MED LIST changes: -FENTANYL CITRATE/PF 100MCG/2 ML INJ ONE; +IOPAMIDOL 200 MG/ML 20 ML VIAL IT ONE; -IOPAMIDOL 300 MG/ML 15ML VIAL IT ONE; +KAPSPARGO SPRIN50 MG PO; +LABETALOL HCL 5 MG/ML 20ML VIAL ONE; -MIDAZOLAM HCL 2 MG/2 ML VIAL ONE
[2019-04-10 07:29] VITALS: BP 123/73
== END | disposition home or self-care (01) ==
LOC: OR 05:24
PROVIDERS: ATTEND Physical Medicine & Rehabilitation Pain Medicine
DX: M47.892 Other spondylosis, cervical region (principal); M47.896 Other spondylosis, lumbar region; M54.16 Radiculopathy, lumbar region; M79.18 Myalgia, other site; M46.1 Sacroiliitis, not elsewhere classified; M54.12 Radiculopathy, cervical region; M54.81 Occipital neuralgia; E78.6 Lipoprotein deficiency; E11.9 Type 2 diabetes mellitus without complications; I10 Essential (primary) hypertension; Z88.2 Allergy status to sulfonamides; Z88.6 Allergy status to analgesic agent; Z01.810 Encounter for preprocedural cardiovascular examination; Z01.812 Encounter for preprocedural laboratory examination; Z79.84 Long term (current) use of oral hypoglycemic drugs; Z87.81 Personal history of (healed) traumatic fracture; Z91.81 History of falling; Z87.891 Personal history of nicotine dependence
CPT/HCPCS: 36415 ×2; 64490; 64491; 64492; 76000; 82948; 85025; 93005; J2001 ×2; J2704; J3301; J3490; Q9967

== ENCOUNTER → 2020-05-27 | Day surgery (SDC) | payer MEDICARE, BC ==
[2020-05-25 13:48] LABS: BASOPHILS # (AUTO) 0.1 (0.0-0.1); BASOPHILS % 1.3 % (0.0-1.0); EOSINOPHILS # (AUTO) 0.2 (0.0-0.4); EOSINOPHILS % 2.8 % (0.0-6.0); HEMATOCRIT 39.7 % (34.2-44.1); LYMPHOCYTES % 28.1 % (18.0-39.1); MEAN CORPUSCULAR HEMOGLOBIN 28.6 pg (28-32); MEAN CORPUSCULAR HGB CONC 32.7 g/dL (31-35); MEAN CORPUSCULAR VOLUME 87.3 fL (81-99); MONOCYTES # (AUTO) 0.8 (0.2-0.8); NEUTROPHILS % 56.4 % (38.7-80.0); PLATELET COUNT 268 x10e3/uL (140-360); RED BLOOD COUNT 4.55 x10e6/uL (3.6-5.1)
[~2020-05-27] MED LIST changes: +ATENOLOL50 MG PO; +FENTANYL CITRATE/PF 100MCG/2 ML INJ ONE; +HYALURONIDASE 16 MG/2 ML SYR ONE; +JARDIANCE10 MG; +JARDIANCE25 MG PO; -LABETALOL HCL 5 MG/ML 20ML VIAL ONE; -LIDOCAINE HCL 2% LOCAL INJ 5 ML SDV VIAL INJ ONE; -MELOXICAM15 MG; +MELOXICAM15 MG PO; +MIDAZOLAM HCL 2 MG/2 ML VIAL ONE; +POVIDONE IODINE 0.05% 0.05 % ML PO ONE; +PROTONIX20 MG PO; -TRIAMCINOLONE ACET 40 MG/ML VIAL ONE; +VITAMIN B 12 PO; +VITAMIN D310 MC1 PO
[2020-05-27 07:27] VITALS: BP 122/66
== END | disposition home or self-care (01) ==
LOC: OR 05:36
PROVIDERS: ATTEND Physical Medicine & Rehabilitation Pain Medicine
DX: M17.11 Unilateral primary osteoarthritis, right knee (principal); G89.29 Other chronic pain; M47.896 Other spondylosis, lumbar region; M54.16 Radiculopathy, lumbar region; M70.62 Trochanteric bursitis, left hip; M70.61 Trochanteric bursitis, right hip; M47.812 Spondylosis without myelopathy or radiculopathy, cervical region; M79.18 Myalgia, other site; M54.81 Occipital neuralgia; I25.10 Atherosclerotic heart disease of native coronary artery without angina pectoris; I10 Essential (primary) hypertension; E11.9 Type 2 diabetes mellitus without complications; R00.1 Bradycardia, unspecified; F32.9 Major depressive disorder, single episode, unspecified; Z88.2 Allergy status to sulfonamides; Z88.6 Allergy status to analgesic agent; Z91.048 Other nonmedicinal substance allergy status; Z01.810 Encounter for preprocedural cardiovascular examination; Z01.812 Encounter for preprocedural laboratory examination; Z20.822 Contact with and (suspected) exposure to COVID-19; Z79.84 Long term (current) use of oral hypoglycemic drugs; Z87.81 Personal history of (healed) traumatic fracture; Z91.81 History of falling; Z87.891 Personal history of nicotine dependence
CPT/HCPCS: 20610; 36415 ×2; 76000; 77002; 82948; 85025; 93005; J2001; J2250; J2704; J3010; J7325; Q9967; U0002

== ENCOUNTER → 2020-06-03 | Day surgery (SDC) | payer MEDICARE, BC ==
[~2020-06-03] MED LIST changes: -POVIDONE IODINE 0.05% 0.05 % ML PO ONE; -PROPOFOL IV EMULSION 10 MG/ML 20 ML VIAL ONE
[2020-06-03 06:55] VITALS: BP 131/67
== END | disposition home or self-care (01) ==
LOC: OR 05:38
PROVIDERS: ATTEND Physical Medicine & Rehabilitation Pain Medicine
DX: M17.11 Unilateral primary osteoarthritis, right knee (principal); M54.16 Radiculopathy, lumbar region; M47.812 Spondylosis without myelopathy or radiculopathy, cervical region; M79.18 Myalgia, other site; M54.81 Occipital neuralgia; M70.62 Trochanteric bursitis, left hip; M70.61 Trochanteric bursitis, right hip; M47.896 Other spondylosis, lumbar region; E11.9 Type 2 diabetes mellitus without complications; I10 Essential (primary) hypertension; I25.10 Atherosclerotic heart disease of native coronary artery without angina pectoris; E78.5 Hyperlipidemia, unspecified; K21.9 Gastro-esophageal reflux disease without esophagitis; I45.10 Unspecified right bundle-branch block; Z91.048 Other nonmedicinal substance allergy status; Z88.6 Allergy status to analgesic agent; Z88.2 Allergy status to sulfonamides; Z01.812 Encounter for preprocedural laboratory examination; Z20.822 Contact with and (suspected) exposure to COVID-19; Z87.81 Personal history of (healed) traumatic fracture; Z91.81 History of falling
CPT/HCPCS: 20610; 36415; 77002; 82948; J2001; J2250; J3010; J7325; Q9967; U0002; 76000

== ENCOUNTER → 2020-06-10 | Day surgery (SDC) | payer MEDICARE, BC ==
[~2020-06-10] MED LIST changes: +LIDOCAINE HCL 2% LOCAL INJ 5 ML SDV VIAL INJ ONE; -MIDAZOLAM HCL 2 MG/2 ML VIAL ONE; +POVIDONE IODINE 0.05% 0.05 % ML PO ONE; +PROPOFOL IV EMULSION 10 MG/ML 20 ML VIAL ONE
[2020-06-10 07:25] VITALS: BP 122/81
== END | disposition home or self-care (01) ==
LOC: OR 05:33
PROVIDERS: ATTEND Physical Medicine & Rehabilitation Pain Medicine
DX: M17.11 Unilateral primary osteoarthritis, right knee (principal); M70.62 Trochanteric bursitis, left hip; M70.61 Trochanteric bursitis, right hip; M54.16 Radiculopathy, lumbar region; M47.816 Spondylosis without myelopathy or radiculopathy, lumbar region; M47.812 Spondylosis without myelopathy or radiculopathy, cervical region; M79.18 Myalgia, other site; M54.12 Radiculopathy, cervical region; M54.81 Occipital neuralgia; M25.562 Pain in left knee; E11.9 Type 2 diabetes mellitus without complications; I10 Essential (primary) hypertension; K21.9 Gastro-esophageal reflux disease without esophagitis; F32.9 Major depressive disorder, single episode, unspecified; Z88.6 Allergy status to analgesic agent; Z88.2 Allergy status to sulfonamides; Z01.812 Encounter for preprocedural laboratory examination; Z20.822 Contact with and (suspected) exposure to COVID-19; Z79.84 Long term (current) use of oral hypoglycemic drugs; Z91.81 History of falling; Z87.81 Personal history of (healed) traumatic fracture; Z87.891 Personal history of nicotine dependence
CPT/HCPCS: 20610; 36415; 77002; 82948; J2001 ×2; J2704; J7325; Q9967; U0002; 76000; J3010

== ENCOUNTER → 2021-01-13 | Day surgery (SDC) | payer MEDICARE, BC ==
[2021-01-11 11:48] LABS: BASOPHILS # (AUTO) 0.1 (0.0-0.1); BASOPHILS % 1.1 % (0.0-1.0); EOSINOPHILS # (AUTO) 0.3 (0.0-0.4); EOSINOPHILS % 4.2 % (0.0-6.0); HEMATOCRIT 38.9 % (34.2-44.1); HEMOGLOBIN 12.4 g/dL (12.0-16.0); LYMPHOCYTES # (AUTO) 2.3 (1.0-3.2); LYMPHOCYTES % 33.4 % (18.0-39.1); MEAN CORPUSCULAR HEMOGLOBIN 28.5 pg (28-32); MEAN CORPUSCULAR HGB CONC 31.9 g/dL (31-35); MEAN CORPUSCULAR VOLUME 89.4 fL (81-99); MONOCYTES # (AUTO) 0.7 (0.2-0.8); MONOCYTES % 9.3 % (4.4-11.3); NEUTROPHILS # (AUTO) 3.6 (2.1-6.9); NEUTROPHILS % 51.4 % (38.7-80.0); PLATELET COUNT 261 x10e3/uL (140-360); RED BLOOD COUNT 4.35 x10e6/uL (3.6-5.1); RED CELL DISTRIBUTION WIDTH 12.9 % (11.7-14.4)
[~2021-01-13] MED LIST changes: +DIOVAN40 MG; -HYALURONIDASE 16 MG/2 ML SYR ONE; +LANSOPRAZOLE30 MG; +MIDAZOLAM HCL 2 MG/2 ML VIAL ONE; +TRIAMCINOLONE ACET 40 MG/ML VIAL ONE
[2021-01-13 07:10] VITALS: BP 109/58
== END | disposition home or self-care (01) ==
LOC: OR 06:06
PROVIDERS: ATTEND Physical Medicine & Rehabilitation Pain Medicine
DX: M47.896 Other spondylosis, lumbar region (principal); M54.16 Radiculopathy, lumbar region; M17.0 Bilateral primary osteoarthritis of knee; M47.812 Spondylosis without myelopathy or radiculopathy, cervical region; M79.18 Myalgia, other site; M46.1 Sacroiliitis, not elsewhere classified; M54.12 Radiculopathy, cervical region; M54.81 Occipital neuralgia; M70.62 Trochanteric bursitis, left hip; M70.61 Trochanteric bursitis, right hip; R93.6 Abnormal findings on diagnostic imaging of limbs; E78.5 Hyperlipidemia, unspecified; I10 Essential (primary) hypertension; E11.9 Type 2 diabetes mellitus without complications; K21.9 Gastro-esophageal reflux disease without esophagitis; R00.1 Bradycardia, unspecified; F17.210 Nicotine dependence, cigarettes, uncomplicated; Z91.048 Other nonmedicinal substance allergy status; Z88.2 Allergy status to sulfonamides; Z88.6 Allergy status to analgesic agent; Z01.810 Encounter for preprocedural cardiovascular examination; Z01.812 Encounter for preprocedural laboratory examination; Z20.822 Contact with and (suspected) exposure to COVID-19; Z79.84 Long term (current) use of oral hypoglycemic drugs; Z79.899 Other long term (current) drug therapy; Z91.81 History of falling
CPT/HCPCS: 36415 ×2; 64493; 64494; 64495; 82948; 85025; 93005; J2001 ×2; J2250; J2704; J3010; J3301; Q9967; U0002; 77003

== ENCOUNTER → 2023-01-04 | Day surgery (SDC) | payer MEDICARE, BC ==
[2022-12-18 13:48] LABS: BASOPHILS # (AUTO) 0.1 (0.0-0.1); BASOPHILS % 0.4 % (0.0-1.0); EOSINOPHILS # (AUTO) 0.1 (0.0-0.4); EOSINOPHILS % 0.6 % (0.0-6.0); HEMATOCRIT 39.8 % (34.2-44.1); HEMOGLOBIN 13.4 g/dL (12.0-16.0); LYMPHOCYTES # (AUTO) 1.2 (1.0-3.2); LYMPHOCYTES % 7.5 % (18.0-39.1); MEAN CORPUSCULAR HEMOGLOBIN 29.1 pg (28-32); MEAN CORPUSCULAR HGB CONC 33.7 g/dL (31-35); MEAN CORPUSCULAR VOLUME 86.3 fL (81-99); MONOCYTES # (AUTO) 1.6 (0.2-0.8); NEUTROPHILS # (AUTO) 12.6 (2.1-6.9); NEUTROPHILS % 80.9 % (38.7-80.0); PLATELET COUNT 314 x10e3/uL (140-360); RED BLOOD COUNT 4.61 x10e6/uL (3.6-5.1); RED CELL DISTRIBUTION WIDTH 13.2 % (11.7-14.4); WHITE BLOOD COUNT 15.64 x10e3/uL (4.8-10.8)
[2023-01-02 13:51] LABS: BASOPHILS # (AUTO) 0.1 (0.0-0.1); BASOPHILS % 1.1 % (0.0-1.0); EOSINOPHILS # (AUTO) 0.2 (0.0-0.4); EOSINOPHILS % 2.9 % (0.0-6.0); HEMATOCRIT 39.3 % (34.2-44.1); HEMOGLOBIN 12.7 g/dL (12.0-16.0); LYMPHOCYTES # (AUTO) 1.6 (1.0-3.2); LYMPHOCYTES % 19.9 % (18.0-39.1); MEAN CORPUSCULAR HEMOGLOBIN 28.1 pg (28-32); MEAN CORPUSCULAR HGB CONC 32.3 g/dL (31-35); MEAN CORPUSCULAR VOLUME 86.9 fL (81-99); MONOCYTES # (AUTO) 0.8 (0.2-0.8); MONOCYTES % 9.5 % (4.4-11.3); NEUTROPHILS # (AUTO) 5.4 (2.1-6.9); NEUTROPHILS % 65.5 % (38.7-80.0); PLATELET COUNT 394 x10e3/uL (140-360); RED BLOOD COUNT 4.52 x10e6/uL (3.6-5.1); RED CELL DISTRIBUTION WIDTH 13.8 % (11.7-14.4)
[~2023-01-04] MED LIST changes: +ALBUTEROL 90 MCG/ACT INHALER INH ONE; +ALBUTEROL0.63 MG/3 NEB; +ASPIRIN EC81 MG PO; +BUPIVACAINE 0.25% 30ML SDV ONE; +DEXAMETHASONE SOD PHOS 10 MG/1 ML VIAL ONE; -FENTANYL CITRATE/PF 100MCG/2 ML INJ ONE; +LACTATED RINGER'S 1,000 ML ONE; -LANSOPRAZOLE30 MG; +LANSOPRAZOLE30 MG PO; +LEVOCETIRIZINE D5 MG PO; -MIDAZOLAM HCL 2 MG/2 ML VIAL ONE; +MONTELUKAST SOD10 MG PO; -POVIDONE IODINE 0.05% 0.05 % ML PO ONE; +SPIRIVA18 MCG INH; +SYNJARDY XR 251 EACH PO; -TRIAMCINOLONE ACET 40 MG/ML VIAL ONE
[2023-01-04 07:12] VITALS: TEMP 97.1
[2023-01-04 07:25] VITALS: BP 130/81; PULSE 88; RESP 16; O2SAT 99
== END | disposition home or self-care (01) ==
LOC: OR 06:02
PROVIDERS: ATTEND Physical Medicine & Rehabilitation Pain Medicine
DX: M54.16 Radiculopathy, lumbar region (principal); M70.62 Trochanteric bursitis, left hip; M70.61 Trochanteric bursitis, right hip; M47.896 Other spondylosis, lumbar region; M25.561 Pain in right knee; M54.12 Radiculopathy, cervical region; M47.812 Spondylosis without myelopathy or radiculopathy, cervical region; M17.12 Unilateral primary osteoarthritis, left knee; M79.18 Myalgia, other site; M46.1 Sacroiliitis, not elsewhere classified; M54.81 Occipital neuralgia; E11.9 Type 2 diabetes mellitus without complications; I10 Essential (primary) hypertension; Z88.6 Allergy status to analgesic agent; Z88.2 Allergy status to sulfonamides; Z91.048 Other nonmedicinal substance allergy status; Z01.810 Encounter for preprocedural cardiovascular examination; Z01.812 Encounter for preprocedural laboratory examination; Z79.84 Long term (current) use of oral hypoglycemic drugs; Z79.899 Other long term (current) drug therapy; Z87.81 Personal history of (healed) traumatic fracture; Z91.81 History of falling
CPT/HCPCS: 36415 ×3; 64483; 64484; 82948; 85025 ×2; 93005; J1100; J2001 ×2; J2704; J7121; Q9967; 77002

== ENCOUNTER → 2023-12-05 | Day surgery (SDC) | payer MEDICARE, BC ==
[2023-11-30 11:40] LABS: BASOPHILS # (AUTO) 0.1 (0.0-0.1); BASOPHILS % 0.9 % (0.0-1.0); EOSINOPHILS # (AUTO) 0.2 (0.0-0.4); HEMATOCRIT 41.4 % (34.2-44.1); LYMPHOCYTES % 32.9 % (18.0-39.1); MEAN CORPUSCULAR HEMOGLOBIN 28.8 pg (28-32); MEAN CORPUSCULAR HGB CONC 31.4 g/dL (31-35); MEAN CORPUSCULAR VOLUME 91.6 fL (81-99); MONOCYTES # (AUTO) 1.1 (0.2-0.8); MONOCYTES % 11.4 % (4.4-11.3); NEUTROPHILS # (AUTO) 4.8 (2.1-6.9); NEUTROPHILS % 51.7 % (38.7-80.0); PLATELET COUNT 300 x10e3/uL (140-360); RED BLOOD COUNT 4.52 x10e6/uL (3.6-5.1); RED CELL DISTRIBUTION WIDTH 13.5 % (11.7-14.4); WHITE BLOOD COUNT 9.21 x10e3/uL (4.8-10.8)
[~2023-12-05] MED LIST changes: -ALBUTEROL 90 MCG/ACT INHALER INH ONE; +ARICEPT5 MG PO; +ATROVENT HFA12.9 GM INH; -BUPIVACAINE 0.25% 30ML SDV ONE; -DEXAMETHASONE SOD PHOS 10 MG/1 ML VIAL ONE; +HYDRALAZINE HCL25 MG PO; -IOPAMIDOL 200 MG/ML 20 ML VIAL IT ONE; -LACTATED RINGER'S 1,000 ML ONE; -LIDOCAINE HCL 1% 30ML-PF VIAL ONE; -LIDOCAINE HCL 2% LOCAL INJ 5 ML SDV VIAL INJ ONE; -PROPOFOL IV EMULSION 10 MG/ML 20 ML VIAL ONE; +VENTOLIN HFA18 GM INH; +XYZAL5 MG PO
[2023-12-05] MEDS: LACTATED RINGER'S 1,000 ML ONE (10:21)
[2023-12-05 11:00] VITALS: BP 143/85; PULSE 79; RESP 17; O2SAT 98
== END | disposition home or self-care (01) ==
LOC: OR 08:43
PROVIDERS: ATTEND Physical Medicine & Rehabilitation Pain Medicine
DX: M47.896 Other spondylosis, lumbar region (principal); M46.1 Sacroiliitis, not elsewhere classified; M54.16 Radiculopathy, lumbar region; M54.12 Radiculopathy, cervical region; M47.812 Spondylosis without myelopathy or radiculopathy, cervical region; M17.12 Unilateral primary osteoarthritis, left knee; M54.81 Occipital neuralgia; M70.62 Trochanteric bursitis, left hip; M70.61 Trochanteric bursitis, right hip; E11.9 Type 2 diabetes mellitus without complications; I10 Essential (primary) hypertension; E78.5 Hyperlipidemia, unspecified; K21.9 Gastro-esophageal reflux disease without esophagitis; G89.29 Other chronic pain; F41.9 Anxiety disorder, unspecified; F32.A Depression, unspecified; Z88.6 Allergy status to analgesic agent; Z88.2 Allergy status to sulfonamides; Z91.048 Other nonmedicinal substance allergy status; Z01.812 Encounter for preprocedural laboratory examination; Z79.1 Long term (current) use of non-steroidal anti-inflammatories (NSAID); Z79.899 Other long term (current) drug therapy; Z79.84 Long term (current) use of oral hypoglycemic drugs
CPT/HCPCS: 36415 ×2; 64493; 64494; 64495; 82948; 85025; J7121; 77002

== ENCOUNTER → 2024-01-08 | Day surgery (SDC) | payer MEDICARE, BC ==
[2024-01-07 13:07] LABS: BASOPHILS # (AUTO) 0.1 (0.0-0.1); BASOPHILS % 1.1 % (0.0-1.0); EOSINOPHILS # (AUTO) 0.1 (0.0-0.4); HEMOGLOBIN 12.6 g/dL (12.0-16.0); LYMPHOCYTES # (AUTO) 1.9 (1.0-3.2); LYMPHOCYTES % 27.2 % (18.0-39.1); MEAN CORPUSCULAR HEMOGLOBIN 29.4 pg (28-32); MEAN CORPUSCULAR HGB CONC 31.5 g/dL (31-35); MEAN CORPUSCULAR VOLUME 93.2 fL (81-99); MONOCYTES # (AUTO) 1.1 (0.2-0.8); MONOCYTES % 15.7 % (4.4-11.3); NEUTROPHILS # (AUTO) 3.8 (2.1-6.9); NEUTROPHILS % 53.2 % (38.7-80.0); PLATELET COUNT 299 x10e3/uL (140-360); RED BLOOD COUNT 4.29 x10e6/uL (3.6-5.1); RED CELL DISTRIBUTION WIDTH 12.7 % (11.7-14.4); WHITE BLOOD COUNT 7.06 x10e3/uL (4.8-10.8)
[~2024-01-08] MED LIST changes: +IOPAMIDOL 200 MG/ML 20 ML VIAL IT ONE; +KETAMINE 50MG/5ML SYR ONE; +LACTATED RINGER'S 1,000 ML ONE; +LIDOCAINE HCL 2% LOCAL INJ 5 ML SDV VIAL INJ ONE; +PHENYLEPHRINE HCL 1% 10 MG/ML VIAL ONE; +PROPOFOL IV EMULSION 10 MG/ML 20 ML VIAL ONE; +SODIUM CHLORIDE 0.9% 100 ML ONE
[2024-01-08 07:21] VITALS: TEMP 97.6
[2024-01-08 07:35] VITALS: BP 122/88; PULSE 71; RESP 16; O2SAT 95
== END | disposition home or self-care (01) ==
LOC: OR 06:22
PROVIDERS: ATTEND Physical Medicine & Rehabilitation Pain Medicine
DX: M47.896 Other spondylosis, lumbar region (principal); M46.1 Sacroiliitis, not elsewhere classified; M54.16 Radiculopathy, lumbar region; M54.12 Radiculopathy, cervical region; M47.812 Spondylosis without myelopathy or radiculopathy, cervical region; M17.12 Unilateral primary osteoarthritis, left knee; M54.81 Occipital neuralgia; M70.62 Trochanteric bursitis, left hip; M70.61 Trochanteric bursitis, right hip; E11.9 Type 2 diabetes mellitus without complications; I10 Essential (primary) hypertension; E78.5 Hyperlipidemia, unspecified; K21.9 Gastro-esophageal reflux disease without esophagitis; F41.9 Anxiety disorder, unspecified; F32.A Depression, unspecified; Z88.6 Allergy status to analgesic agent; Z88.2 Allergy status to sulfonamides; Z91.048 Other nonmedicinal substance allergy status; Z01.812 Encounter for preprocedural laboratory examination; Z01.818 Encounter for other preprocedural examination; Z79.84 Long term (current) use of oral hypoglycemic drugs; Z79.1 Long term (current) use of non-steroidal anti-inflammatories (NSAID); Z79.899 Other long term (current) drug therapy; Z91.81 History of falling; Z87.81 Personal history of (healed) traumatic fracture
CPT/HCPCS: 36415 ×2; 64493; 64494; 64495; 71046; 82948; 85025; 93005; J2003; J2371; J2704; J7050; J7121; Q9967; 77002